=== PATIENT | female | born 1980 | race American Indian/Alaskan Native ===

== ENCOUNTER 2018-03-25 19:23 | Emergency (ER) | payer MEDICAID ==
[2018-03-25 20:31] LABS: Basophils # (Auto) 0.1 K/mm3 (0.0-0.1); Basophils % (Auto) 1.4 % (0.0-1.8); Eosinophils # (Auto) 0.1 K/mm3 (0.0-0.4); Eosinophils % (Auto) 1.5 % (0.0-4.3); Hematocrit 28.9 % (30.3-42.9); Lymphocytes # (Auto) 1.3 K/mm3 (1.2-5.4); Lymphocytes % (Auto) 15.2 % (13.4-35.0); Mean Corpuscular HGB Conc 31 % (30-34); Monocytes # (Auto) 0.5 K/mm3 (0.0-0.8); Monocytes % (Auto) 5.2 % (0.0-7.3); Platelet Count 337 K/mm3 (140-440); Red Blood Count 4.27 M/mm3 (3.65-5.03); Red Cell Distribution Width 18.8 % (13.2-15.2)
[2018-03-25 20:43] LABS: Mean Corpuscular Hemoglobin 21 pg (28-32); Mean Corpuscular Volume 68 fl (79-97)
[2018-03-25 20:44] LABS: BUN/Creatinine Ratio 12; Blood Urea Nitrogen 11 mg/dL (7-17); Calcium 9.3 mg/dL (8.4-10.2); Hemolysis Index 0
--- NOTE | 2018-03-25 21:08 | XRay Report ---
FINAL REPORT PROCEDURE: XR CHEST ROUTINE 2V TECHNIQUE: PA and lateral chest radiographs were obtained. CPT 30001 HISTORY: Shortness of breath COMPARISON: No prior studies are available for comparison. FINDINGS: Heart: Normal. Mediastinum/Vessels: Normal. Lungs/Pleural space: Normal. Bony thorax: No acute osseous abnormality. Other: A unipolar pacemaker is noted on the left side with lead in place. IMPRESSION: No acute pulmonary process..
[2018-03-26] MEDS ORDERED: HumuLIN R IV ONE (01:59)
[2018-03-26] MEDS ORDERED: ZOFRAN IV ONE ×2 (01:59→02:20)
[2018-03-26] MEDS ORDERED: BENADRYL IV ONE (02:20)
[2018-03-26] MEDS ORDERED: SUBLIMAZE IV ONE (02:20)
[2018-03-26 02:50] LABS: Bilirubin,Urine NEG (Negative); Blood,Urine NEG (Negative); Color,Urine Yellow (Yellow); Protein,Urine <15 mg/dL mg/dL (Negative); Urobilinogen,Urine < 2.0 mg/dL (<2.0)
[2018-03-26 02:59] LABS: HCG Qualitative,Urine Negative (Negative)
--- NOTE | 2018-03-26 03:02 | Emergency Department Report ---
HPI - General Chief Complaint: Weakness Time Seen by Provider: 03/26/18 01:01 - HPI HPI: The patient is a 38-year-old female whom presents for evaluation of chest pain. The patient has a history of diabetes, CHF, gastroparesis,. The patient reports 4days of constant bilateral chest pain, 10/10 in severity, sharp in quality, exacerbated with movement, and associated with diffuse generalized myalgias and arthralgias. The patient denies some to the chest, fever, cough, syncope, hemoptysis, unilateral leg swelling, oral contraceptive use, recent immobilization, history of DVT or PE. ED Past Medical Hx - Past Medical History Hx CVA: Yes (left side) Hx Congestive Heart Failure: Yes Hx Diabetes: Yes Hx of Cancer: Yes (pituary tumor) Additional medical history: Sleep apnea, anemia, gastroperesis - Surgical History Additional Surgical History: Defib placement - Social History Smoking Status: Current Every Day Smoker Substance Use Type: Alcohol - Medications Home Medications: Home Medications Medication Instructions Recorded Confirmed Last Taken Type ALBUTEROL Inhaler [ProAir HFA 2 puff IH QID PRN #1 inhalation 03/26/18 Unknown Rx Inhaler] Ondansetron [Zofran TAB] 4 mg PO Q8HR PRN #15 tablet 03/26/18 Unknown Rx traMADol [Ultram 50 MG tab] 50 mg PO Q6HR PRN #15 tablet 03/26/18 Unknown Rx ED Review of Systems ROS: Stated complaint: GOGO,BODY PAIN Other details as noted in HPI Constitutional: denies: fever ENT: denies: throat or neck pain Respiratory: denies: cough, shortness of breath Cardiovascular: reports chest pain Endocrine: denies unexplained weight loss or gain Gastrointestinal: denies: abdominal pain, nausea Genitourinary: denies: dysuria Musculoskeletal: denies: leg swelling Skin: denies: rash Neurological: denies: headache Hematological/Lymphatic: denies: easy bleeding or easy bruising Psych: denies sadness or hopelessness Physical Exam - Physical Exam Vital Signs: Vital Signs 03/25/18 03/25/18 03/26/18 19:35 19:50 02:24 Temperature 98.3 F 98.3 F 98.7 F Pulse Rate 89 90 60 Respiratory 20 20 16 Rate Blood Pressure 100/50 100/50 Blood Pressure 147/95 [Right] O2 Sat by Pulse 96 96 99 Oximetry Physical Exam: General: well-nourished, well-developed, no acute distress Head: Normocephalic, atraumatic Eyes: normal sclera ENT: Mucous membranes are pink and moist Neck: trachea midline, neck supple, No neck stiffness, no cervical adenopathy Respiratory: Breath sounds equal bilaterally, no wheezing, rales, or rhonchi Cardio: S1 and S2 present, no murmurs, rubs, gallops, capillary refill is brisk Abdomen: Normoactive bowel sounds, soft abdomen, no tenderness Chest WALL/Back: tenderness to palpation of the bilateral chest wall is present , no CVA tenderness with percussion Musc: No pitting edema Skin: No rash Neuro: no facial drooping, normal speech Psych: Normal affect ED Course Vital Signs 03/25/18 03/25/18 03/26/18 19:35 19:50 02:24 Temperature 98.3 F 98.3 F 98.7 F Pulse Rate 89 90 60 Respiratory 20 20 16 Rate Blood Pressure 100/50 100/50 Blood Pressure 147/95 [Right] O2 Sat by Pulse 96 96 99 Oximetry ED Medical Decision Making - Lab Data Result diagrams: 03/25/18 20:10 03/25/18 20:10 - Medical Decision Making The patient was seen and examined by myself. The patient is placed on a pvc monitor and continuous pulse ox. On initial evaluation, the patient was found to be in no distress. EKG was negative for findings suggestive of acute cardiac infarct. Labs and imaging are obtained. The patient is given IV pain medicine. Chest x-ray is negative for pneumothorax, focal consolidation, pulmonary vascular congestion, pleural effusion, or other obvious acute cardiopulmonary disease process. Lab results revealed elevated glucose level of 400, and otherwise were non-concerning including levels of troponin, WBC, hemoglobin, hematocrit, electrolytes, renal function. The patient is given IV insulin for treatment of her hyperglycemia. The patient was reevaluated and reported that their symptoms were markedly improved. As the patient has a RYAN risk score less than 2, and a well's score less than 2, the patient is at low risk of ACS or pulmonary emboli etiology of their symptoms. The patient is stable for discharge with outpatient follow-up. The patient is given follow-up and return instructions. The patient expressed understanding and agreed with the plan. The patient is discharged in stable condition. Critical care attestation.: If time is entered above; I have spent that time in minutes in the direct care of this critically ill patient, excluding procedure time. ED Disposition Clinical Impression: Acute chest pain, Acute hyperglycemia, Nausea alone Dyspnea, unspecified Qualifiers: Dyspnea type: unspecified Qualified Code(s): R06.00 - Dyspnea, unspecified Disposition: TO HOME OR SELFCARE Is pt being admited?: No Does the pt Need Aspirin: No Condition: Stable Instructions: Chest Pain (ED), Costochondritis (ED), Dyspnea (ED), Diabetic Hyperglycemia (ED) Prescriptions: ALBUTEROL Inhaler [ProAir HFA Inhaler] 2 puff IH QID PRN #1 inhalation PRN Reason: Shortness Of Breath Ondansetron [Zofran TAB] 4 mg PO Q8HR PRN #15 tablet PRN Reason: Nausea traMADol [Ultram 50 MG tab] 50 mg PO Q6HR PRN #15 tablet PRN Reason: Pain Referrals: PRIMARY CARE,MD [Primary Care Provider] - 3-5 Days Time of Disposition: 03:01
--- NOTE | 2018-03-26 03:20 | XRay Report ---
FINAL REPORT EXAM: XR CHEST 1V AP HISTORY: chest pain TECHNIQUE: A portable upright view the chest was submitted. Comparison is made to the study of 03/25/2018. FINDINGS: The heart size is normal. The lungs are not congested. There are no localized infiltrates or effusions. There is a pacemaker overlying the left chest wall with the lead in the right ventricle. The skeletal structures do not show any acute changes. IMPRESSION: No active chest disease.
[2018-03-26 04:03] VITALS: BP 155/92
== END 2018-03-26 04:30 | disposition home or self-care (01) ==
LOC: ED 19:23 → MERGE 19:23 → ED 03-26 04:30
DX: E11.65 Type 2 diabetes mellitus with hyperglycemia (principal); R07.89 Other chest pain; R11.0 Nausea; R06.00 Dyspnea, unspecified; I50.9 Heart failure, unspecified; F17.200 Nicotine dependence, unspecified, uncomplicated; Z86.73 Personal history of transient ischemic attack (TIA), and cerebral infarction without residual deficits
CPT/HCPCS: 36415; 71045; 71046; 80048; 81001; 81025; 82550; 82962; 83880; 84484; 84703; 85025; 93005; 93010; 96374; 96375; 99285; J1200; J2405; J3010; J1815

== ENCOUNTER 2018-03-28 13:34 | Inpatient (IN) | payer MEDICAID ==
[2018-03-28] MEDS ORDERED: NACL 0.9% 1000 ML 1,000 ML IV ONE (14:34)
[2018-03-28] MEDS ORDERED: TYLENOL PO ONE (14:50)
[2018-03-28 14:56] LABS: Basophils # (Auto) 0.1 K/mm3 (0.0-0.1); Basophils % (Auto) 1.1 % (0.0-1.8); Eosinophils # (Auto) 0.1 K/mm3 (0.0-0.4); Eosinophils % (Auto) 1.2 % (0.0-4.3); Lymphocytes # (Auto) 1.9 K/mm3 (1.2-5.4); Lymphocytes % (Auto) 18.3 % (13.4-35.0); Mean Corpuscular HGB Conc 30 % (30-34); Monocytes # (Auto) 0.5 K/mm3 (0.0-0.8); Monocytes % (Auto) 4.8 % (0.0-7.3); Platelet Count 420 K/mm3 (140-440); Red Blood Count 5.16 M/mm3 (3.65-5.03); Red Cell Distribution Width 18.8 % (13.2-15.2)
[2018-03-28 15:01] LABS: Hematocrit 34.9 % (30.3-42.9); Hemoglobin 10.6 gm/dl (10.1-14.3); Mean Corpuscular Hemoglobin 21 pg (28-32); Mean Corpuscular Volume 68 fl (79-97)
[2018-03-28 15:15] LABS: Alanine Aminotransferase 14 units/L (7-56); Albumin 4.2 g/dL (3.9-5); BUN/Creatinine Ratio 13; Blood Urea Nitrogen 12 mg/dL (7-17); Calcium 9.3 mg/dL (8.4-10.2); Hemolysis Index 7
[2018-03-28] MEDS ORDERED: ZOFRAN IV ONE (20:58)
[2018-03-28] MEDS ORDERED: SUBLIMAZE IV ONE (21:07)
--- NOTE | 2018-03-28 21:15 | Emergency Department Report ---
HPI - General Chief Complaint: Nausea/Vomiting/Diarrhea Time Seen by Provider: 03/28/18 20:58 - HPI HPI: Room 4 The patient is a 38-year-old female presenting with a chief complaint of nausea vomiting and body aches. The patient has a history of gastroparesis and states the past 2 weeks she's had diffuse body aches in addition to nausea and vomiting. Patient states she came to the ED earlier in the week and was given medication which improved her symptoms until the next day. The following day the patient states her symptoms began returning and gradually worsening. Patient denies any history of fever at home. Patient gives her pain score a of 10/10. Location: Diffuse body, GI system Duration: 2 weeks Quality: Body aches, vomiting Severity: 10/10 Modifying factors: [see above] Context: [see above] Mode of transportation: [not driving] ED Past Medical Hx - Past Medical History Previous Medical History?: Yes Hx CVA: Yes Hx Congestive Heart Failure: Yes Additional medical history: gastroparesis - Surgical History Past Surgical History?: Yes Additional Surgical History: Pituitary tumor removal, cryosurgery for cervical CA - Family History Family history: no significant - Social History Smoking Status: Current Every Day Smoker (1/2 pack per day) Substance Use Type: None (denies illicit drug use) ED Review of Systems ROS: Stated complaint: WEAKNESS Other details as noted in HPI Constitutional: denies: fever Eyes: denies: eye pain ENT: denies: throat pain Respiratory: no symptoms reported Cardiovascular: denies: chest pain Endocrine: denies: unexplained weight loss Gastrointestinal: abdominal pain, nausea, vomiting Genitourinary: denies: dysuria Musculoskeletal: myalgia Skin: denies: change in color Neurological: denies: headache Physical Exam - Physical Exam Vital Signs: Vital Signs 03/28/18 03/28/18 14:28 20:20 Temperature 100.2 F H 98.5 F Pulse Rate 70 77 Respiratory 16 18 Rate Blood Pressure 192/101 Blood Pressure 154/93 [Left] O2 Sat by Pulse 95 100 Oximetry Physical Exam: GENERAL: The patient is well-developed well-nourished female sitting in chair not appearing to be in acute distress HEENT: Normocephalic. Atraumatic. Extraocular motions are intact. Patient has moist mucous membranes. NECK: Supple. Trachea midline CHEST/LUNGS: Clear to auscultation. There is no respiratory distress noted. HEART/CARDIOVASCULAR: Regular. There is no tachycardia. There is no gallop rub or murmur. ABDOMEN: Abdomen is soft, but diffusely tender to palpation. There is no rebound or guarding. Patient has normal bowel sounds. There is no abdominal distention. SKIN: There is no rash. There is no edema. There is no diaphoresis. NEURO: The patient is awake, alert, and oriented. The patient is cooperative. The patient has normal speech MUSCULOSKELETAL: There is no evidence of acute injury. ED Course Vital Signs 03/28/18 03/28/18 14:28 20:20 Temperature 100.2 F H 98.5 F Pulse Rate 70 77 Respiratory 16 18 Rate Blood Pressure 192/101 Blood Pressure 154/93 [Left] O2 Sat by Pulse 95 100 Oximetry - Reevaluation(s) Reevaluation #1: 03/28/18 23:57 Patient continues to complain of abdominal pain despite multiple analgesics. Will admit the patient to the hospital for pain control ED Medical Decision Making - Lab Data Result diagrams: 03/28/18 14:37 03/28/18 14:37 Laboratory Tests 03/28/18 03/28/18 03/28/18 14:37 14:37 14:37 WBC 10.1 RBC 5.16 H Hgb 10.6 Hct 34.9 MCV 68 L MCH 21 L MCHC 30 RDW 18.8 H Plt Count 420 Lymph % (Auto) 18.3 [place] % (Auto) 4.8 Eos % (Auto) 1.2 Baso % (Auto) 1.1 Lymph # 1.9 [place] # 0.5 Eos # 0.1 Baso # 0.1 Seg Neutrophils % 74.6 H Seg Neutrophils # 7.5 Sodium 138 Potassium 3.8 Chloride 93.5 L Carbon Dioxide 25 Anion Gap 23 BUN 12 Creatinine 0.9 Estimated GFR > 60 BUN/Creatinine Ratio 13 Glucose 383 H Calcium 9.3 Total Bilirubin 0.30 AST 13 ALT 14 Alkaline Phosphatase 106 Total Protein 7.3 Albumin 4.2 Albumin/Globulin Ratio 1.4 Lipase HCG, Qual Negative Urine Color Urine Turbidity Urine pH Ur Specific [place] Urine Protein Urine Glucose (UA) Urine Ketones Urine Blood Urine Nitrite Urine Bilirubin Urine Urobilinogen Ur Leukocyte Esterase Urine WBC (Auto) Urine RBC (Auto) U Epithel Cells (Auto) Urine Mucus 03/28/18 03/28/18 21:15 22:14 WBC RBC Hgb Hct MCV MCH MCHC RDW Plt Count Lymph % (Auto) [place] % (Auto) Eos % (Auto) Baso % (Auto) Lymph # [place] # Eos # Baso # Seg Neutrophils % Seg Neutrophils # Sodium Potassium Chloride Carbon Dioxide Anion Gap BUN Creatinine Estimated GFR BUN/Creatinine Ratio Glucose Calcium Total Bilirubin AST ALT Alkaline Phosphatase Total Protein Albumin Albumin/Globulin Ratio Lipase 48 HCG, Qual Urine Color Yellow Urine Turbidity Clear Urine pH 6.0 Ur Specific [place] 1.027 Urine Protein <15 mg/dl Urine Glucose (UA) >=500 Urine Ketones 80 Urine Blood Neg Urine Nitrite Neg Urine Bilirubin Neg Urine Urobilinogen < 2.0 Ur Leukocyte Esterase Tr Urine WBC (Auto) 2.0 Urine RBC (Auto) 2.0 U Epithel Cells (Auto) 2.0 Urine Mucus Few - Radiology Data Radiology results: report reviewed (CT abdomen and pelvis), image reviewed (CT abdomen and pelvis) [facility] [address] [place] [address] Cat Scan Report Signed Patient: JENNIFER BA MR#: [id number] : 1980 Acct:[id number] Age/Sex: 38 / F ADM Date: 03/28/18 Loc: ED Attending Dr: Ordering Physician: NOBLE JO MD Date of Service: 03/28/18 Procedure(s): CT abdomen pelvis w con Accession Number(s): [id number] cc: NOBLE JO MD FINAL REPORT PROCEDURE: CT ABDOMEN PELVIS W CON TECHNIQUE: Computerized axial tomography of the abdomen and pelvis was performed after the IV injection of iodinated nonionic contrast. HISTORY: abdominal pain nausea vomiting COMPARISON: No prior studies are available for comparison. FINDINGS: Visualized lower thorax: No significant abnormality. Liver: Normal size and attenuation. Spleen: Normal size and attenuation. Gallbladder and biliary system: Cholecystectomy clips. Pancreas: Normal. Adrenals: Normal. Kidneys: Normal. GI tract: Normal. Lymph nodes and mesentery: Normal. Vasculature: Normal. Bladder: Normal. Reproductive organs: Normal uterus and adnexa. Peritoneum: No free fluid. Musculoskeletal structures: No significant abnormality. Other: None. IMPRESSION: No acute intra abdominal abnormality. No mass or obstruction Transcribed By: BRP Dictated By: DARRYL ALANIS MD Electronically Authenticated By: DARRYL ALANIS MD Signed Date/Time: 03/28/182251 DD/ 51 TD/TT: 03/28/182251 - Differential Diagnosis gastroparesis, pyelonephritis, small bowel obstruction, UTI Critical care attestation.: If time is entered above; I have spent that time in minutes in the direct care of this critically ill patient, excluding procedure time. ED Disposition Clinical Impression: Nausea & vomiting, Gastroparesis, Intractable abdominal pain Disposition: OP ADMIT IP TO THIS HOSP Is pt being admited?: Yes Does the pt Need Aspirin: No Condition: Fair Referrals: PRIMARY CARE, [Primary Care Provider] - 3-5 Days Time of Disposition: 00:00 (hospitalist paged (Dr Solomon))
[2018-03-28 21:24] LABS: Bilirubin,Urine NEG (Negative); Blood,Urine NEG (Negative); Color,Urine Yellow (Yellow); Mucus,Urine FEW /HPF; Protein,Urine <15 mg/dL mg/dL (Negative); Urobilinogen,Urine < 2.0 mg/dL (<2.0)
[2018-03-28] MEDS ORDERED: MORPHINE IV ONE ×2 (21:45→23:56)
[2018-03-28] MEDS ORDERED: BENADRYL IV ONE (21:45)
--- NOTE | 2018-03-28 22:57 | Cat Scan Report ---
FINAL REPORT PROCEDURE: CT ABDOMEN PELVIS W CON TECHNIQUE: Computerized axial tomography of the abdomen and pelvis was performed after the IV injection of iodinated nonionic contrast. HISTORY: abdominal pain nausea vomiting COMPARISON: No prior studies are available for comparison. FINDINGS: Visualized lower thorax: No significant abnormality. Liver: Normal size and attenuation. Spleen: Normal size and attenuation. Gallbladder and biliary system: Cholecystectomy clips. Pancreas: Normal. Adrenals: Normal. Kidneys: Normal. GI tract: Normal. Lymph nodes and mesentery: Normal. Vasculature: Normal. Bladder: Normal. Reproductive organs: Normal uterus and adnexa. Peritoneum: No free fluid. Musculoskeletal structures: No significant abnormality. Other: None. IMPRESSION: No acute intra abdominal abnormality. No mass or obstruction
[2018-03-28] MEDS ORDERED: DILAUDID IV ONE (23:35)
[2018-03-29] MEDS ORDERED: NACL 0.9% 1000 ML 1,000 ML ONE ×2 (00:10→04:30)
[2018-03-29] MEDS ORDERED: TYLENOL PO PRN (01:18)
[2018-03-29] MEDS ORDERED: SODIUM CHLORIDE FLUSH SYRINGE 10 ML IV PRN (01:18)
[2018-03-29] MEDS ORDERED: D50W (25GM) Syringe IV PRN (01:29)
--- NOTE | 2018-03-29 02:58 | History and Physical Report ---
History of Present Illness Date of examination: 03/29/18 Date of admission: 03/29/18 Chief complaint: Nausea and vomiting History of present illness: Patient is a 38 year old -[place] female with history of diabetes mellitus who presented to the ED on account of 2 days history of nausea with vomiting. She has associated generalized body aches, lower abdomen pain, fever without chills, headaches, dizziness, left-sided chest pain and shortness of breath. No diaphoresis, palpitations, leg swelling, orthopnea or PND. No constipation, diarrhea, dysuria or frequency. No syncope or loss of consciousness. Past History Past Medical History: diabetes, other (history of CVA and CHF) Past Surgical History: tonsillectomy, Other (cryosurgery for cervical cancer, pituitary tumor removal) Social history: smoking (smokes half pack of cigarettes per day. She denies alcohol or illicit drug use) Family history: other (reviewed and noncontributory) Medications and Allergies Allergies Allergy/AdvReac Type Severity Reaction Status Date / Time No Known Allergies Allergy Verified 03/28/18 14:28 Active Meds: Active Medications Acetaminophen (Tylenol) 650 mg PO Q4H PRN PRN Reason: Pain MILD(1-3)/Fever >100.5/LOPEZ Dextrose (D50w (25gm) Syringe) 50 ml IV PRN PRN PRN Reason: Hypoglycemia Sodium Chloride (Nacl 0.9% 1000 Ml) 1,000 mls @ 100 mls/hr IV DIRECT SASHA Insulin Glargine (Lantus) 20 units SUB-Q BID SASHA Insulin Human Lispro (Humalog) 0 unit SUB-Q ACHS SASHA; Protocol Metoclopramide HCl (Reglan) 5 mg IV QID SASHA Morphine Sulfate (Morphine) 2 mg IV Q4H PRN PRN Reason: Pain, Moderate (4-6) Ondansetron HCl (Zofran) 4 mg IV Q6H PRN PRN Reason: Nausea And Vomiting Oxycodone/Acetaminophen (Percocet 5/325) 1 tab PO Q6H PRN PRN Reason: Pain, Moderate (4-6) Pantoprazole Sodium (Protonix) 40 mg IV BID SASHA Sodium Chloride (Sodium Chloride Flush Syringe 10 Ml) 10 ml IV BID SASHA Sodium Chloride (Sodium Chloride Flush Syringe 10 Ml) 10 ml IV PRN PRN PRN Reason: LINE FLUSH Sucralfate (Carafate) 1 gm PO QID SASHA Review of Systems All systems: negative (except as documented in the HPI, all other systems were reviewed and negative) Exam - Constitutional Vitals: Temp Pulse Resp BP Pulse Ox 98.5 F 75 18 189/96 100 03/28/18 20:20 03/28/18 22:31 03/29/18 00:50 03/28/18 22:31 03/28/18 22:31 General appearance: Present: no acute distress, obese - EENT Eyes: Present: PERRL, EOM intact ENT: hearing intact, clear oral mucosa - Neck Neck: Present: supple, normal ROM - Respiratory Respiratory effort: normal Respiratory: bilateral: CTA - Cardiovascular Rhythm: regular Heart Sounds: Present: S1 & S2 - Extremities Extremities: No edema Peripheral Pulses: within normal limits - Abdominal General gastrointestinal: Present: soft, tender (mild and generalized), normal bowel sounds, other (obese) - Integumentary Integumentary: Present: clear, warm, dry - Musculoskeletal Musculoskeletal: strength equal bilaterally - Neurologic Neurologic: CNII-XII intact Results - Labs CBC & Chem 7: 03/28/18 14:37 03/28/18 14:37 Labs: Laboratory Last Values WBC 10.1 K/mm3 (4.5-11.0) 03/28/18 14:37 RBC 5.16 M/mm3 (3.65-5.03) H 03/28/18 14:37 Hgb 10.6 gm/dl (10.1-14.3) 03/28/18 14:37 Hct 34.9 % (30.3-42.9) 03/28/18 14:37 MCV 68 fl (79-97) L 03/28/18 14:37 MCH 21 pg (28-32) L 03/28/18 14:37 MCHC 30 % (30-34) 03/28/18 14:37 RDW 18.8 % (13.2-15.2) H 03/28/18 14:37 Plt Count 420 K/mm3 (140-440) 03/28/18 14:37 Lymph % (Auto) 18.3 % (13.4-35.0) 03/28/18 14:37 [place] % (Auto) 4.8 % (0.0-7.3) 03/28/18 14:37 Eos % (Auto) 1.2 % (0.0-4.3) 03/28/18 14:37 Baso % (Auto) 1.1 % (0.0-1.8) 03/28/18 14:37 Lymph # 1.9 K/mm3 (1.2-5.4) 03/28/18 14:37 [place] # 0.5 K/mm3 (0.0-0.8) 03/28/18 14:37 Eos # 0.1 K/mm3 (0.0-0.4) 03/28/18 14:37 Baso # 0.1 K/mm3 (0.0-0.1) 03/28/18 14:37 Seg Neutrophils % 74.6 % (40.0-70.0) H 03/28/18 14:37 Seg Neutrophils # 7.5 K/mm3 (1.8-7.7) 03/28/18 14:37 Sodium 138 mmol/L (137-145) 03/28/18 14:37 Potassium 3.8 mmol/L (3.6-5.0) 03/28/18 14:37 Chloride 93.5 mmol/L (98-107) L 03/28/18 14:37 Carbon Dioxide 25 mmol/L (22-30) 03/28/18 14:37 Anion Gap 23 mmol/L 03/28/18 14:37 BUN 12 mg/dL (7-17) 03/28/18 14:37 Creatinine 0.9 mg/dL (0.7-1.2) 03/28/18 14:37 Estimated GFR > 60 ml/min 03/28/18 14:37 BUN/Creatinine Ratio 13 % 03/28/18 14:37 Glucose 383 mg/dL (65-100) H 03/28/18 14:37 Calcium 9.3 mg/dL (8.4-10.2) 03/28/18 14:37 Total Bilirubin 0.30 mg/dL (0.1-1.2) 03/28/18 14:37 AST 13 units/L (5-40) 03/28/18 14:37 ALT 14 units/L (7-56) 03/28/18 14:37 Alkaline Phosphatase 106 units/L (35-129) 03/28/18 14:37 Total Protein 7.3 g/dL (6.3-8.2) 03/28/18 14:37 Albumin 4.2 g/dL (3.9-5) 03/28/18 14:37 Albumin/Globulin Ratio 1.4 % 03/28/18 14:37 Lipase 48 units/L (13-60) 03/28/18 22:14 HCG, Qual Negative (Negative) 03/28/18 14:37 Urine Color Yellow (Yellow) 03/28/18 21:15 Urine Turbidity Clear (Clear) 03/28/18 21:15 Urine pH 6.0 (5.0-7.0) 03/28/18 21:15 Ur Specific [place] 1.027 (1.003-1.030) 03/28/18 21:15 Urine Protein <15 mg/dl mg/dL (Negative) 03/28/18 21:15 Urine Glucose (UA) >=500 mg/dL (Negative) 03/28/18 21:15 Urine Ketones 80 mg/dL (Negative) 03/28/18 21:15 Urine Blood Neg (Negative) 03/28/18 21:15 Urine Nitrite Neg (Negative) 03/28/18 21:15 Urine Bilirubin Neg (Negative) 03/28/18 21:15 Urine Urobilinogen < 2.0 mg/dL (<2.0) 03/28/18 21:15 Ur Leukocyte Esterase Tr (Negative) 03/28/18 21:15 Urine WBC (Auto) 2.0 /HPF (0.0-6.0) 03/28/18 21:15 Urine RBC (Auto) 2.0 /HPF (0.0-6.0) 03/28/18 21:15 U Epithel Cells (Auto) 2.0 /HPF (0-13.0) 03/28/18 21:15 Urine Mucus Few /HPF 03/28/18 21:15 Assessment and Plan Assessment and plan: Intractable nausea and vomiting, likely secondary to gastroparesis -CT abdomen/pelvis negative, lipase level wnl -Pt placed on IV Reglan -Consider GI consult if no improvement Intractable generalized abdominal pain, probably secondary to gastritis/GERD -Pt placed on IV Protonix and sucralfate Atypical chest pain, rule out ACS -Serial troponin level monitoring -Monitor on telemetry 24 hours Hypertensive emergency with SBP>190 -Placed on when necessary IV hydralazine Diabetes mellitus with hyperglycemia -Placed on both basal and prandial insulin regimen -Check hemoglobin A1c level Fever, exact cause unknown -Urinalysis negative -Follow up blood culture results Morbid obesity with BMI of 47.2 -Weight loss recommended History of Obstructive sleep apnea -cont CPAP at night Prophylaxis -DVT prophylaxis with SCD 38 minutes spent coordinating care
[2018-03-29] MEDS ORDERED: APRESOLINE IV PRN (03:11)
[2018-03-29] MEDS: MORPHINE IV PRN ×4 (04:20→20:22)
[2018-03-29] MEDS ORDERED: MORPHINE ONE (04:30)
[2018-03-29] MEDS: BENADRYL PO PRN (05:29)
[2018-03-29] MEDS: NACL 0.9% 1000 ML 1,000 ML IV SCH ×2 (05:52→14:52)
--- NOTE | 2018-03-29 08:32 | Event Note ---
Date: 03/29/18 Patient is 38 yo presented with intractable nausea and vomiting likely diabetic gastroparesis. Continue Reglan.
[2018-03-29] MEDS ORDERED: LANTUS SUB-Q SCH (10:00)
[2018-03-29 10:04] LABS: Chol/HDL Ratio 5.44 %; HDL Cholesterol 29 mg/dL (40-59); LDL Cholesterol,Direct 118 mg/dL (50-130)
[2018-03-29] MEDS: ZOFRAN IV PRN (10:34)
[2018-03-29] MEDS: REGLAN IV SCH ×4 (10:34→23:00)
[2018-03-29] MEDS: PROTONIX IV SCH ×2 (10:34→23:00)
[2018-03-29] MEDS: CARAFATE PO SCH ×4 (10:35→23:00)
[2018-03-29] MEDS ORDERED: ASPIRIN PO STA (14:00)
[2018-03-29] MEDS: HumaLOG SUB-Q SCH ×3 (14:48→23:02)
[2018-03-29] MEDS: SODIUM CHLORIDE FLUSH SYRINGE 10 ML IV SCH ×2 (14:51→23:02)
[2018-03-29] MEDS ORDERED: NITRO-BID 2% TP SCH (15:00)
[2018-03-29] MEDS: LANTUS SUB-Q SCH (23:01)
[2018-03-30] MEDS: MORPHINE IV PRN ×6 (00:23→21:36)
[2018-03-30] MEDS: NACL 0.9% 1000 ML 1,000 ML IV SCH ×3 (04:32→21:55)
[2018-03-30 07:29] LABS: BUN/Creatinine Ratio 19; Blood Urea Nitrogen 13 mg/dL (7-17); Calcium 8.4 mg/dL (8.4-10.2); Hemolysis Index 12
[2018-03-30] MEDS: HumaLOG SUB-Q SCH ×7 (08:53→21:50)
[2018-03-30] MEDS: BENADRYL PO PRN ×2 (08:58→15:24)
[2018-03-30] MEDS: ZOFRAN IV PRN (08:58)
[2018-03-30] MEDS ORDERED: ASPIRIN PO SCH (10:00)
--- NOTE | 2018-03-30 10:32 | Progress Note ---
Assessment and Plan Assessment and plan: Intractable nausea and vomiting. Change Reglan dose to 10mg iv qac and hs Gastroparesis. Continue Reglan at higher dose Diabetes mellitus type 2 uncontrolled. Continue fingerstick glucose q ac and hs Morbid obesity. Counseled on diet and exercise. Full code status History Interval history: Still having nausea and vomiting Gen body pain Hospitalist Physical - Physical exam Narrative exam: Constitutional; Not in acute distress, morbidly obese HEENT: Atraumatic, normocephalic Neck: supple, no lymphadenopathy, JVD or thyromegaly Lungs: Clear to auscultation, bilaterally, no wheeze, no crackles CVS; S1-S2 regular, no murmurs, rubs or gallop, Abdomen; soft, non-tender, non distended,bowel sounds are normal, Musculoskeletal; No edema, no clubbing, no cyanosis, OUTSOLE SPLICER: awake, alert,oriented x3, no focal neurological signs - Constitutional Vitals: Temp Pulse Resp BP Pulse Ox 97.4 F L 56 L 18 118/56 97 03/30/18 05:08 03/30/18 05:08 03/30/18 08:58 03/30/18 05:08 03/30/18 05:08 General appearance: Present: no acute distress, obese Results - Labs CBC & Chem 7: 03/28/18 14:37 03/30/18 06:26 Labs: Laboratory Last Values WBC 10.1 K/mm3 (4.5-11.0) 03/28/18 14:37 RBC 5.16 M/mm3 (3.65-5.03) H 03/28/18 14:37 Hgb 10.6 gm/dl (10.1-14.3) 03/28/18 14:37 Hct 34.9 % (30.3-42.9) 03/28/18 14:37 MCV 68 fl (79-97) L 03/28/18 14:37 MCH 21 pg (28-32) L 03/28/18 14:37 MCHC 30 % (30-34) 03/28/18 14:37 RDW 18.8 % (13.2-15.2) H 03/28/18 14:37 Plt Count 420 K/mm3 (140-440) 03/28/18 14:37 Lymph % (Auto) 18.3 % (13.4-35.0) 03/28/18 14:37 [place] % (Auto) 4.8 % (0.0-7.3) 03/28/18 14:37 Eos % (Auto) 1.2 % (0.0-4.3) 03/28/18 14:37 Baso % (Auto) 1.1 % (0.0-1.8) 03/28/18 14:37 Lymph # 1.9 K/mm3 (1.2-5.4) 03/28/18 14:37 [place] # 0.5 K/mm3 (0.0-0.8) 03/28/18 14:37 Eos # 0.1 K/mm3 (0.0-0.4) 03/28/18 14:37 Baso # 0.1 K/mm3 (0.0-0.1) 03/28/18 14:37 Seg Neutrophils % 74.6 % (40.0-70.0) H 03/28/18 14:37 Seg Neutrophils # 7.5 K/mm3 (1.8-7.7) 03/28/18 14:37 Sodium 137 mmol/L (137-145) 03/30/18 06:26 Potassium 4.0 mmol/L (3.6-5.0) 03/30/18 06:26 Chloride 101.2 mmol/L (98-107) 03/30/18 06:26 Carbon Dioxide 26 mmol/L (22-30) 03/30/18 06:26 Anion Gap 14 mmol/L 03/30/18 06:26 BUN 13 mg/dL (7-17) 03/30/18 06:26 Creatinine 0.7 mg/dL (0.7-1.2) 03/30/18 06:26 Estimated GFR > 60 ml/min 03/30/18 06:26 BUN/Creatinine Ratio 19 % 03/30/18 06:26 Glucose 314 mg/dL (65-100) H 03/30/18 06:26 POC Glucose 287 (70-105) H 03/30/18 08:10 Calcium 8.4 mg/dL (8.4-10.2) 03/30/18 06:26 Magnesium 2.20 mg/dL (1.7-2.3) 03/30/18 06:26 Total Bilirubin 0.30 mg/dL (0.1-1.2) 03/28/18 14:37 AST 13 units/L (5-40) 03/28/18 14:37 ALT 14 units/L (7-56) 03/28/18 14:37 Alkaline Phosphatase 106 units/L (35-129) 03/28/18 14:37 Troponin T < 0.010 ng/mL (0.00-0.029) 03/29/18 15:15 Total Protein 7.3 g/dL (6.3-8.2) 03/28/18 14:37 Albumin 4.2 g/dL (3.9-5) 03/28/18 14:37 Albumin/Globulin Ratio 1.4 % 03/28/18 14:37 Triglycerides 169 mg/dL (2-149) H 03/29/18 07:09 Cholesterol 158 mg/dL (50-199) 03/29/18 07:09 LDL Cholesterol Direct 118 mg/dL (50-130) 03/29/18 07:09 HDL Cholesterol 29 mg/dL (40-59) L 03/29/18 07:09 Cholesterol/HDL Ratio 5.44 % 03/29/18 07:09 Lipase 48 units/L (13-60) 03/28/18 22:14 HCG, Qual Negative (Negative) 03/28/18 14:37 Urine Color Yellow (Yellow) 03/28/18 21:15 Urine Turbidity Clear (Clear) 03/28/18 21:15 Urine pH 6.0 (5.0-7.0) 03/28/18 21:15 Ur Specific [place] 1.027 (1.003-1.030) 03/28/18 21:15 Urine Protein <15 mg/dl mg/dL (Negative) 03/28/18 21:15 Urine Glucose (UA) >=500 mg/dL (Negative) 03/28/18 21:15 Urine Ketones 80 mg/dL (Negative) 03/28/18 21:15 Urine Blood Neg (Negative) 03/28/18 21:15 Urine Nitrite Neg (Negative) 03/28/18 21:15 Urine Bilirubin Neg (Negative) 03/28/18 21:15 Urine Urobilinogen < 2.0 mg/dL (<2.0) 03/28/18 21:15 Ur Leukocyte Esterase Tr (Negative) 03/28/18 21:15 Urine WBC (Auto) 2.0 /HPF (0.0-6.0) 03/28/18 21:15 Urine RBC (Auto) 2.0 /HPF (0.0-6.0) 03/28/18 21:15 U Epithel Cells (Auto) 2.0 /HPF (0-13.0) 03/28/18 21:15 Urine Mucus Few /HPF 03/28/18 21:15
[2018-03-30] MEDS: CARAFATE PO SCH ×4 (10:42→21:35)
[2018-03-30] MEDS: REGLAN IV SCH ×2 (10:42→13:06)
[2018-03-30] MEDS: SODIUM CHLORIDE FLUSH SYRINGE 10 ML IV SCH ×2 (10:42→21:35)
[2018-03-30] MEDS: PROTONIX PO SCH ×2 (10:42→21:36)
[2018-03-30] MEDS: PERCOCET 5/325 PO PRN (10:45)
[2018-03-30] MEDS: REGLAN PO SCH ×2 (17:25→21:35)
[2018-03-30] MEDS: LANTUS SUB-Q SCH (21:50)
[2018-03-31] MEDS: PERCOCET 5/325 PO PRN (02:06)
[2018-03-31] MEDS: MORPHINE IV PRN ×2 (05:36→09:54)
--- NOTE | 2018-03-31 09:50 | Discharge Summary ---
Providers - Providers Date of Admission: 03/29/18 01:18 Date of discharge: 03/31/18 Attending physician: KRISTEN SAUL Primary care physician: LUIS FERNANDO NG MD Hospitalization Condition: Fair Disposition: DC-01 TO HOME OR SELFCARE Core Measure Documentation - Palliative Care Palliative Care/ Comfort Measures: Not Applicable - Core Measures Any of the following diagnoses?: none Exam - Constitutional Vitals: Temp Pulse Resp BP Pulse Ox 98.2 F 67 18 169/92 97 03/31/18 05:21 03/31/18 05:21 03/31/18 05:36 03/31/18 05:21 03/31/18 05:21 Plan Activity: no restrictions Diet: low fat, low cholesterol, low salt, diabetic Additional Instructions: 1.Follow up with PCP in 1 week Follow up with: PRIMARY CARE, [Primary Care Provider] - 3-5 Days Prescriptions: Metoclopramide HCl [Reglan TAB] 5 mg PO TIDAC PRN #20 tablet PRN Reason: nausea or vomiting traMADol [Ultram 50 MG tab] 50 mg PO Q6HR PRN #12 tablet PRN Reason: Pain
[2018-03-31] MEDS: REGLAN PO SCH ×2 (09:53→13:33)
[2018-03-31] MEDS: PROTONIX PO SCH (09:53)
[2018-03-31] MEDS: CARAFATE PO SCH ×2 (09:53→13:33)
[2018-03-31] MEDS: SODIUM CHLORIDE FLUSH SYRINGE 10 ML IV SCH (09:54)
[2018-03-31] MEDS: HumaLOG SUB-Q SCH ×5 (09:55→13:38)
[2018-03-31 12:36] VITALS: BP 132/66
== END 2018-03-31 14:35 | disposition home or self-care (01) | DRG 74 ==
LOC: ED 13:34 → 3A 03-29 01:18
PROVIDERS: ADMIT Internal Medicine; ATTEND Internal Medicine
PROC: 5A09357 Assistance with Respiratory Ventilation, Less than 24 Consecutive Hours, Continuous Positive Airway Pressure (ICD-10-PCS; principal; 2018-03-29)
DX: E11.43 Type 2 diabetes mellitus with diabetic autonomic (poly)neuropathy (principal); K31.84 Gastroparesis; E66.01 Morbid (severe) obesity due to excess calories; I50.9 Heart failure, unspecified; F17.210 Nicotine dependence, cigarettes, uncomplicated; R07.89 Other chest pain; I16.1 Hypertensive emergency; E11.65 Type 2 diabetes mellitus with hyperglycemia; G47.33 Obstructive sleep apnea (adult) (pediatric); Z68.42 Body mass index [BMI] 45.0-49.9, adult; Z86.73 Personal history of transient ischemic attack (TIA), and cerebral infarction without residual deficits; Z85.41 Personal history of malignant neoplasm of cervix uteri; K21.9 Gastro-esophageal reflux disease without esophagitis; K29.70 Gastritis, unspecified, without bleeding
CPT/HCPCS: 36415; 74177; 80048; 80053; 80061; 81001; 82962; 83690; 83735; 84484; 84703; 85025; 87040; 93005; 93010; 94660; 94760; C9113; J1170; J1200; J1815; J2270; J2405; J2765; J3010; J7030; Q9967

== ENCOUNTER 2018-04-08 12:58 | Emergency (ER) | payer MEDICAID ==
[2018-04-08 13:47] LABS: Basophils # (Auto) 0.1 K/mm3 (0.0-0.1); Basophils % (Auto) 0.6 % (0.0-1.8); Eosinophils # (Auto) 0.1 K/mm3 (0.0-0.4); Eosinophils % (Auto) 1.4 % (0.0-4.3); Hematocrit 31.8 % (30.3-42.9); Hemoglobin 9.9 gm/dl (10.1-14.3); Lymphocytes # (Auto) 1.8 K/mm3 (1.2-5.4); Lymphocytes % (Auto) 18.6 % (13.4-35.0); Mean Corpuscular HGB Conc 31 % (30-34); Mean Corpuscular Hemoglobin 21 pg (28-32); Mean Corpuscular Volume 66 fl (79-97); Monocytes # (Auto) 0.5 K/mm3 (0.0-0.8); Monocytes % (Auto) 5.6 % (0.0-7.3); Platelet Count 401 K/mm3 (140-440); Red Blood Count 4.79 M/mm3 (3.65-5.03); Red Cell Distribution Width 18.7 % (13.2-15.2)
[2018-04-08 13:59] LABS: BUN/Creatinine Ratio 12; Blood Urea Nitrogen 11 mg/dL (7-17); Hemolysis Index 29
--- NOTE | 2018-04-08 14:31 | XRay Report ---
ROUTINE CHEST, TWO VIEWS: HISTORY: chest pain, shortness of breath. The trachea, heart, mediastinal contour, lung desai and bony thorax are unremarkable. A single lead pacemaker device terminates in the right ventricle. No significant change since 03/26/18. IMPRESSION: Unremarkable chest x-ray.
[2018-04-08 15:02] LABS: Bilirubin,Urine NEG (Negative); Blood,Urine NEG (Negative); Color,Urine Yellow (Yellow); Protein,Urine <15 mg/dL mg/dL (Negative); Urobilinogen,Urine < 2.0 mg/dL (<2.0)
[2018-04-08] MEDS ORDERED: NACL 0.9% 1000 ML 1,000 ML IV ONE (15:52)
[2018-04-08] MEDS ORDERED: HumuLIN R IV ONE ×3 (15:52→20:42)
[2018-04-08] MEDS ORDERED: K-DUR PO ONE (15:54)
--- NOTE | 2018-04-08 16:12 | Emergency Department Report ---
- General Chief complaint: Weakness Stated complaint: WEAKNESS/PAIN/BLOODY URINE Time Seen by Provider: 04/08/18 15:36 Source: patient, EMS, old records reviewed Mode of arrival: Wheelchair Limitations: No Limitations - History of Present Illness Initial comments: 38-year-old female with a past medical history obesity, CVA with residual left- sided weakness, insulin-dependent diabetes, hypertension, cardiomyopathy with ejection fraction of 55-60%, AICD that was placed for "irregular heart rate", Sleep apnea, gastroparesis, rheumatoid arthritis, and diabetic neuropathy presents to the hospital with multiple complaints. Patient lives in [place] and arrived here to the [place] area on March 18. She has presented to the hospital on 03/26 for chest pain and body aches and then re-presented to the hospital on 03/28 and was admitted for body aches and gastroparesis. Patient had a negative CT abdomen and pelvis IV contrast patient now here complaining of generalized weakness, hyperglycemia, pain to the vaginal area, small amount of blood bowel movement this a.m. Yesterday she states she had a syncopal episode while walking to the bathroom preceded by generalized weakness and generalized body. She has aches and pains all over and bilateral foot pain related to neuropathy. Patient states that her generalized body aches feels different than her typical rheumatoid or neuropathy pain. Patient complains of a slightly productive cough, shortness of breath, and a little anterior chest pain but there is no documented fever. No leg asymmetry/unilateral edema. Patient takes Percocet daily for pain but states it is not helping with the pain since yesterday. Patient states she's been compliant with her insulin. Pt request something stronger than her percocet for pain. Pt's at bedside - Related Data Home Medications Medication Instructions Recorded Confirmed Last Taken Insulin Glargine,Hum.rec.anlog 20 units SQ QHS 03/31/18 03/31/18 2 Days Ago [Lantus] ~03/29/18 NovoLOG Flexpen 20 units SQ TIDAC 03/31/18 03/31/18 2 Days Ago ~03/29/18 Pantoprazole [Protonix TAB] 40 mg PO QDAY 03/31/18 03/31/18 2 Days Ago ~03/29/18 Previous Rx's Medication Instructions Recorded Last Taken Type Ferrous Sulfate [Feosol 325 MG tab] 325 mg PO BID #60 tablet 05/27/17 2 Days Ago Rx ~03/29/18 Oxycodone HCl/Acetaminophen 1 each PO Q6HR PRN #12 tablet 05/27/17 Unknown Rx [Percocet 10/325 mg] Promethazine [Phenergan TAB] 25 mg PO Q6HR PRN #20 tab 02/09/18 2 Days Ago Rx ~03/29/18 oxyCODONE /ACETAMINOPHEN [Percocet 1 - 2 tab PO Q6HR PRN #14 tablet 02/09/18 2 Days Ago Rx 5/325 mg] ~03/29/18 ALBUTEROL Inhaler [ProAir HFA 2 puff IH QID PRN #1 inhalation 03/26/18 2 Days Ago Rx Inhaler] ~03/29/18 Ondansetron [Zofran TAB] 4 mg PO Q8HR PRN #15 tablet 03/26/18 2 Days Ago Rx ~03/29/18 traMADol [Ultram 50 MG tab] 50 mg PO Q6HR PRN #15 tablet 03/26/18 2 Days Ago Rx ~03/29/18 50 MG Metoclopramide HCl [Reglan TAB] 5 mg PO TIDAC PRN #20 tablet 03/31/18 Unknown Rx traMADol [Ultram 50 MG tab] 50 mg PO Q6HR PRN #12 tablet 03/31/18 Unknown Rx Fluconazole [Diflucan TAB] 150 mg PO QDAY #2 tablet 04/08/18 Unknown Rx Allergies Allergy/AdvReac Type Severity Reaction Status Date / Time banana Allergy Unknown Verified 05/04/17 18:00 broccoli Allergy Unknown Verified 05/04/17 18:00 pineapple Allergy Unknown Verified 05/04/17 18:00 carrots Allergy Unknown Uncoded 05/04/17 18:00 ice cream Allergy Unknown Uncoded 05/04/17 18:00 ED Review of Systems ROS: Stated complaint: WEAKNESS/PAIN/BLOODY URINE Other details as noted in HPI Comment: All other systems reviewed and negative ED Past Medical Hx - Past Medical History Hx Hypertension: Yes Hx CVA: Yes (left-sided weakness, uses walker and cane) Hx Congestive Heart Failure: Yes Hx Diabetes: Yes Hx Asthma: No Hx COPD: No Additional medical history: gastroparesis,anemia with h/o transfusions. sleep apnea with C-PAP - Surgical History Hx Internal Defibrillator: Yes (Cardiomyopathy, EF 55-60) Additional Surgical History: Pituitary tumor removal, cryosurgery for cervical CA,. AICD - Social History Smoking Status: Current Every Day Smoker - Medications Home Medications: Home Medications Medication Instructions Recorded Confirmed Last Taken Type Ferrous Sulfate [Feosol 325 MG tab] 325 mg PO BID #60 tablet 05/27/17 03/31/18 2 Days Ago Rx ~03/29/18 Oxycodone HCl/Acetaminophen 1 each PO Q6HR PRN #12 tablet 05/27/17 Unknown Rx [Percocet 10/325 mg] Promethazine [Phenergan TAB] 25 mg PO Q6HR PRN #20 tab 02/09/18 03/31/18 2 Days Ago Rx ~03/29/18 oxyCODONE /ACETAMINOPHEN [Percocet 1 - 2 tab PO Q6HR PRN #14 tablet 02/09/18 2 Days Ago Rx 5/325 mg] ~03/29/18 ALBUTEROL Inhaler [ProAir HFA 2 puff IH QID PRN #1 inhalation 03/26/18 03/31/18 2 Days Ago Rx Inhaler] ~03/29/18 Ondansetron [Zofran TAB] 4 mg PO Q8HR PRN #15 tablet 03/26/18 03/31/18 2 Days Ago Rx ~03/29/18 traMADol [Ultram 50 MG tab] 50 mg PO Q6HR PRN #15 tablet 03/26/18 03/31/18 2 Days Ago Rx ~03/29/18 50 MG Insulin Glargine,Hum.rec.anlog 20 units SQ QHS 03/31/18 03/31/18 2 Days Ago History [Lantus] ~03/29/18 Metoclopramide HCl [Reglan TAB] 5 mg PO TIDAC PRN #20 tablet 03/31/18 Unknown Rx NovoLOG Flexpen 20 units SQ TIDAC 03/31/18 03/31/18 2 Days Ago History ~03/29/18 Pantoprazole [Protonix TAB] 40 mg PO QDAY 03/31/18 03/31/18 2 Days Ago History ~03/29/18 traMADol [Ultram 50 MG tab] 50 mg PO Q6HR PRN #12 tablet 03/31/18 Unknown Rx Fluconazole [Diflucan TAB] 150 mg PO QDAY #2 tablet 04/08/18 Unknown Rx ED Physical Exam - General Limitations: No Limitations - Other Other exam information: General: No limitations, patient is alert in no acute distress Head exam: Atraumatic, normocephalic Eyes exam: Normal appearance ENT: Moist mucous membrane, normal oropharynx Neck exam: Normal inspection, full range of motion, no meningismus nontender Respiratory exam: Clear to auscultation bilateral, no wheezes, rales, crackles Cardiovascular: Normal rate and rhythm, anterior chest wall tenderness reproducible with palpation Abdomen: Soft, nondistended, and nontender, with normal bowel sounds, no rebound, or guarding : Thick white vaginal discharge to out of vagina/labia area. Patient is not able to tolerate speculum exam or digital exam. Swabs are obtained/inserted into the vagina and sent to lab Extremity: Full range of motion normal inspection no deformity, no leg asymmetry Back: Normal Inspection, full range of motion, no tenderness Neurologic: Alert, oriented x3, cranial nerves intact, 4/5 left arm and leg we Psychiatric: normal affect, normal mood Skin: Warm, dry, intact - Assessment Assessment Interval: Baseline - Level of Consciousness 1a. Level of Consciousness: alert - LOC Questions 1b. LOC Questions: answers correctly - LOC Command 1c. LOC Commands: performs tasks correctly - Best Gaze 2. Best Gaze: normal - Visual 3. Visual: no visual loss - Facial Palsy 4. Facial Palsy: normal symmetrical movement - Motor Arm 5b. Motor Arm Right: amputation 5a. Motor Arm Left: drift - Motor Leg 6a. Motor Leg Left: drift 6b. Motor Leg Right: no drift - Limb Ataxia 7. Limb Ataxia: absent - Sensory 8. Sensory: normal - Best Language 9. Best Language: no aphasia - Dysarthria 10. Dysarthria: normal (chronic left sided weakness) - Extinction and Inattention 11. Extinction/Inattention: no abnormality ED Course Vital Signs 04/08/18 04/08/18 04/08/18 13:15 15:45 16:01 Temperature 98.8 F Pulse Rate 85 82 81 Respiratory 20 12 22 Rate Blood Pressure 145/79 117/84 117/84 Blood Pressure [Left] O2 Sat by Pulse 100 100 100 Oximetry 04/08/18 04/08/18 04/08/18 16:31 17:00 17:24 Temperature Pulse Rate 80 79 Respiratory 16 14 18 Rate Blood Pressure 117/84 131/75 Blood Pressure [Left] O2 Sat by Pulse 100 100 100 Oximetry 04/08/18 04/08/18 04/08/18 17:33 17:56 19:01 Temperature Pulse Rate Respiratory 17 14 17 Rate Blood Pressure 131/75 124/97 Blood Pressure [Left] O2 Sat by Pulse 98 100 Oximetry 04/08/18 04/08/18 04/08/18 19:15 19:31 19:45 Temperature Pulse Rate Respiratory 16 16 21 Rate Blood Pressure 124/97 118/60 103/72 Blood Pressure [Left] O2 Sat by Pulse 100 100 100 Oximetry 04/08/18 04/08/18 04/08/18 20:01 20:14 20:15 Temperature Pulse Rate Respiratory 16 20 18 Rate Blood Pressure 109/87 109/87 Blood Pressure [Left] O2 Sat by Pulse 100 100 Oximetry 04/08/18 04/08/18 04/08/18 20:30 20:44 20:45 Temperature Pulse Rate Respiratory 18 20 20 Rate Blood Pressure 127/88 127/88 Blood Pressure [Left] O2 Sat by Pulse 100 100 Oximetry 04/08/18 04/08/18 04/08/18 21:01 21:15 21:31 Temperature Pulse Rate Respiratory 17 17 12 Rate Blood Pressure 87/67 147/90 87/67 Blood Pressure [Left] O2 Sat by Pulse 100 100 Oximetry 04/08/18 04/08/18 21:45 22:00 Temperature Pulse Rate 85 Respiratory 16 20 Rate Blood Pressure 87/67 Blood Pressure 137/89 [Left] O2 Sat by Pulse 98 Oximetry - Reevaluation(s) Reevaluation #1: 04/08/18 18:16 Nurse intervened and told patient to stop drinking Pepsi while we are trying to reduce her glucose level. - Consultations Consultation #1: 04/08/18 18:[address] Reddy regarding guidance given negative wet prep findings and significant vaginal discharge, irritation, and vaginal discomfort. He agrees in a setting of hypoglycemia and white thick discharge for easily recommends Diflucan once 3 days. Outpatient follow-up will be encouraged. ED Medical Decision Making - Lab Data Result diagrams: 04/08/18 13:32 04/08/18 13:32 Lab Results 04/08/18 04/08/18 04/08/18 Range/Units 13:25 13:32 13:32 WBC 9.4 (4.5-11.0) K/mm3 RBC 4.79 (3.65-5.03) M/mm3 Hgb 9.9 L (10.1-14.3) gm/dl Hct 31.8 (30.3-42.9) % MCV 66 L (79-97) fl MCH 21 L (28-32) pg MCHC 31 (30-34) % RDW 18.7 H (13.2-15.2) % Plt Count 401 (140-440) K/mm3 Lymph % (Auto) 18.6 (13.4-35.0) % [place] % (Auto) 5.6 (0.0-7.3) % Eos % (Auto) 1.4 (0.0-4.3) % Baso % (Auto) 0.6 (0.0-1.8) % Lymph # 1.8 (1.2-5.4) K/mm3 [place] # 0.5 (0.0-0.8) K/mm3 Eos # 0.1 (0.0-0.4) K/mm3 Baso # 0.1 (0.0-0.1) K/mm3 Seg Neutrophils % 73.8 H (40.0-70.0) % Seg Neutrophils # 7.0 (1.8-7.7) K/mm3 D-Dimer (0-234) ng/mlDDU VBG pH (7.320-7.420) Sodium 136 L (137-145) mmol/L Potassium 3.4 L (3.6-5.0) mmol/L Chloride 95.2 L (98-107) mmol/L Carbon Dioxide 25 (22-30) mmol/L Anion Gap 19 mmol/L BUN 11 (7-17) mg/dL Creatinine 0.9 (0.7-1.2) mg/dL Estimated GFR > 60 ml/min BUN/Creatinine Ratio 12 % Glucose 434 H (65-100) mg/dL POC Glucose 415 H (70-105) Calcium 9.0 (8.4-10.2) mg/dL Magnesium (1.7-2.3) mg/dL Total Creatine Kinase (30-135) units/L CK-MB (CK-2) (0.0-4.0) ng/mL CK-MB (CK-2) Rel Index (0-4) Troponin T (0.00-0.029) ng/mL Urine Color (Yellow) Urine Turbidity (Clear) Urine pH (5.0-7.0) Ur Specific [place] (1.003-1.030) Urine Protein (Negative) mg/dL Urine Glucose (UA) (Negative) mg/dL Urine Ketones (Negative) mg/dL Urine Blood (Negative) Urine Nitrite (Negative) Urine Bilirubin (Negative) Urine Urobilinogen (<2.0) mg/dL Ur Leukocyte Esterase (Negative) Urine WBC (Auto) (0.0-6.0) /HPF Urine RBC (Auto) (0.0-6.0) /HPF U Epithel Cells (Auto) (0-13.0) /HPF Urine HCG, Qual (Negative) 04/08/18 04/08/18 04/08/18 Range/Units 13:32 13:37 14:37 WBC (4.5-11.0) K/mm3 RBC (3.65-5.03) M/mm3 Hgb (10.1-14.3) gm/dl Hct (30.3-42.9) % MCV (79-97) fl MCH (28-32) pg MCHC (30-34) % RDW (13.2-15.2) % Plt Count (140-440) K/mm3 Lymph % (Auto) (13.4-35.0) % [place] % (Auto) (0.0-7.3) % Eos % (Auto) (0.0-4.3) % Baso % (Auto) (0.0-1.8) % Lymph # (1.2-5.4) K/mm3 [place] # (0.0-0.8) K/mm3 Eos # (0.0-0.4) K/mm3 Baso # (0.0-0.1) K/mm3 Seg Neutrophils % (40.0-70.0) % Seg Neutrophils # (1.8-7.7) K/mm3 D-Dimer (0-234) ng/mlDDU VBG pH 7.417 (7.320-7.420) Sodium (137-145) mmol/L Potassium (3.6-5.0) mmol/L Chloride (98-107) mmol/L Carbon Dioxide (22-30) mmol/L Anion Gap mmol/L BUN (7-17) mg/dL Creatinine (0.7-1.2) mg/dL Estimated GFR ml/min BUN/Creatinine Ratio % Glucose (65-100) mg/dL POC Glucose (70-105) Calcium (8.4-10.2) mg/dL Magnesium (1.7-2.3) mg/dL Total Creatine Kinase (30-135) units/L CK-MB (CK-2) (0.0-4.0) ng/mL CK-MB (CK-2) Rel Index (0-4) Troponin T (0.00-0.029) ng/mL Urine Color Yellow (Yellow) Urine Turbidity Clear (Clear) Urine pH 6.0 (5.0-7.0) Ur Specific [place] 1.021 (1.003-1.030) Urine Protein <15 mg/dl (Negative) mg/dL Urine Glucose (UA) >=500 (Negative) mg/dL Urine Ketones Neg (Negative) mg/dL Urine Blood Neg (Negative) Urine Nitrite Neg (Negative) Urine Bilirubin Neg (Negative) Urine Urobilinogen < 2.0 (<2.0) mg/dL Ur Leukocyte Esterase Tr (Negative) Urine WBC (Auto) 3.0 (0.0-6.0) /HPF Urine RBC (Auto) 5.0 (0.0-6.0) /HPF U Epithel Cells (Auto) 4.0 (0-13.0) /HPF Urine HCG, Qual Negative (Negative) 04/08/18 04/08/18 04/08/18 Range/Units 15:49 15:49 15:51 WBC (4.5-11.0) K/mm3 RBC (3.65-5.03) M/mm3 Hgb (10.1-14.3) gm/dl Hct (30.3-42.9) % MCV (79-97) fl MCH (28-32) pg MCHC (30-34) % RDW (13.2-15.2) % Plt Count (140-440) K/mm3 Lymph % (Auto) (13.4-35.0) % [place] % (Auto) (0.0-7.3) % Eos % (Auto) (0.0-4.3) % Baso % (Auto) (0.0-1.8) % Lymph # (1.2-5.4) K/mm3 [place] # (0.0-0.8) K/mm3 Eos # (0.0-0.4) K/mm3 Baso # (0.0-0.1) K/mm3 Seg Neutrophils % (40.0-70.0) % Seg Neutrophils # (1.8-7.7) K/mm3 D-Dimer 135.00 (0-234) ng/mlDDU VBG pH (7.320-7.420) Sodium (137-145) mmol/L Potassium (3.6-5.0) mmol/L Chloride (98-107) mmol/L Carbon Dioxide (22-30) mmol/L Anion Gap mmol/L BUN (7-17) mg/dL Creatinine (0.7-1.2) mg/dL Estimated GFR ml/min BUN/Creatinine Ratio % Glucose (65-100) mg/dL POC Glucose (70-105) Calcium (8.4-10.2) mg/dL Magnesium 1.80 (1.7-2.3) mg/dL Total Creatine Kinase 178 H (30-135) units/L CK-MB (CK-2) 2.2 (0.0-4.0) ng/mL CK-MB (CK-2) Rel Index 1.2 (0-4) Troponin T < 0.010 (0.00-0.029) ng/mL Urine Color (Yellow) Urine Turbidity (Clear) Urine pH (5.0-7.0) Ur Specific [place] (1.003-1.030) Urine Protein (Negative) mg/dL Urine Glucose (UA) (Negative) mg/dL Urine Ketones (Negative) mg/dL Urine Blood (Negative) Urine Nitrite (Negative) Urine Bilirubin (Negative) Urine Urobilinogen (<2.0) mg/dL Ur Leukocyte Esterase (Negative) Urine WBC (Auto) (0.0-6.0) /HPF Urine RBC (Auto) (0.0-6.0) /HPF U Epithel Cells (Auto) (0-13.0) /HPF Urine HCG, Qual (Negative) 07/30/18 07/30/18 Range/Units 17:00 19:07 WBC (4.5-11.0) K/mm3 RBC (3.65-5.03) M/mm3 Hgb (10.1-14.3) gm/dl Hct (30.3-42.9) % MCV (79-97) fl MCH (28-32) pg MCHC (30-34) % RDW (13.2-15.2) % Plt Count (140-440) K/mm3 Lymph % (Auto) (13.4-35.0) % [place] % (Auto) (0.0-7.3) % Eos % (Auto) (0.0-4.3) % Baso % (Auto) (0.0-1.8) % Lymph # (1.2-5.4) K/mm3 [place] # (0.0-0.8) K/mm3 Eos # (0.0-0.4) K/mm3 Baso # (0.0-0.1) K/mm3 Seg Neutrophils % (40.0-70.0) % Seg Neutrophils # (1.8-7.7) K/mm3 D-Dimer (0-234) ng/mlDDU VBG pH (7.320-7.420) Sodium (137-145) mmol/L Potassium (3.6-5.0) mmol/L Chloride (98-107) mmol/L Carbon Dioxide (22-30) mmol/L Anion Gap mmol/L BUN (7-17) mg/dL Creatinine (0.7-1.2) mg/dL Estimated GFR ml/min BUN/Creatinine Ratio % Glucose (65-100) mg/dL POC Glucose 491 H 396 H (70-105) Calcium (8.4-10.2) mg/dL Magnesium (1.7-2.3) mg/dL Total Creatine Kinase (30-135) units/L CK-MB (CK-2) (0.0-4.0) ng/mL CK-MB (CK-2) Rel Index (0-4) Troponin T (0.00-0.029) ng/mL Urine Color (Yellow) Urine Turbidity (Clear) Urine pH (5.0-7.0) Ur Specific [place] (1.003-1.030) Urine Protein (Negative) mg/dL Urine Glucose (UA) (Negative) mg/dL Urine Ketones (Negative) mg/dL Urine Blood (Negative) Urine Nitrite (Negative) Urine Bilirubin (Negative) Urine Urobilinogen (<2.0) mg/dL Ur Leukocyte Esterase (Negative) Urine WBC (Auto) (0.0-6.0) /HPF Urine RBC (Auto) (0.0-6.0) /HPF U Epithel Cells (Auto) (0-13.0) /HPF Urine HCG, Qual (Negative) - EKG Data -: EKG Interpreted by Mo EKG shows normal: sinus rhythm, axis (qrs -9), QRS complexes (qrsd 101), ST-T waves (no stemi) Rate: normal (89) - EKG Data When compared to previous EKG there are: no significant change - Radiology Data Radiology results: report reviewed ROUTINE CHEST, TWO VIEWS: HISTORY: chest pain, shortness of breath. The trachea, heart, mediastinal contour, lung desai and bony thorax are unremarkable. A single lead pacemaker device terminates in the right ventricle. No significant change since 03/26/18. IMPRESSION: Unremarkable chest x-ray. - Medical Decision Making Patient has uncontrolled glucoses but does not presents with DKA. Patient was noted to be drinking a Pepsi in the waiting room as well as in the ED. Patient received insulin and normal saline in the ED. Pt glucose in 300's after recheck. Therefore additional insulin ordered and pt further instructed not eat anymore or drink soft drinks Patient has vaginal discharge. Unable to perform a complete vaginal examination given significant discomfort Case d/w [employer]. Will be covered with Diflucan and [employer] follow-up will be recommended Generalized pain. Patient has a history of presenting to the ER with either chest pain, gastroparesis, or generalized pain or a combination of these complaints. Pt is chronically on Percocet and requesting multiple doses of dilaudid in the ED. RN noticed pt pressing on BP cuff to cause false elevation in BP reading. Hypokalemia: Po KCL given Pt s/o to Dr Arnold to d/c when glucose at least in the low 200's - Differential Diagnosis DKA, hyperglycemia, UTI, NH, PE, infection Critical Care Time: No Critical care attestation.: If time is entered above; I have spent that time in minutes in the direct care of this critically ill patient, excluding procedure time. ED Disposition Clinical Impression: Uncontrolled diabetes mellitus, Vaginitis, Hypokalemia, Generalized body aches , Chest wall pain Disposition: TO HOME OR SELFCARE Is pt being admited?: No Condition: Stable Instructions: Chest Pain (ED), Hypokalemia (ED), Diabetes Mellitus Type 2 in Adults (ED), Vaginitis (ED) Additional Instructions: Take your medications as prescribed. Is very important that you eat appropriately as per diabetic diet. 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 You were given a first dose of Diflucan today. You may return restart this medication tomorrow. Prescriptions: Fluconazole [Diflucan TAB] 150 mg PO QDAY #2 tablet Referrals: PRIMARY CARE, [Primary Care Provider] - 3-5 Days RAFFAELE REDDY MD [Staff Physician] - 3-5 Days Time of Disposition: 19:54
[2018-04-08 16:23] LABS: Creatine Kinase MB 2.2 ng/mL (0.0-4.0)
[2018-04-08] MEDS ORDERED: ZOFRAN ONE (16:40)
[2018-04-08] MEDS ORDERED: DILAUDID ONE (16:40)
[2018-04-08] MEDS ORDERED: ZOFRAN IV ONE ×2 (16:45→19:53)
[2018-04-08] MEDS ORDERED: DILAUDID IV ONE ×2 (16:45→19:53)
[2018-04-08 16:48] LABS: HCG Qualitative,Urine Negative (Negative)
[2018-04-08] MEDS ORDERED: DIFLUCAN PO ONE (18:56)
[2018-04-08] MEDS ORDERED: TORADOL IV ONE (19:54)
[2018-04-08] MEDS ORDERED: BENADRYL ONE (20:48)
[2018-04-08] MEDS ORDERED: BENADRYL IV ONE (20:52)
[2018-04-08 22:26] VITALS: BP 137/89
== END 2018-04-08 22:29 | disposition home or self-care (01) ==
LOC: ED 12:58
DX: E11.43 Type 2 diabetes mellitus with diabetic autonomic (poly)neuropathy (principal); K31.84 Gastroparesis; E87.6 Hypokalemia; N76.0 Acute vaginitis; M79.1 Myalgia; R07.89 Other chest pain; I50.9 Heart failure, unspecified; D64.9 Anemia, unspecified; F17.200 Nicotine dependence, unspecified, uncomplicated; Z95.810 Presence of automatic (implantable) cardiac defibrillator; Z91.018 Allergy to other foods; Z79.4 Long term (current) use of insulin; Z86.73 Personal history of transient ischemic attack (TIA), and cerebral infarction without residual deficits
CPT/HCPCS: 36415; 71046; 80048; 81001; 81025; 82550; 82553; 82805; 82962; 83735; 84484; 85025; 85379; 87210; 87591; 93005; 93010; 96361; 96374; 96375; 96376; 99285; J1170; J1200; J1885; J2405; J7030; J1815

== ENCOUNTER 2018-06-26 22:03 | Emergency (ER) | payer SELFPAY ==
[2018-06-27] MEDS ORDERED: ZOFRAN ODT PO ONE (01:04)
[2018-06-27] MEDS ORDERED: NACL 0.9% 1000 ML 1,000 ML IV ONE (01:05)
[2018-06-27] MEDS ORDERED: TORADOL IV ONE (01:05)
[2018-06-27] MEDS ORDERED: ZOFRAN IV ONE ×2 (01:05→03:00)
[2018-06-27 01:30] LABS: Hematocrit 40.4 % (30.3-42.9); Hemoglobin 13.4 gm/dl (10.1-14.3); Mean Corpuscular HGB Conc 33 % (30-34); Mean Corpuscular Hemoglobin 28 pg (28-32); Mean Corpuscular Volume 83 fl (79-97); Platelet Count 278 K/mm3 (140-440); Red Blood Count 4.87 M/mm3 (3.65-5.03)
[2018-06-27 01:33] LABS: Red Cell Distribution Width 29.7 % (13.2-15.2)
[2018-06-27] MEDS ORDERED: MORPHINE IV ONE (01:49)
[2018-06-27 01:55] LABS: Albumin 3.9 g/dL (3.9-5); Calcium 8.8 mg/dL (8.4-10.2)
--- NOTE | 2018-06-27 01:56 | Emergency Department Report ---
ED General Adult HPI - General Chief complaint: Pain General Stated complaint: BODY ACHES Time Seen by Provider: 06/27/18 00:59 Source: patient Mode of arrival: Ambulatory Limitations: No Limitations - History of Present Illness Initial comments: This is a 38-year-old female nontoxic, well nourished in appearance, no acute signs of distress presents to the ED with c/o of nausea and vomiting 1 day. Patient describes vomiting as food content. Patient also stated has generalized body aches. Patient denies any abdominal pain, pelvic pain, chest pain, short of breath, fever, chills, headache, stiff neck, numbness or tingling. Patient denies any diarrhea or constipation. Patient denies any recent travels. Patient denies any drug allergies. -: Last night Severity scale (0 -10): 8 Quality: aching Consistency: constant Improves with: none Worsens with: none Associated Symptoms: nausea/vomiting. denies: confusion, chest pain, cough, diaphoresis, fever/chills, headaches, loss of appetite, malaise, rash, seizure, shortness of breath, syncope, weakness Treatments Prior to Arrival: none - Related Data Home Medications Medication Instructions Recorded Confirmed Last Taken Insulin Glargine,Hum.rec.anlog 20 units SQ QHS 03/31/18 03/31/18 2 Days Ago [Lantus] ~03/29/18 NovoLOG Flexpen 20 units SQ TIDAC 03/31/18 03/31/18 2 Days Ago ~03/29/18 Pantoprazole [Protonix TAB] 40 mg PO QDAY 03/31/18 03/31/18 2 Days Ago ~03/29/18 Previous Rx's Medication Instructions Recorded Last Taken Type Ferrous Sulfate [Feosol 325 MG tab] 325 mg PO BID #60 tablet 05/27/17 2 Days Ago Rx ~03/29/18 Oxycodone HCl/Acetaminophen 1 each PO Q6HR PRN #12 tablet 05/27/17 Unknown Rx [Percocet 10/325 mg] Promethazine [Phenergan TAB] 25 mg PO Q6HR PRN #20 tab 02/09/18 2 Days Ago Rx ~03/29/18 oxyCODONE /ACETAMINOPHEN [Percocet 1 - 2 tab PO Q6HR PRN #14 tablet 02/09/18 2 Days Ago Rx 5/325 mg] ~03/29/18 ALBUTEROL Inhaler (OR & NICU) 2 puff IH QID PRN #1 inhalation 03/26/18 2 Days Ago Rx [ProAir HFA Inhaler] ~03/29/18 Ondansetron [Zofran TAB] 4 mg PO Q8HR PRN #15 tablet 03/26/18 2 Days Ago Rx ~03/29/18 traMADol [Ultram 50 MG tab] 50 mg PO Q6HR PRN #15 tablet 03/26/18 2 Days Ago Rx ~03/29/18 50 MG Metoclopramide HCl [Reglan TAB] 5 mg PO TIDAC PRN #20 tablet 03/31/18 Unknown Rx traMADol [Ultram 50 MG tab] 50 mg PO Q6HR PRN #12 tablet 03/31/18 Unknown Rx Fluconazole [Diflucan TAB] 150 mg PO QDAY #2 tablet 04/08/18 Unknown Rx Ibuprofen [Motrin] 600 mg PO Q8H PRN #20 tablet 06/27/18 Unknown Rx Ondansetron [Zofran Odt] 4 mg PO Q8HR PRN #20 tab.rapdis 06/27/18 Unknown Rx Allergies Allergy/AdvReac Type Severity Reaction Status Date / Time banana Allergy Unknown Verified 05/04/17 18:00 broccoli Allergy Unknown Verified 05/04/17 18:00 pineapple Allergy Unknown Verified 05/04/17 18:00 carrots Allergy Unknown Uncoded 05/04/17 18:00 ice cream Allergy Unknown Uncoded 05/04/17 18:00 ED Review of Systems ROS: Stated complaint: BODY ACHES Other details as noted in HPI Constitutional: denies: chills, fever Eyes: denies: eye pain, eye discharge, vision change ENT: denies: ear pain, throat pain Respiratory: denies: cough, shortness of breath, wheezing Cardiovascular: denies: chest pain, palpitations Endocrine: no symptoms reported Gastrointestinal: nausea, vomiting. denies: abdominal pain, diarrhea, constipation Genitourinary: denies: urgency, dysuria, discharge Musculoskeletal: denies: back pain, joint swelling, arthralgia Skin: denies: rash, lesions Neurological: denies: headache, weakness, paresthesias Psychiatric: denies: anxiety, depression Hematological/Lymphatic: denies: easy bleeding, easy bruising ED Past Medical Hx - Past Medical History Previous Medical History?: Yes Hx Hypertension: Yes Hx CVA: Yes (left-sided weakness, uses walker and cane) Hx Congestive Heart Failure: Yes Hx Diabetes: Yes Hx Asthma: No Hx COPD: No Additional medical history: gastroparesis,anemia with h/o transfusions. sleep apnea with C-PAP - Surgical History Past Surgical History?: Yes Hx Internal Defibrillator: Yes (Cardiomyopathy, EF 55-60) Additional Surgical History: Pituitary tumor removal, cryosurgery for cervical CA,. AICD - Social History Smoking Status: Current Every Day Smoker Substance Use Type: None - Medications Home Medications: Home Medications Medication Instructions Recorded Confirmed Last Taken Type Ferrous Sulfate [Feosol 325 MG tab] 325 mg PO BID #60 tablet 05/27/17 03/31/18 2 Days Ago Rx ~03/29/18 Oxycodone HCl/Acetaminophen 1 each PO Q6HR PRN #12 tablet 05/27/17 Unknown Rx [Percocet 10/325 mg] Promethazine [Phenergan TAB] 25 mg PO Q6HR PRN #20 tab 02/09/18 03/31/18 2 Days Ago Rx ~03/29/18 oxyCODONE /ACETAMINOPHEN [Percocet 1 - 2 tab PO Q6HR PRN #14 tablet 02/09/18 2 Days Ago Rx 5/325 mg] ~03/29/18 ALBUTEROL Inhaler (OR & NICU) 2 puff IH QID PRN #1 inhalation 03/26/18 03/31/18 2 Days Ago Rx [ProAir HFA Inhaler] ~03/29/18 Ondansetron [Zofran TAB] 4 mg PO Q8HR PRN #15 tablet 03/26/18 03/31/18 2 Days Ago Rx ~03/29/18 traMADol [Ultram 50 MG tab] 50 mg PO Q6HR PRN #15 tablet 03/26/18 03/31/18 2 Days Ago Rx ~03/29/18 50 MG Insulin Glargine,Hum.rec.anlog 20 units SQ QHS 03/31/18 03/31/18 2 Days Ago History [Lantus] ~03/29/18 Metoclopramide HCl [Reglan TAB] 5 mg PO TIDAC PRN #20 tablet 03/31/18 Unknown Rx NovoLOG Flexpen 20 units SQ TIDAC 03/31/18 03/31/18 2 Days Ago History ~03/29/18 Pantoprazole [Protonix TAB] 40 mg PO QDAY 03/31/18 03/31/18 2 Days Ago History ~03/29/18 traMADol [Ultram 50 MG tab] 50 mg PO Q6HR PRN #12 tablet 03/31/18 Unknown Rx Fluconazole [Diflucan TAB] 150 mg PO QDAY #2 tablet 04/08/18 Unknown Rx Ibuprofen [Motrin] 600 mg PO Q8H PRN #20 tablet 06/27/18 Unknown Rx Ondansetron [Zofran Odt] 4 mg PO Q8HR PRN #20 tab.rapdis 06/27/18 Unknown Rx ED Physical Exam - General Limitations: No Limitations General appearance: alert, in no apparent distress - Head Head exam: Present: atraumatic, normocephalic - Eye Eye exam: Present: normal appearance Pupils: Present: normal accommodation - ENT ENT exam: Present: normal exam, mucous membranes moist - Neck Neck exam: Present: normal inspection, full ROM. Absent: tenderness, meningismus, lymphadenopathy - Respiratory Respiratory exam: Present: normal lung sounds bilaterally. Absent: respiratory distress, wheezes, rales, rhonchi, stridor, chest wall tenderness, accessory muscle use, decreased breath sounds, prolonged expiratory - Cardiovascular Cardiovascular Exam: Present: regular rate, normal rhythm, normal heart sounds. Absent: irregular rhythm, systolic murmur, diastolic murmur, rubs, gallop - GI/Abdominal GI/Abdominal exam: Present: soft, normal bowel sounds. Absent: distended, tenderness, guarding, rebound, rigid, diminished bowel sounds, hyperactive bowel sounds, hypoactive bowel sounds, mass, bruit, pulsatile mass - Rectal Rectal exam: Present: deferred - Extremities Exam Extremities exam: Present: normal inspection, full ROM, normal capillary refill. Absent: tenderness - Back Exam Back exam: Present: normal inspection, full ROM. Absent: tenderness, CVA tenderness (R), CVA tenderness (L), muscle spasm, paraspinal tenderness, vertebral tenderness, rash noted - Neurological Exam Neurological exam: Present: alert, oriented X3, normal gait - Psychiatric Psychiatric exam: Present: normal affect, normal mood - Skin Skin exam: Present: warm, dry, intact, normal color. Absent: rash ED Course Vital Signs 06/26/18 06/27/18 22:40 02:18 Temperature 97.8 F 97.3 F L Pulse Rate 95 H 96 H Respiratory 18 16 Rate Blood Pressure 98/54 Blood Pressure 111/58 [Left] O2 Sat by Pulse 97 97 Oximetry - Reevaluation(s) Reevaluation #1: 06/27/18 01:54 Patient is speaking in full sentences with no signs of distress noted. ED Medical Decision Making - Lab Data Result diagrams: 06/27/18 01:08 06/27/18 01:08 - Medical Decision Making This is a 38-year-old female that presents with nausea and vomiting. Patient is stable and was examined by me. There is no abdominal tenderness. Negative signs of symptoms of appendicitis. Labs obtained. UA obtained. KUB abdomen xray obtained and dictated by the radiologist. Patient is notified of the report with no questions noted by the patient. Vital signs are stable prior to discharge. Patient received Zofran and 1L Normal saline in the ED which patient stated symptoms has resovled and subsided. Patient also received morphine for pain which patient the symptoms as improving subsided. Patient's family member cousin is currently at bedside and stated she will draw the patient home after discharge due to possible drowsiness. A by mouth challenge has been obtained and patient tolerated well with no nausea vomiting. Patient was notified of strict precatuions of appendictis symptoms and to return to the ED if symptoms occurs as soon as possible. Patient was also instructed to Follow-up with a primary care doctor in 3-5 days or if symptoms worsen and continue return to emergency room as soon as possible. At time of discharge, the patient does not seem toxic or ill in appearance. No acute signs of distress noted. Patient agrees to discharge treatment plan of care. No further questions noted by the patient. Critical care attestation.: If time is entered above; I have spent that time in minutes in the direct care of this critically ill patient, excluding procedure time. ED Disposition Clinical Impression: Generalized body aches Nausea & vomiting Qualifiers: Vomiting type: unspecified Vomiting Intractability: non-intractable Qualified Code(s): R11.2 - Nausea with vomiting, unspecified Disposition: -01 TO HOME OR SELFCARE Is pt being admited?: No Does the pt Need Aspirin: No Condition: Stable Instructions: Acute Nausea and Vomiting (ED) Additional Instructions: Follow-up with a primary care doctor in 3-5 days or if symptoms worsen and continue return to emergency room as soon as possible. Prescriptions: Ibuprofen [Motrin] 600 mg PO Q8H PRN #20 tablet PRN Reason: Pain Ondansetron [Zofran Odt] 4 mg PO Q8HR PRN #20 tab.rapdis PRN Reason: Nausea Referrals: PRIMARY CAREMD [Primary Care Provider] - 3-5 Days BUTCH ARGUETA MD [Staff Physician] - 3-5 Days [facility] [Outside] - 3-5 Days [facility] [Outside] - 3-5 Days Forms: Work/School Release Form(ED)
[2018-06-27 02:19] VITALS: BP 111/58
[2018-06-27 02:29] LABS: Anisocytosis 2+; Macrocytosis 1+; Platelet Estimate Consistent w Auto; Total Cells Counted 100
--- NOTE | 2018-06-27 02:36 | XRay Report ---
FINAL REPORT PROCEDURE: XR ABDOMEN 1V AP TECHNIQUE: Abdominal series, including supine and upright AP views. HISTORY: abd pain COMPARISON: No prior studies are available for comparison. FINDINGS: Bowel gas pattern:Nonobstructive . Masses or calcifications:None . Bony structures:No significant abnormality . Pneumoperitoneum:None . Other:No significant findings. There has been a cholecystectomy. IMPRESSION: No acute abnormality.
[2018-06-27] MEDS ORDERED: ZOFRAN ONE (03:16)
[2018-06-28 16:03] LABS: Bacteria,Urine 2+ /HPF (Negative); Bilirubin,Urine NEG (Negative); Blood,Urine NEG (Negative); Color,Urine Yellow (Yellow); Hyaline Casts,Urine 3 /LPF; Mucus,Urine FEW /HPF; Protein,Urine <15 mg/dL mg/dL (Negative); Urobilinogen,Urine < 2.0 mg/dL (<2.0)
== END 2018-06-27 03:25 | disposition home or self-care (01) ==
LOC: ED 22:03
DX: R11.2 Nausea with vomiting, unspecified (principal); M79.18 Myalgia, other site; I11.0 Hypertensive heart disease with heart failure; I50.9 Heart failure, unspecified; E11.9 Type 2 diabetes mellitus without complications; F17.200 Nicotine dependence, unspecified, uncomplicated; Z86.73 Personal history of transient ischemic attack (TIA), and cerebral infarction without residual deficits; Z91.018 Allergy to other foods; Z79.4 Long term (current) use of insulin
CPT/HCPCS: 36415; 74018; 80053; 81001; 83690; 84703; 85007; 85025; 96361; 96374; 96375; 96376; 99284; J1885; J2270; J2405; J7030

== ENCOUNTER 2018-06-28 14:04 | Emergency (ER) | payer SELFPAY ==
[2018-06-28 14:43] VITALS: BP 112/60
== END 2018-06-28 15:00 | disposition left against medical advice (07) ==
LOC: ED 14:04
DX: R11.2 Nausea with vomiting, unspecified (principal); Z53.21 Procedure and treatment not carried out due to patient leaving prior to being seen by health care provider

== ENCOUNTER 2018-10-28 08:51 | Emergency (ER) | payer MEDICAID, OTHER ==
[2018-10-28] MEDS ORDERED: ASPIRIN PO ONE (09:15)
[2018-10-28 09:37] LABS: Basophils # (Auto) 0.1 K/mm3 (0.0-0.1); Basophils % (Auto) 1.2 % (0.0-1.8); Eosinophils # (Auto) 0.3 K/mm3 (0.0-0.4); Eosinophils % (Auto) 4.3 % (0.0-4.3); Hematocrit 39.5 % (30.3-42.9); Hemoglobin 13.7 gm/dl (10.1-14.3); Lymphocytes % (Auto) 26.6 % (13.4-35.0); Mean Corpuscular HGB Conc 35 % (30-34); Mean Corpuscular Volume 89 fl (79-97); Monocytes # (Auto) 0.4 K/mm3 (0.0-0.8); Monocytes % (Auto) 5.4 % (0.0-7.3); Platelet Count 213 K/mm3 (140-440); Red Blood Count 4.42 M/mm3 (3.65-5.03); Red Cell Distribution Width 14.4 % (13.2-15.2)
[2018-10-28 10:06] LABS: Alanine Aminotransferase 9 units/L (7-56); Albumin 3.9 g/dL (3.9-5); BUN/Creatinine Ratio 14; Blood Urea Nitrogen 11 mg/dL (7-17); Calcium 9.2 mg/dL (8.4-10.2); Hemolysis Index 10
[2018-10-28] MEDS ORDERED: ZOFRAN ONE (10:07)
[2018-10-28] MEDS ORDERED: SUBLIMAZE IV ONE (10:28)
[2018-10-28] MEDS ORDERED: ZOFRAN IV ONE (10:28)
[2018-10-28] MEDS ORDERED: NITRO-BID 2% TP ONE (10:29)
--- NOTE | 2018-10-28 10:33 | Emergency Department Report ---
HPI - General Chief Complaint: Chest Pain Time Seen by Provider: 10/28/18 10:16 - HPI HPI: Room 24 The patient is a 38-year-old female presents with the chief complaint of chest pain and abdominal pain. The patient states she awakened this morning at 05:30 and noticed chest pain and abdominal pain that was burning in nature. Patient developed diffuse body aches and then pleurisy. Patient states there is shortness of breath with her chest pain as well as nausea/vomiting and diaphoresis. The patient gets her pain score 10/10. The patient states some of her symptoms consistent with her gastroparesis but not 100% Location: [See above] Duration: Onset this morning Quality: Burning Severity: 06/19 Modifying factors: [see above] Context: [see above] Mode of transportation: [not driving] ED Past Medical Hx - Past Medical History Previous Medical History?: Yes Hx Hypertension: Yes Hx CVA: Yes (left-sided weakness, uses walker and cane) Hx Congestive Heart Failure: Yes Hx Diabetes: Yes Hx GERD: Yes Additional medical history: gastroparesis,anemia with h/o transfusions. sleep apnea with C-PAP - Surgical History Past Surgical History?: Yes Hx Internal Defibrillator: Yes (Cardiomyopathy, EF 55-60) Hx Cholecystectomy: Yes Additional Surgical History: partial Pituitary tumor removal, cryosurgery for cervical CA,. AICD - Family History Family history: no significant - Social History Smoking Status: Current Every Day Smoker (1/2 pack per day) Substance Use Type: None (denies illicit drug use) - Medications Home Medications: Home Medications Medication Instructions Recorded Confirmed Last Taken Type Ferrous Sulfate [Feosol 325 MG tab] 325 mg PO BID #60 tablet 05/27/17 08/19/18 2 Days Ago Rx ~03/29/18 oxyCODONE /ACETAMINOPHEN [Percocet 1 - 2 tab PO Q6HR PRN #14 tablet 02/09/18 08/19/18 2 Days Ago Rx 5/325 mg] ~03/29/18 ALBUTEROL Inhaler (OR & NICU) 2 puff IH QID PRN #1 inhalation 03/26/18 08/19/18 2 Days Ago Rx [ProAir HFA Inhaler] ~03/29/18 NovoLOG Flexpen See Protocol SQ TIDAC 03/31/18 08/19/18 2 Days Ago History ~03/29/18 Metoclopramide [Reglan TAB] 10 mg PO ACHS PRN #30 tablet 08/21/18 Unknown Rx ED Review of Systems ROS: Stated complaint: ABD PAIN Other details as noted in HPI Constitutional: diaphoresis Eyes: denies: eye pain ENT: denies: throat pain Respiratory: shortness of breath Cardiovascular: chest pain Endocrine: no symptoms reported Gastrointestinal: abdominal pain, nausea, vomiting Genitourinary: denies: dysuria Musculoskeletal: denies: back pain Neurological: denies: headache Physical Exam - Physical Exam Vital Signs: Vital Signs 10/28/18 09:00 Temperature 97.9 F Pulse Rate 84 Respiratory 16 Rate Blood Pressure 118/81 O2 Sat by Pulse 100 Oximetry Physical Exam: GENERAL: The patient is well-developed well-nourished female lying on stretcher appearing to be in moderate discomfort. [] HEENT: Normocephalic. Atraumatic. Extraocular motions are intact. Patient has moist mucous membranes. NECK: Supple. Trachea midline CHEST/LUNGS: Clear to auscultation. There is no respiratory distress noted. HEART/CARDIOVASCULAR: Regular. There is no tachycardia. There is no gallop rub or murmur. ABDOMEN: Abdomen is soft, nontender. Patient has normal bowel sounds. There is no abdominal distention. SKIN: There is no rash. There is no edema. There is no diaphoresis. NEURO: The patient is awake, alert, and oriented. The patient is cooperative. The patient has normal speech MUSCULOSKELETAL: There is no evidence of acute injury. ED Course Vital Signs 10/28/18 09:00 Temperature 97.9 F Pulse Rate 84 Respiratory 16 Rate Blood Pressure 118/81 O2 Sat by Pulse 100 Oximetry - EJ/Peripheral Line Neck L Time Out Performed: No Indications: nurses unable to establis Skin Cleansed in Sterile Fashion: Yes Size: 20 Dressing Placed: Tegaderm Patient Tolerated Procedure: well ED Medical Decision Making - Lab Data Result diagrams: 10/28/18 09:25 10/28/18 09:25 Laboratory Tests 10/28/18 10/28/18 10/28/18 09:25 09:25 09:25 WBC 7.5 RBC 4.42 Hgb 13.7 Hct 39.5 MCV 89 MCH 31 MCHC 35 H RDW 14.4 Plt Count 213 Lymph % (Auto) 26.6 [place] % (Auto) 5.4 Eos % (Auto) 4.3 Baso % (Auto) 1.2 Lymph # 2.0 [place] # 0.4 Eos # 0.3 Baso # 0.1 Seg Neutrophils % 62.5 Seg Neutrophils # 4.7 D-Dimer Sodium 141 Potassium 4.0 Chloride 102.2 Carbon Dioxide 25 Anion Gap 18 BUN 11 Creatinine 0.8 Estimated GFR > 60 BUN/Creatinine Ratio 14 Glucose 166 H Calcium 9.2 Total Bilirubin 0.30 AST 11 ALT 9 Alkaline Phosphatase 78 Troponin T < 0.010 Total Protein 6.9 Albumin 3.9 Albumin/Globulin Ratio 1.3 HCG, Qual Negative 10/28/18 10:42 WBC RBC Hgb Hct MCV MCH MCHC RDW Plt Count Lymph % (Auto) [place] % (Auto) Eos % (Auto) Baso % (Auto) Lymph # [place] # Eos # Baso # Seg Neutrophils % Seg Neutrophils # D-Dimer < 135.00 Sodium Potassium Chloride Carbon Dioxide Anion Gap BUN Creatinine Estimated GFR BUN/Creatinine Ratio Glucose Calcium Total Bilirubin AST ALT Alkaline Phosphatase Troponin T Total Protein Albumin Albumin/Globulin Ratio HCG, Qual - EKG Data -: EKG Interpreted by Me EKG shows normal: sinus rhythm Rate: normal - EKG Data When compared to previous EKG there are: changes noted Interpretation: nonspecific ST-T wave evelina (new T-wave inversions in leads 3 and aVF. Old T-wave inversions in leads V5, V6) - Radiology Data Radiology results: image reviewed (chest x-ray) interpreted by me: Chest x-ray-no focal infiltrates, no pneumothorax - Differential Diagnosis ACS, pericarditis, gastroparesis, PE Critical care attestation.: If time is entered above; I have spent that time in minutes in the direct care of this critically ill patient, excluding procedure time. ED Disposition Clinical Impression: Chest pain, Intractable abdominal pain, Nausea & vomiting Disposition: OP ADMIT IP TO THIS HOSP Is pt being admited?: Yes Does the pt Need Aspirin: Yes Condition: Stable Instructions: Chest Pain (ED) Referrals: NUSRAT SILVA MD [Primary Care Provider] - 3-5 Days Time of Disposition: 11:38 (hospitalist paged (Dr Moroe))
[2018-10-28] MEDS ORDERED: DILAUDID IV ONE ×4 (11:33→14:46)
[2018-10-28] MEDS ORDERED: REGLAN IV ONE (11:34)
--- NOTE | 2018-10-28 11:57 | XRay Report ---
AP CHEST : 10/28/18 11:20 CLINICAL: Chest pain. COMPARISON:08/19/18 FINDINGS: Normal heart with an AICD lead in heart.Pulmonary vessels are normal. The lungs are slightly underexpanded but clear. The bones and soft tissues are unremarkable.No tubes or lines. IMPRESSION: No acute cardiopulmonary process.
[2018-10-28] MEDS ORDERED: PHENERGAN PR ONE (12:52)
[2018-10-28 16:10] VITALS: BP 155/98
== END 2018-10-28 16:10 | disposition admitted as inpatient to this hospital (09) ==
LOC: ED 08:51
DX: R07.89 Other chest pain (principal); R11.2 Nausea with vomiting, unspecified; R10.9 Unspecified abdominal pain; I11.0 Hypertensive heart disease with heart failure; E11.9 Type 2 diabetes mellitus without complications; K21.9 Gastro-esophageal reflux disease without esophagitis; G47.30 Sleep apnea, unspecified; F17.200 Nicotine dependence, unspecified, uncomplicated; Z86.2 Personal history of diseases of the blood and blood-forming organs and certain disorders involving the immune mechanism; Z91.018 Allergy to other foods
CPT/HCPCS: 36415; 36569; 71045; 80053; 84484; 84703; 85025; 85379; 93005; 93010; 96374; 96375; 96376; 99285; J1170; J2405; J2765; J3010

== ENCOUNTER 2018-11-28 19:39 | Emergency (ER) | payer MEDICAID, OTHER ==
--- NOTE | 2018-11-28 20:07 | Emergency Department Report ---
Blank Doc - Documentation Documentation: This is a 38-year-old female that presents with nausea vomiting with chest pain and abdominal pain. Stated has some SOB. This initial assessment/diagnostic orders/clinical plan/treatment(s) is/are subject to change based on patient's health status, clinical progression and re- assessment by fellow clinical providers in the ED. Further treatment and workup at subsequent clinical providers discretion. Patient/guardians urged not to elope from the ED as their condition may be serious if not clinically assessed and managed. Initial orders include: 1- Patient sent to MAIN ED for further evaluation and treatment 2- labs 3- EKG 4- CXR
[2018-11-28] MEDS ORDERED: ZOFRAN ODT PO ONE (20:44)
[2018-11-28 20:53] LABS: Basophils # (Auto) 0.1 K/mm3 (0.0-0.1); Basophils % (Auto) 1.2 % (0.0-1.8); Eosinophils # (Auto) 0.3 K/mm3 (0.0-0.4); Eosinophils % (Auto) 3.8 % (0.0-4.3); Hematocrit 39.6 % (30.3-42.9); Hemoglobin 13.7 gm/dl (10.1-14.3); Lymphocytes # (Auto) 2.5 K/mm3 (1.2-5.4); Lymphocytes % (Auto) 28.2 % (13.4-35.0); Mean Corpuscular HGB Conc 35 % (30-34); Mean Corpuscular Volume 91 fl (79-97); Monocytes # (Auto) 0.4 K/mm3 (0.0-0.8); Monocytes % (Auto) 4.6 % (0.0-7.3); Platelet Count 201 K/mm3 (140-440); Red Blood Count 4.35 M/mm3 (3.65-5.03)
[2018-11-28 21:04] LABS: INR 0.8 (0.87-1.13)
[2018-11-28 21:05] LABS: Partial Thromboplastin Time 29.6 Sec. (24.2-36.6)
[2018-11-28 21:21] LABS: Alanine Aminotransferase 13 units/L (7-56); Albumin 4.2 g/dL (3.9-5); BUN/Creatinine Ratio 13; Blood Urea Nitrogen 10 mg/dL (7-17); Calcium 9.2 mg/dL (8.4-10.2); Hemolysis Index 13
--- NOTE | 2018-11-28 21:55 | XRay Report ---
PROCEDURE: XR CHEST ROUTINE 2V TECHNIQUE: PA and lateral chest HISTORY: Chest Pain COMPARISONS: October 28 FINDINGS: Cardiac silhouette at the upper limits of normal. There is a permanent pacemaker in place. Pulmonary vasculature is within normal limits. No airspace consolidation or pleural effusions. Decreased inspiration. IMPRESSION: Stable radiograph with no evidence of acute disease. Decreased inspiration.. This document is electronically signed by Trenton Merida MD., November 28 2018 09:52:44 PM ET
[2018-11-28] MEDS ORDERED: REGLAN PO ONE (22:10)
[2018-11-28] MEDS ORDERED: CARAFATE PO ONE (22:10)
[2018-11-28] MEDS ORDERED: PEPCID PO ONE (22:10)
--- NOTE | 2018-11-28 22:11 | Emergency Department Report ---
ED General Adult HPI - General Chief complaint: Chest Pain Stated complaint: CHEST PAIN ABD PAIN VOMITTING Time Seen by Provider: 11/28/18 20:06 Source: patient, RN notes reviewed, old records reviewed Mode of arrival: Ambulatory Limitations: Physical Limitation - History of Present Illness Initial comments: This is a 38-year-old female whom I have evaluated in the past. Past medical history includes diabetes, obesity, GERD, gastroparesis, hypertensi on, AICD, sleep apnea, stroke with residual left-sided deficits, chronic pain syndrome with drug seeking behavior, and diabetic gastroparesis. Patient presents to the emergency room today with a complaint of chest pain, epigastric pain, nausea and vomiting. Symptoms present for 2 hours. The chest pain is central, and does not radiate to the back, arms and neck. She has accompanying epigastric abdominal pain, nausea and vomiting, but denies new or different shortness of breath, and diaphoresis. She denies posterior leg pain, posterior leg swelling which is new or different, denies , denies oral contraceptive use. Patient admitted to the medical service in 2017, and had a negative nuclear stress test. Patient was admitted to the internal medicine service last month for similar symptoms, and was seen by staff to be eating a meal, even though she claimed to have been vomiting and not able to keep anything down. In addition, she has a documented chronic pain syndrome, and in the past has been noted to request IV Benadryl, and IV hydromorphone. There is a strong suspicion for drug-seeking behavior in the past. -: Gradual Location: chest, abdomen Radiation: non-radiation Severity scale (0 -10): 10 Quality: burning, aching Consistency: constant Improves with: none Worsens with: none Associated Symptoms: chest pain, loss of appetite, malaise, nausea/vomiting - Related Data Home Medications Medication Instructions Recorded Confirmed Last Taken FLUoxetine [PROzac] 20 mg PO QDAY 10/28/18 10/28/18 Unknown Furosemide [Lasix] 20 mg PO QDAY 10/28/18 10/28/18 Unknown Gabapentin [Neurontin] 400 mg PO TID 10/28/18 10/28/18 Unknown Insulin Aspart [NovoLOG Flexpen] 17 units SUB-Q TIDAC 10/28/18 10/28/18 Unknown Insulin Detemir [Levemir Flextouch] 20 units SUB-Q QHS 10/28/18 10/28/18 Unknown Lisinopril [Prinivil] 5 mg PO QDAY 10/28/18 10/28/18 Unknown Metoclopramide HCl [Reglan TAB] 5 mg PO TID 10/28/18 10/28/18 Unknown Metoprolol Succinate [Toprol Xl] 25 mg PO QDAY 10/28/18 10/28/18 Unknown Montelukast [Singulair] 10 mg PO QPM 10/28/18 10/28/18 Unknown Oxycodone HCl/Acetaminophen 1 each PO Q6HR PRN 10/28/18 10/28/18 Unknown [Percocet 10/325 mg] Spironolactone [Aldactone] 50 mg PO QDAY 10/28/18 10/28/18 Unknown Trazodone HCl 150 mg PO HS 10/28/18 10/28/18 Unknown Zaleplon 5 mg PO HS 10/28/18 10/28/18 Unknown diazePAM [Diazepam] 2 mg PO QDAY 10/28/18 10/28/18 Unknown Previous Rx's Medication Instructions Recorded Last Taken Type Ondansetron [Zofran Odt] 4 mg PO Q8HR #20 tab.rapdis 10/28/18 Unknown Rx Oxycodone HCl/Acetaminophen 1 each PO Q6HR PRN #12 tablet 10/28/18 Unknown Rx [Percocet 7.5/325 mg] Promethazine HCl [Phenergan SUPPOS] 25 mg RC Q6H #12 supp.rect 10/28/18 Unknown Rx Acetaminophen [Tylenol Arthritis] 650 mg PO Q6HR PRN #30 tablet.er 11/29/18 Unknown Rx Dicyclomine [Bentyl] 10 mg PO QID PRN #20 capsule 11/29/18 Unknown Rx Famotidine [Pepcid] 20 mg PO BID #60 tablet 11/29/18 Unknown Rx Ondansetron [Zofran Odt] 4 mg PO Q8HR PRN #20 tab.rapdis 11/29/18 Unknown Rx Promethazine [Phenergan SUPPOS] 50 mg MS Q6H PRN #15 supp.rect 11/29/18 Unknown Rx Allergies Allergy/AdvReac Type Severity Reaction Status Date / Time banana Allergy Unknown Verified 06/28/18 14:43 broccoli Allergy Unknown Verified 06/28/18 14:43 pineapple Allergy Unknown Verified 06/28/18 14:43 carrots Allergy Unknown Uncoded 05/04/17 18:00 ice cream Allergy Unknown Uncoded 05/04/17 18:00 ED Review of Systems ROS: Stated complaint: CHEST PAIN ABD PAIN VOMITTING Other details as noted in HPI Constitutional: denies: fever Eyes: denies: vision change ENT: denies: epistaxis Respiratory: denies: cough Cardiovascular: chest pain Gastrointestinal: abdominal pain, nausea, vomiting Genitourinary: denies: dysuria Musculoskeletal: arthralgia Skin: denies: lesions Neurological: weakness Psychiatric: denies: auditory hallucinations, visual hallucinations, homicidal thoughts, suicidal thoughts ED Past Medical Hx - Past Medical History Previous Medical History?: Yes Hx Hypertension: Yes Hx CVA: Yes (left-sided weakness, uses walker and cane) Hx Congestive Heart Failure: Yes Hx Diabetes: Yes Hx GERD: Yes Hx Asthma: No Hx COPD: No Additional medical history: gastroparesis,anemia with h/o transfusions. sleep apnea with C-PAP - Surgical History Past Surgical History?: Yes Hx Internal Defibrillator: Yes (Cardiomyopathy, EF 55-60) Hx Cholecystectomy: Yes Additional Surgical History: partial Pituitary tumor removal, cryosurgery for cervical CA,. AICD - Social History Smoking Status: Current Every Day Smoker Substance Use Type: None - Medications Home Medications: Home Medications Medication Instructions Recorded Confirmed Last Taken Type FLUoxetine [PROzac] 20 mg PO QDAY 10/28/18 10/28/18 Unknown History Furosemide [Lasix] 20 mg PO QDAY 10/28/18 10/28/18 Unknown History Gabapentin [Neurontin] 400 mg PO TID 10/28/18 10/28/18 Unknown History Insulin Aspart [NovoLOG Flexpen] 17 units SUB-Q TIDAC 10/28/18 10/28/18 Unknown History Insulin Detemir [Levemir Flextouch] 20 units SUB-Q QHS 10/28/18 10/28/18 Unknown History Lisinopril [Prinivil] 5 mg PO QDAY 10/28/18 10/28/18 Unknown History Metoclopramide HCl [Reglan TAB] 5 mg PO TID 10/28/18 10/28/18 Unknown History Metoprolol Succinate [Toprol Xl] 25 mg PO QDAY 10/28/18 10/28/18 Unknown History Montelukast [Singulair] 10 mg PO QPM 10/28/18 10/28/18 Unknown History Ondansetron [Zofran Odt] 4 mg PO Q8HR #20 tab.rapdis 10/28/18 Unknown Rx Oxycodone HCl/Acetaminophen 1 each PO Q6HR PRN 10/28/18 10/28/18 Unknown History [Percocet 10/325 mg] Oxycodone HCl/Acetaminophen 1 each PO Q6HR PRN #12 tablet 10/28/18 Unknown Rx [Percocet 7.5/325 mg] Promethazine HCl [Phenergan SUPPOS] 25 mg RC Q6H #12 supp.rect 10/28/18 Unknown Rx Spironolactone [Aldactone] 50 mg PO QDAY 10/28/18 10/28/18 Unknown History Trazodone HCl 150 mg PO HS 10/28/18 10/28/18 Unknown History Zaleplon 5 mg PO HS 10/28/18 10/28/18 Unknown History diazePAM [Diazepam] 2 mg PO QDAY 10/28/18 10/28/18 Unknown History Acetaminophen [Tylenol Arthritis] 650 mg PO Q6HR PRN #30 tablet.er 11/29/18 Unknown Rx Dicyclomine [Bentyl] 10 mg PO QID PRN #20 capsule 11/29/18 Unknown Rx Famotidine [Pepcid] 20 mg PO BID #60 tablet 11/29/18 Unknown Rx Ondansetron [Zofran Odt] 4 mg PO Q8HR PRN #20 tab.rapdis 11/29/18 Unknown Rx Promethazine [Phenergan SUPPOS] 50 mg MS Q6H PRN #15 supp.rect 11/29/18 Unknown Rx ED Physical Exam - General Limitations: No Limitations General appearance: alert, anxious, obese - Head Head exam: Present: atraumatic, normocephalic - Eye Eye exam: Present: normal appearance, EOMI - ENT ENT exam: Present: normal exam, normal orophraynx, mucous membranes moist, normal external ear exam - Neck Neck exam: Present: normal inspection, full ROM. Absent: tenderness, meningismus - Respiratory Respiratory exam: Present: normal lung sounds bilaterally, chest wall tenderness. Absent: respiratory distress - Cardiovascular Cardiovascular Exam: Present: regular rate, normal rhythm, normal heart sounds. Absent: bradycardia, tachycardia, irregular rhythm, systolic murmur, diastolic murmur, rubs, gallop - GI/Abdominal GI/Abdominal exam: Present: soft, tenderness (there is minimal epigastric tend erness. There is no rebound, guarding or peritoneal signs. There is a negative Head sign. There is negative rubs exam.). Absent: distended, guarding, rebound, rigid, pulsatile mass - Extremities Exam Extremities exam: Present: normal inspection, full ROM, other (2+ pulses noted in the bilateral upper, lower extremities. Compartments soft. No long bony tenderness. The pelvis is stable.). Absent: pedal edema, joint swelling, calf tenderness - Back Exam Back exam: Present: normal inspection, full ROM. Absent: tenderness, CVA tenderness (R), paraspinal tenderness, vertebral tenderness - Neurological Exam Neurological exam: Present: alert, other (there is no facial droop. The tongue is midline. Extraocular movements are intact bilaterally. Moving 4 extremities spontaneously.) - Psychiatric Psychiatric exam: Present: flat affect - Skin Skin exam: Present: warm, dry, intact, normal color. 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 11/21/2018 1 11/15/2018 OXYCODONE-ACETAMINOPHEN 10-325 120.0 30 ER RONALD [id number] [place] ([id number]) 0 Medicaid [place] 11/20/2018 1 11/15/2018 ZALEPLON 5 MG CAPSULE 30.0 30 ER RONALD [id number] [facility] ([id number]) 0 [place] 11/04/2018 1 11/04/2018 OXYCODONE HCL 15 MG TABLET 12.0 3 LI BOJ [id number] [facility] ([id number]) 0 [place] 10/20/2018 1 10/18/2018 OXYCODONE-ACETAMINOPHEN 10-325 120.0 30 ER RONALD [id number] [facility] ([id number]) 0 [place] 10/18/2018 1 10/18/2018 ZALEPLON 5 MG CAPSULE 30.0 30 ER RONALD [id number] [facility] ([id number]) 0 [place] 10/12/2018 1 09/18/2018 DIAZEPAM 2 MG TABLET 30.0 30 ER RONALD [id number] [facility] ([id number]) 0 [place] 09/21/2018 1 09/18/2018 OXYCODONE-ACETAMINOPHEN 10-325 120.0 30 ER RONALD [id number] [facility] ([id number]) 0 [place] 09/04/2018 1 08/19/2018 DIAZEPAM 2 MG TABLET 30.0 30 ER RONALD [id number] [facility] ([id number]) 0 [place] 08/23/2018 1 08/19/2018 OXYCODONE-ACETAMINOPHEN 10-325 120.0 30 ER RONALD [id number] [facility] ([id number]) 0 [place] Name ID Gender Address KARISHMA PAIZ 1980 [id number] [facility] [address] [facility] [id number] Criteria First Name akrishma Last Name ramiro SUNB 1980 Reevaluation #2: 11/28/18 22:35 Differential diagnosis, including but not limited to: GERD, gastritis, hiatal hernia, gastroparesis, acute coronary syndrome, pneumonia, abdominal wall strain, costochondritis Assessment and plan: 38-year-old female, not tachycardic, not hypoxic, does not report pulmonary embolus or DVT risk factors, low risk by well's criteria, perc negative, has had multiple negative d-dimer's in the past, as recently as last month, where she was found to have a negative d-dimer on 10/28/2018, with typical recurrent complaint of abdominal pain, epigastric pain, chest pain, nausea and vomiting. Had a negative nuclear stress test in 2017, troponin negative 1, EKG abnormal, but unchanged 2, and appears unchanged from prior EKG from 10/28/2018. I find the patient to be low risk by the heart score, and at low risk for major adverse cardiac event given her history and physical. Patient was looked up on the [place] prescription monitoring program database, and her pleuritic prescriptions are reviewed and appreciated. On review of old medical records, the patient typically lives in [place], and visits the [place] area. I have a very high suspicion that the patient may be narcotic dependent. However, she is not homicidal or suicidal, she denies hallucinations, she denies access to guns or firearms, and she does not meet 1013 criteria. I have informed the patient that her symptoms we treated with nonnarcotic medication, including Zofran, Reglan, Haldol if necessary for intractable nausea and vomiting, and proton pump inhibitor, as well as offering the patient Carafate, and Bentyl. The patient refused some of the aforementioned oral medications, but she is requesting IV medications. She vomited 1 in the emergency room, and therefore we will give her IV Pepcid, and IV Reglan. Reevaluation #3: 11/29/18 00:33 Troponin negative 2. EKG unchanged 2. No active vomiting as far noted. Patient will be discharged with oral and rectal as needed and diabetic medication, nonnarcotic pain medication, instructions to follow up with outpatient primary care, gastroenterology. Reevaluation #4: 11/29/18 00:44 Change in plans. Patient vomited again. We will give IV Reglan. Reevaluation #5: 11/29/18 02:06 No active vomiting at this time. Patient sleeping. We will discharge. ED Medical Decision Making - Lab Data Result diagrams: 11/28/18 20:19 11/28/18 20:19 Vital Signs 11/28/18 11/28/18 11/28/18 20:00 20:06 22:22 Temperature 98.4 F 98.3 F Pulse Rate 89 88 82 Respiratory 16 20 22 Rate Blood Pressure 136/109 136/109 Blood Pressure 164/106 [Left] O2 Sat by Pulse 100 100 100 Oximetry Lab Results 11/28/18 11/28/18 11/28/18 Range/Units 20:19 20:19 20:19 WBC 8.8 (4.5-11.0) K/mm3 RBC 4.35 (3.65-5.03) M/mm3 Hgb 13.7 (10.1-14.3) gm/dl Hct 39.6 (30.3-42.9) % MCV 91 (79-97) fl MCH 31 (28-32) pg MCHC 35 H (30-34) % RDW 14.0 (13.2-15.2) % Plt Count 201 (140-440) K/mm3 Lymph % (Auto) 28.2 (13.4-35.0) % Amite % (Auto) 4.6 (0.0-7.3) % Eos % (Auto) 3.8 (0.0-4.3) % Baso % (Auto) 1.2 (0.0-1.8) % Lymph # 2.5 (1.2-5.4) K/mm3 Amite # 0.4 (0.0-0.8) K/mm3 Eos # 0.3 (0.0-0.4) K/mm3 Baso # 0.1 (0.0-0.1) K/mm3 Seg Neutrophils % 62.2 (40.0-70.0) % Seg Neutrophils # 5.5 (1.8-7.7) K/mm3 PT 11.6 L (12.2-14.9) Sec. INR 0.80 L (0.87-1.13) APTT 29.6 (24.2-36.6) Sec. Sodium 142 (137-145) mmol/L Potassium 3.8 (3.6-5.0) mmol/L Chloride 101.8 (98-107) mmol/L Carbon Dioxide 25 (22-30) mmol/L Anion Gap 19 mmol/L BUN 10 (7-17) mg/dL Creatinine 0.8 (0.7-1.2) mg/dL Estimated GFR > 60 ml/min BUN/Creatinine Ratio 13 % Glucose 131 H (65-100) mg/dL Calcium 9.2 (8.4-10.2) mg/dL Total Bilirubin < 0.20 (0.1-1.2) mg/dL AST 17 (5-40) units/L ALT 13 (7-56) units/L Alkaline Phosphatase 77 (35-129) units/L Troponin T < 0.010 (0.00-0.029) ng/mL Total Protein 7.1 (6.3-8.2) g/dL Albumin 4.2 (3.9-5) g/dL Albumin/Globulin Ratio 1.4 % HCG, Qual (Negative) 11/28/18 Range/Units 20:19 WBC (4.5-11.0) K/mm3 RBC (3.65-5.03) M/mm3 Hgb (10.1-14.3) gm/dl Hct (30.3-42.9) % MCV (79-97) fl MCH (28-32) pg MCHC (30-34) % RDW (13.2-15.2) % Plt Count (140-440) K/mm3 Lymph % (Auto) (13.4-35.0) % Amite % (Auto) (0.0-7.3) % Eos % (Auto) (0.0-4.3) % Baso % (Auto) (0.0-1.8) % Lymph # (1.2-5.4) K/mm3 Amite # (0.0-0.8) K/mm3 Eos # (0.0-0.4) K/mm3 Baso # (0.0-0.1) K/mm3 Seg Neutrophils % (40.0-70.0) % Seg Neutrophils # (1.8-7.7) K/mm3 PT (12.2-14.9) Sec. INR (0.87-1.13) APTT (24.2-36.6) Sec. Sodium (137-145) mmol/L Potassium (3.6-5.0) mmol/L Chloride (98-107) mmol/L Carbon Dioxide (22-30) mmol/L Anion Gap mmol/L BUN (7-17) mg/dL Creatinine (0.7-1.2) mg/dL Estimated GFR ml/min BUN/Creatinine Ratio % Glucose (65-100) mg/dL Calcium (8.4-10.2) mg/dL Total Bilirubin (0.1-1.2) mg/dL AST (5-40) units/L ALT (7-56) units/L Alkaline Phosphatase (35-129) units/L Troponin T (0.00-0.029) ng/mL Total Protein (6.3-8.2) g/dL Albumin (3.9-5) g/dL Albumin/Globulin Ratio % HCG, Qual Negative (Negative) - EKG Data -: EKG Interpreted by Me EKG shows normal: sinus rhythm Rate: normal - EKG Data 11/28/18 22:38 EKG #1 demonstrates sinus, 82 bpm, left axis deviation, borderline left ventricular hypertrophy, left anterior fascicular block, QTC prolonged, nonspecific T-wave abnormalities, abnormal EKG, not consistent with ST elevation myocardial infarction. EKG #2 is unchanged from prior EKG. Both EKGs appeared to be unchanged when compared to prior EKG from 10/28/2018 - Radiology Data Radiology results: report reviewed, image reviewed X-ray of the chest is negative for acute disease. Critical care attestation.: If time is entered above; I have spent that time in minutes in the direct care of this critically ill patient, excluding procedure time. ED Disposition Clinical Impression: Gastroparesis, Chronic pain syndrome Disposition: - TO HOME OR SELFCARE Is pt being admited?: No Does the pt Need Aspirin: No Condition: Stable Instructions: Acute Nausea and Vomiting (ED) Additional Instructions: Advance diet as tolerated. Avoid consumption of Motrin, ibuprofen, Naprosyn, Aleve, heavy, spicy foods. Patient was reviewed on the [place] prescription monitoring database, and found to have multiple sedating and habit forming prescriptions, including 120 tablets of oxycodone acetaminophen, prescribed on November 15, in [place]. Long-term consumption of narcotics such as oxycodone may cause dependence, addiction, tolerance, and may actually cause and worsening gastroparesis, and abdominal pain. This entity is called narcotic bowel syndrome. I recommend the patient closely follow up with her outpatient primary care doctor in [place], Dr. Víctor Bourne, and consider de escalation and taper, and eventual discontinuation of narcotic and sedating medications. The patient may also follow-up with a local primary care doctor or gastroen terologist. Follow-up with a heel cover softener for report of chest pain within the next 3 days. Return to the emergency room right away with you, worsened or different symptoms. Prescriptions: Dicyclomine [Bentyl] 10 mg PO QID PRN #20 capsule PRN Reason: Pain Famotidine [Pepcid] 20 mg PO BID #60 tablet Promethazine [Phenergan SUPPOS] 50 mg MS Q6H PRN #15 supp.rect PRN Reason: Nausea Acetaminophen [Tylenol Arthritis] 650 mg PO Q6HR PRN #30 tablet.er PRN Reason: Pain Ondansetron [Zofran Odt] 4 mg PO Q8HR PRN #20 tab.rapdis PRN Reason: Nausea Referrals: [facility] [Provider Group] - 3-5 Days [facility] [Provider Group] - 3-5 Days [facility] [Provider Group] - 3-5 Days Forms: Accompanied Note
[2018-11-28] MEDS ORDERED: PEPCID IV ONE (22:30)
[2018-11-28] MEDS ORDERED: REGLAN IV ONE (22:30)
[2018-11-28] MEDS ORDERED: BENTYL IM ONE (22:37)
[2018-11-28] MEDS ORDERED: HALDOL IM STA ×2 (23:15→23:16)
[2018-11-29] MEDS ORDERED: HALDOL IM STA (00:14)
[2018-11-29] MEDS ORDERED: REGLAN IV ONE (00:44)
[2018-11-29] MEDS ORDERED: TORADOL IV ONE (01:15)
[2018-11-29 01:47] VITALS: BP 160/94
== END 2018-11-29 02:40 | disposition home or self-care (01) ==
LOC: ED 19:39
DX: K31.84 Gastroparesis (principal); G89.4 Chronic pain syndrome; I10 Essential (primary) hypertension; I11.0 Hypertensive heart disease with heart failure; I50.9 Heart failure, unspecified; E11.9 Type 2 diabetes mellitus without complications; K21.9 Gastro-esophageal reflux disease without esophagitis; Z90.49 Acquired absence of other specified parts of digestive tract; F17.200 Nicotine dependence, unspecified, uncomplicated
CPT/HCPCS: 36415; 71046; 80053; 84484; 84703; 85025; 85610; 85730; 93005; 93010; 96372; 96374; 96375; 99284; J0500; J1630; J1885; J2765; Q0162

== ENCOUNTER 2020-03-30 19:13 | Emergency (ER) | payer SELFPAY ==
--- NOTE | 2020-03-30 19:52 | Event Note ---
ED Screening Note ED Screening Note: CP AND SOB STATES LEGS SWOLLEN CARDIAC HX This initial assessment/diagnostic orders/clinical plan/treatment(s) is/are subject to change based on patients health status, clinical progression and re- assessment by fellow clinical providers in the ED. Further treatment and workup at subsequent clinical providers discretion. Patient/guardian urged not to elope from the ED as their condition may be serious if not clinically assessed and managed. Initial orders include: RO ACS
[2020-03-30 20:50] LABS: Hematocrit 29.7 % (30.3-42.9); Mean Corpuscular HGB Conc 34 % (30-34); Mean Corpuscular Volume 78 fl (79-97); Platelet Count 335 K/mm3 (140-440)
[2020-03-30 20:51] LABS: Red Cell Distribution Width 21.8 % (13.2-15.2)
[2020-03-30 20:56] LABS: Alanine Aminotransferase 10 units/L (7-56); Albumin 3.7 g/dL (3.9-5); BUN/Creatinine Ratio 15; Blood Urea Nitrogen 16 mg/dL (7-17); Hemolysis Index 5
[2020-03-31] MEDS ORDERED: DICYCLOMINE 20 MG/2 ML INJ IM ONE (01:28)
[2020-03-31] MEDS ORDERED: ONDANSETRON 4 MG/2 ML INJ IM ONE (01:28)
--- NOTE | 2020-03-31 01:33 | Emergency Department Report ---
ED General Adult HPI - General Chief complaint: Chest Pain Stated complaint: CHEST PAIN, NAUSEA, & BODY PAIN Time Seen by Provider: 03/30/20 19:48 Source: patient Mode of arrival: Ambulatory Limitations: No Limitations - History of Present Illness Initial comments: Patient is 40 years old female with history of cardiomyopathy, gastroparesis and chronic pain syndrome. Patient presented to the ER complaining of chest pain epigastric pain and back pain since yesterday. Patient described her chest pain as sharp with no radiation. Patient stated that she has been having nausea and vomiting since yesterday however patient denied any fever, chills. Patient also denied any recent contact with COVID-19 patient. -: days(s) (2) - Related Data Home Medications Medication Instructions Recorded Confirmed Last Taken FLUoxetine [PROzac] 20 mg PO QDAY 10/28/18 03/20/20 2 Days Ago ~03/18/20 Furosemide [Lasix] 20 mg PO QDAY 10/28/18 03/20/20 2 Days Ago ~03/18/20 Gabapentin [Neurontin] 400 mg PO TID 10/28/18 03/20/20 2 Days Ago ~03/18/20 Insulin Aspart (Nf) [NovoLOG 17 units SUB-Q TIDAC 10/28/18 03/20/20 2 Days Ago Flexpen] ~03/18/20 Insulin Detemir (Nf) [Levemir 20 units SUB-Q QHS 10/28/18 03/20/20 2 Days Ago Flextouch] ~03/18/20 Metoclopramide HCl [Reglan TAB] 5 mg PO TID 10/28/18 03/20/20 2 Days Ago ~03/18/20 Metoprolol Succinate [Toprol Xl] 25 mg PO QDAY 10/28/18 03/20/20 2 Days Ago ~03/18/20 Montelukast [Singulair] 10 mg PO QPM 10/28/18 03/20/20 2 Days Ago ~03/18/20 Oxycodone HCl/Acetaminophen 1 each PO Q6HR PRN 10/28/18 03/20/20 3 Days Ago [Percocet 10/325 mg] ~03/17/20 Spironolactone [Aldactone] 50 mg PO QDAY 10/28/18 03/20/20 2 Days Ago ~03/18/20 Trazodone HCl 150 mg PO HS 10/28/18 03/20/20 2 Days Ago ~03/18/20 Zaleplon 5 mg PO HS 10/28/18 03/20/20 2 Days Ago ~03/18/20 diazePAM [Diazepam] 2 mg PO QDAY 10/28/18 03/20/20 Unknown lisinopriL [Prinivil] 5 mg PO QDAY 10/28/18 03/20/20 2 Days Ago ~03/18/20 Previous Rx's Medication Instructions Recorded Last Taken Type Ondansetron [Zofran Odt] 4 mg PO Q8HR #20 tab.rapdis 10/28/18 3 Days Ago Rx ~03/17/20 Oxycodone HCl/Acetaminophen 1 each PO Q6HR PRN #12 tablet 10/28/18 3 Days Ago Rx [Percocet 7.5/325 mg] ~03/17/20 Promethazine HCl [Phenergan SUPPOS] 25 mg RC Q6H #12 supp.rect 10/28/18 Unknown Rx Acetaminophen [Tylenol Arthritis] 650 mg PO Q6HR PRN #30 tablet.er 11/29/18 2 Days Ago Rx ~03/18/20 Dicyclomine [Bentyl] 10 mg PO QID PRN #20 capsule 11/29/18 2 Days Ago Rx ~03/18/20 Famotidine [Pepcid] 20 mg PO BID #60 tablet 11/29/18 2 Days Ago Rx ~03/18/20 Ondansetron [Zofran Odt] 4 mg PO Q8HR PRN #20 tab.rapdis 11/29/18 3 Days Ago Rx ~03/17/20 Promethazine [Phenergan SUPPOS] 50 mg [place] Q6H PRN #15 supp.rect 11/29/18 2 Days Ago Rx ~03/18/20 Allergies Allergy/AdvReac Type Severity Reaction Status Date / Time banana Allergy Unknown Verified 06/28/18 14:43 broccoli Allergy Unknown Verified 06/28/18 14:43 pineapple Allergy Unknown Verified 06/28/18 14:43 carrots Allergy Unknown Uncoded 05/04/17 18:00 ice cream Allergy Unknown Uncoded 05/04/17 18:00 ED Review of Systems ROS: Stated complaint: CHEST PAIN, NAUSEA, & BODY PAIN Other details as noted in HPI Comment: All other systems reviewed and negative Constitutional: denies: chills, fever Respiratory: denies: cough, orthopnea, shortness of breath, SOB with exertion, SOB at rest, wheezing Cardiovascular: chest pain. denies: palpitations, dyspnea on exertion, orthopnea Gastrointestinal: denies: abdominal pain, nausea, vomiting, diarrhea, constipation, hematemesis, melena, hematochezia Musculoskeletal: denies: back pain Neurological: denies: headache, weakness, numbness, paresthesias, confusion ED Past Medical Hx - Past Medical History Hx Hypertension: Yes Hx CVA: Yes (left-sided weakness, uses walker and cane) Hx Congestive Heart Failure: Yes Hx Diabetes: Yes Hx GERD: Yes Hx Asthma: No Hx COPD: No Additional medical history: gastroparesis,anemia with h/o transfusions. sleep apnea with C-PAP - Surgical History Past Surgical History?: Yes Hx Internal Defibrillator: Yes (Cardiomyopathy, EF 55-60) Hx Cholecystectomy: Yes Additional Surgical History: partial Pituitary tumor removal, cryosurgery for cervical CA,. AICD - Social History Smoking Status: Current Every Day Smoker Substance Use Type: Alcohol - Medications Home Medications: Home Medications Medication Instructions Recorded Confirmed Last Taken Type FLUoxetine [PROzac] 20 mg PO QDAY 10/28/18 03/20/20 2 Days Ago History ~03/18/20 Furosemide [Lasix] 20 mg PO QDAY 10/28/18 03/20/20 2 Days Ago History ~03/18/20 Gabapentin [Neurontin] 400 mg PO TID 10/28/18 03/20/20 2 Days Ago History ~03/18/20 Insulin Aspart (Nf) [NovoLOG 17 units SUB-Q TIDAC 10/28/18 03/20/20 2 Days Ago History Flexpen] ~03/18/20 Insulin Detemir (Nf) [Levemir 20 units SUB-Q QHS 10/28/18 03/20/20 2 Days Ago History Flextouch] ~03/18/20 Metoclopramide HCl [Reglan TAB] 5 mg PO TID 10/28/18 03/20/20 2 Days Ago History ~03/18/20 Metoprolol Succinate [Toprol Xl] 25 mg PO QDAY 10/28/18 03/20/20 2 Days Ago History ~03/18/20 Montelukast [Singulair] 10 mg PO QPM 10/28/18 03/20/20 2 Days Ago History ~03/18/20 Ondansetron [Zofran Odt] 4 mg PO Q8HR #20 tab.rapdis 10/28/18 03/20/20 3 Days Ago Rx ~03/17/20 Oxycodone HCl/Acetaminophen 1 each PO Q6HR PRN 10/28/18 03/20/20 3 Days Ago History [Percocet 10/325 mg] ~03/17/20 Oxycodone HCl/Acetaminophen 1 each PO Q6HR PRN #12 tablet 10/28/18 03/20/20 3 Days Ago Rx [Percocet 7.5/325 mg] ~03/17/20 Promethazine HCl [Phenergan SUPPOS] 25 mg RC Q6H #12 supp.rect 10/28/18 03/20/20 Unknown Rx Spironolactone [Aldactone] 50 mg PO QDAY 10/28/18 03/20/20 2 Days Ago History ~03/18/20 Trazodone HCl 150 mg PO HS 10/28/18 03/20/20 2 Days Ago History ~03/18/20 Zaleplon 5 mg PO HS 10/28/18 03/20/20 2 Days Ago History ~03/18/20 diazePAM [Diazepam] 2 mg PO QDAY 10/28/18 03/20/20 Unknown History lisinopriL [Prinivil] 5 mg PO QDAY 10/28/18 03/20/20 2 Days Ago History ~03/18/20 Acetaminophen [Tylenol Arthritis] 650 mg PO Q6HR PRN #30 tablet.er 11/29/18 2 Days Ago Rx ~03/18/20 Dicyclomine [Bentyl] 10 mg PO QID PRN #20 capsule 11/29/18 03/20/20 2 Days Ago Rx ~03/18/20 Famotidine [Pepcid] 20 mg PO BID #60 tablet 11/29/18 03/20/20 2 Days Ago Rx ~03/18/20 Ondansetron [Zofran Odt] 4 mg PO Q8HR PRN #20 tab.rapdis 11/29/18 03/20/20 3 Days Ago Rx ~03/17/20 Promethazine [Phenergan SUPPOS] 50 mg [place] Q6H PRN #15 supp.rect 11/29/18 03/20/20 2 Days Ago Rx ~03/18/20 ED Physical Exam - General Limitations: No Limitations General appearance: alert, in no apparent distress - Head Head exam: Present: atraumatic, normocephalic, normal inspection - Eye Eye exam: Present: normal appearance - ENT ENT exam: Present: normal exam, normal orophraynx, mucous membranes moist - Neck Neck exam: Present: normal inspection, full ROM. Absent: tenderness, meningismus, lymphadenopathy, thyromegaly - Respiratory Respiratory exam: Present: normal lung sounds bilaterally - Cardiovascular Cardiovascular Exam: Present: regular rate, normal rhythm, normal heart sounds - GI/Abdominal GI/Abdominal exam: Present: soft, normal bowel sounds. Absent: distended, tend erness, rebound, rigid, mass, bruit, pulsatile mass, hernia - Extremities Exam Extremities exam: Present: normal inspection, full ROM, normal capillary refill. Absent: pedal edema, calf tenderness - Back Exam Back exam: Present: normal inspection, full ROM. Absent: CVA tenderness (R), CVA tenderness (L) - Neurological Exam Neurological exam: Present: alert, oriented X3, CN II-XII intact, normal gait, reflexes normal - Psychiatric Psychiatric exam: Present: normal mood - Skin Skin exam: Present: warm, intact, normal color ED Course Vital Signs 03/30/20 03/31/20 03/31/20 19:45 01:11 01:15 Temperature 97.7 F Pulse Rate 86 71 76 Respiratory 18 15 14 Rate Blood Pressure 138/71 109/67 O2 Sat by Pulse 99 100 100 Oximetry 03/31/20 01:31 Temperature Pulse Rate 80 Respiratory 20 Rate Blood Pressure 109/67 O2 Sat by Pulse 100 Oximetry ED Medical Decision Making - Lab Data Result diagrams: 03/30/20 19:54 03/30/20 19:54 - EKG Data -: EKG Interpreted by [facility] EKG shows normal: sinus rhythm Rate: normal - EKG Data Interpretation: no acute changes - Radiology Data Radiology results: report reviewed - Medical Decision Making Patient is 40 years old female with history of cardiomyopathy, gastroparesis and chronic pain syndrome. Patient presented to the ER complaining of chest pain epigastric pain and back pain since yesterday. Patient described her chest pain as sharp with no radiation. Patient stated that she has been having nausea and vomiting since yesterday however patient denied any fever, chills. Patient also denied any recent contact with COVID-19 patient. Patient labs reviewed and is unremarkable. Chest x-ray is negative for acute finding. Patient remained stable in the emergency room with stable vital signs and oxygen saturation of 100% on room air. Patient kept asking for Dilaudid. Patient stated that this is the only medicine that works for her pain. I reviewed previous patient record and documented by previous provider that this patient has narcotic seeking behavior. Patient given BENTYL and Zofran. I co ncur that this patient is having a narcotic seeking behavior. I advised the patient to follow-up with drug rehab and I gave her local resources to follow- up. Critical care attestation.: If time is entered above; I have spent that time in minutes in the direct care of this critically ill patient, excluding procedure time. ED Disposition Clinical Impression: Atypical chest pain, Chronic pain, Nausea & vomiting, Drug-seeking behavior Disposition: DC-01 TO HOME OR SELFCARE Is pt being admited?: No Condition: Stable Instructions: Chest Pain (ED), Narcotic Pain Management (ED) Referrals: [facility] [Provider Group] - 3-5 Days
--- NOTE | 2020-03-31 01:37 | XRay Report ---
CHEST 1 VIEW INDICATION / CLINICAL INFORMATION: CP. Chest pain COMPARISON: None available. FINDINGS: SUPPORT DEVICES: None. HEART / MEDIASTINUM: No significant abnormality. LUNGS / PLEURA: No significant pulmonary or pleural abnormality. No pneumothorax. ADDITIONAL FINDINGS: No significant additional findings. IMPRESSION: 1. No acute findings. Signer Name: Edmundo Montiel MD Signed: 03/31/2020 1:32 AM Workstation Name: [id number]
[2020-03-31 01:56] VITALS: BP 109/67
== END 2020-03-31 02:40 | disposition home or self-care (01) ==
LOC: ED 19:13
DX: R07.89 Other chest pain (principal); R11.2 Nausea with vomiting, unspecified; G89.29 Other chronic pain; I11.0 Hypertensive heart disease with heart failure; I50.9 Heart failure, unspecified; E11.9 Type 2 diabetes mellitus without complications; K21.9 Gastro-esophageal reflux disease without esophagitis; F17.200 Nicotine dependence, unspecified, uncomplicated; Z76.5 Malingerer [conscious simulation]; Z90.49 Acquired absence of other specified parts of digestive tract; Z98.890 Other specified postprocedural states; Z86.73 Personal history of transient ischemic attack (TIA), and cerebral infarction without residual deficits; Z79.4 Long term (current) use of insulin; Z79.899 Other long term (current) drug therapy; Z91.018 Allergy to other foods
CPT/HCPCS: 36415; 71045; 80053; 83880; 84484; 84703; 85025; 93005; 99284; J0500; J2405

== ENCOUNTER 2020-12-23 17:43 | Emergency (ER) | payer SELFPAY ==
--- NOTE | 2020-12-23 19:43 | Event Note ---
ED Screening Note ED Screening Note: bilateral upper abd pain that radiates to the back that began 2 days ago +n/v +black stools hx of GI bleed and anemia had a laser procedure performed 4 weeks ago on her stomach had a RBC transfusion two weeks ago multiple medical problems This initial assessment/diagnostic orders/clinical plan/treatment(s) is/are subject to change based on patients health status, clinical progression and re- assessment by fellow clinical providers in the ED. Further treatment and workup at subsequent clinical providers discretion. Patient/guardian urged not to elope from the ED as their condition may be serious if not clinically assessed and managed. Initial orders include: labs, UA
[2020-12-23 20:16] LABS: Basophils # (Auto) 0.2 K/mm3 (0.0-0.1); Basophils % (Auto) 1.1 % (0.0-1.8); Eosinophils # (Auto) 0.6 K/mm3 (0.0-0.4); Eosinophils % (Auto) 4.3 % (0.0-4.3); Hematocrit 32.1 % (30.3-42.9); Hemoglobin 10.5 gm/dl (10.1-14.3); Lymphocytes # (Auto) 2.1 K/mm3 (1.2-5.4); Mean Corpuscular HGB Conc 33 % (30-34); Mean Corpuscular Volume 80 fl (79-97); Monocytes # (Auto) 0.8 K/mm3 (0.0-0.8); Monocytes % (Auto) 5.8 % (0.0-7.3); Platelet Count 341 K/mm3 (140-440); Red Blood Count 4.01 M/mm3 (3.65-5.03)
[2020-12-23 20:19] LABS: Red Cell Distribution Width 21.6 % (13.2-15.2)
[2020-12-23 20:29] LABS: INR 0.96 (0.87-1.13); Partial Thromboplastin Time 24.4 Sec. (24.2-36.6)
[2020-12-23 20:33] LABS: Albumin 4.1 g/dL (3.9-5)
[2020-12-23] MEDS ORDERED: SODIUM CHLORIDE 0.9% 1000 ML 1,000 ML IV ONE (21:50)
[2020-12-23] MEDS ORDERED: ONDANSETRON 4 MG/2 ML INJ IV ONE (21:50)
[2020-12-23] MEDS ORDERED: MORPHINE 4 MG/1 ML INJ IV ONE (21:51)
--- NOTE | 2020-12-23 21:59 | Emergency Department Report ---
ED Abdominal Pain HPI - General Chief Complaint: Nausea/Vomiting/Diarrhea Stated Complaint: N/V PUI?: No Time Seen by Provider: 12/23/20 19:40 Source: patient Mode of arrival: Ambulatory Limitations: No Limitations - History of Present Illness Initial Comments: Chief complaint: "I have been throwing up for the past 2-1/2 days." HPI: This is a 40-year-old female with history of hypertension, depression, TIA, fibromyalgia, GERD, cardiomyopathy, diabetes mellitus, diabetic gastroparesis who presents with abdominal pain nausea vomiting for the past 2-1/2 days. Patient has had diffuse abdominal crampy pain. Has had nausea vomiting. She denies any hematemesis or bloody stools. 4 weeks ago at [facility], she underwent "laser surgery" for "bleeding in my bowels." Patient lives in [place]. She states that she is here visiting [place]. Complaint: abdominal pain -: Gradual, days(s) (2.5 days) Location: diffuse Severity scale (0 -10): 10 Quality: cramping, aching Consistency: constant Improves With: nothing Worsens With: nothing Associated Symptoms: nausea, vomiting - Related Data Home Medications Medication Instructions Recorded Confirmed Last Taken FLUoxetine [PROzac] 20 mg PO QDAY 10/28/18 03/20/20 2 Days Ago ~03/18/20 Furosemide [Lasix] 20 mg PO QDAY 10/28/18 03/20/20 2 Days Ago ~03/18/20 Gabapentin [Neurontin] 400 mg PO TID 10/28/18 03/20/20 2 Days Ago ~03/18/20 Insulin Aspart (Nf) [NovoLOG 17 units SUB-Q TIDAC 10/28/18 03/20/20 2 Days Ago Flexpen] ~03/18/20 Insulin Detemir (Nf) [Levemir 20 units SUB-Q QHS 10/28/18 03/20/20 2 Days Ago Flextouch] ~03/18/20 Metoclopramide HCl [Reglan TAB] 5 mg PO TID 10/28/18 03/20/20 2 Days Ago ~03/18/20 Metoprolol Succinate [Toprol Xl] 25 mg PO QDAY 10/28/18 03/20/20 2 Days Ago ~03/18/20 Montelukast [Singulair] 10 mg PO QPM 10/28/18 03/20/20 2 Days Ago ~03/18/20 Oxycodone HCl/Acetaminophen 1 each PO Q6HR PRN 10/28/18 03/20/20 3 Days Ago [Percocet 10/325 mg] ~03/17/20 Spironolactone [Aldactone] 50 mg PO QDAY 10/28/18 03/20/20 2 Days Ago ~03/18/20 Trazodone HCl 150 mg PO HS 10/28/18 03/20/20 2 Days Ago ~03/18/20 Zaleplon 5 mg PO HS 10/28/18 03/20/20 2 Days Ago ~03/18/20 diazePAM [Diazepam] 2 mg PO QDAY 10/28/18 03/20/20 Unknown lisinopriL [Prinivil] 5 mg PO QDAY 10/28/18 03/20/20 2 Days Ago ~03/18/20 Previous Rx's Medication Instructions Recorded Last Taken Type Ondansetron [Zofran Odt] 4 mg PO Q8HR #20 tab.rapdis 10/28/18 3 Days Ago Rx ~03/17/20 Oxycodone HCl/Acetaminophen 1 each PO Q6HR PRN #12 tablet 10/28/18 3 Days Ago Rx [Percocet 7.5/325 mg] ~03/17/20 Promethazine HCl [Phenergan SUPPOS] 25 mg RC Q6H #12 supp.rect 10/28/18 Unknown Rx Acetaminophen [Tylenol Arthritis] 650 mg PO Q6HR PRN #30 tablet.er 11/29/18 2 Days Ago Rx ~03/18/20 Dicyclomine [Bentyl] 10 mg PO QID PRN #20 capsule 11/29/18 2 Days Ago Rx ~03/18/20 Famotidine [Pepcid] 20 mg PO BID #60 tablet 11/29/18 2 Days Ago Rx ~03/18/20 Ondansetron [Zofran Odt] 4 mg PO Q8HR PRN #20 tab.rapdis 11/29/18 3 Days Ago Rx ~03/17/20 Promethazine [Phenergan SUPPOS] 50 mg [place] Q6H PRN #15 supp.rect 11/29/18 2 Days Ago Rx ~03/18/20 Naproxen [Naprosyn] 500 mg PO BID #14 tablet 03/31/20 Unknown Rx HYDROcodone/APAP 5-325 [[place] 1 each PO Q6HR PRN #10 tablet 12/24/20 Unknown Rx 5/325] Ondansetron [Zofran Odt] 4 mg PO Q8HR PRN #10 tab.rapdis 12/24/20 Unknown Rx Allergies Allergy/AdvReac Type Severity Reaction Status Date / Time banana Allergy Unknown Verified 06/28/18 14:43 broccoli Allergy Unknown Verified 06/28/18 14:43 pineapple Allergy Unknown Verified 06/28/18 14:43 carrots Allergy Unknown Uncoded 05/04/17 18:00 ice cream Allergy Unknown Uncoded 05/04/17 18:00 ED Review of Systems ROS: Stated complaint: N/V Other details as noted in HPI Comment: All other systems reviewed and negative Constitutional: denies: fever, malaise Cardiovascular: denies: chest pain Gastrointestinal: abdominal pain, nausea, vomiting. denies: diarrhea ED Past Medical Hx - Past Medical History Previous Medical History?: Yes Hx Hypertension: Yes Hx CVA: Yes (left-sided weakness, uses walker and cane) Hx Congestive Heart Failure: Yes Hx Diabetes: Yes Hx GERD: Yes Hx Asthma: No Hx COPD: No Additional medical history: gastroparesis,anemia with h/o transfusions. sleep apnea with C-PAP - Surgical History Past Surgical History?: Yes Hx Internal Defibrillator: Yes (Cardiomyopathy, EF 55-60) Hx Cholecystectomy: Yes Additional Surgical History: partial Pituitary tumor removal, cryosurgery for cervical CA,. AICD - Social History Smoking Status: Current Every Day Smoker Substance Use Type: Alcohol - Medications Home Medications: Home Medications Medication Instructions Recorded Confirmed Last Taken Type FLUoxetine [PROzac] 20 mg PO QDAY 10/28/18 03/20/20 2 Days Ago History ~03/18/20 Furosemide [Lasix] 20 mg PO QDAY 10/28/18 03/20/20 2 Days Ago History ~03/18/20 Gabapentin [Neurontin] 400 mg PO TID 10/28/18 03/20/20 2 Days Ago History ~03/18/20 Insulin Aspart (Nf) [NovoLOG 17 units SUB-Q TIDAC 10/28/18 03/20/20 2 Days Ago History Flexpen] ~03/18/20 Insulin Detemir (Nf) [Levemir 20 units SUB-Q QHS 10/28/18 03/20/20 2 Days Ago History Flextouch] ~03/18/20 Metoclopramide HCl [Reglan TAB] 5 mg PO TID 10/28/18 03/20/20 2 Days Ago History ~03/18/20 Metoprolol Succinate [Toprol Xl] 25 mg PO QDAY 10/28/18 03/20/20 2 Days Ago History ~03/18/20 Montelukast [Singulair] 10 mg PO QPM 10/28/18 03/20/20 2 Days Ago History ~03/18/20 Ondansetron [Zofran Odt] 4 mg PO Q8HR #20 tab.rapdis 10/28/18 03/20/20 3 Days Ago Rx ~03/17/20 Oxycodone HCl/Acetaminophen 1 each PO Q6HR PRN 10/28/18 03/20/20 3 Days Ago History [Percocet 10/325 mg] ~03/17/20 Oxycodone HCl/Acetaminophen 1 each PO Q6HR PRN #12 tablet 10/28/18 03/20/20 3 Days Ago Rx [Percocet 7.5/325 mg] ~03/17/20 Promethazine HCl [Phenergan SUPPOS] 25 mg RC Q6H #12 supp.rect 10/28/18 03/20/20 Unknown Rx Spironolactone [Aldactone] 50 mg PO QDAY 10/28/18 03/20/20 2 Days Ago History ~03/18/20 Trazodone HCl 150 mg PO HS 10/28/18 03/20/20 2 Days Ago History ~03/18/20 Zaleplon 5 mg PO HS 10/28/18 03/20/20 2 Days Ago History ~03/18/20 diazePAM [Diazepam] 2 mg PO QDAY 10/28/18 03/20/20 Unknown History lisinopriL [Prinivil] 5 mg PO QDAY 10/28/18 03/20/20 2 Days Ago History ~03/18/20 Acetaminophen [Tylenol Arthritis] 650 mg PO Q6HR PRN #30 tablet.er 11/29/18 03/20/20 2 Days Ago Rx ~03/18/20 Dicyclomine [Bentyl] 10 mg PO QID PRN #20 capsule 11/29/18 03/20/20 2 Days Ago Rx ~03/18/20 Famotidine [Pepcid] 20 mg PO BID #60 tablet 11/29/18 03/20/20 2 Days Ago Rx ~03/18/20 Ondansetron [Zofran Odt] 4 mg PO Q8HR PRN #20 tab.rapdis 11/29/18 03/20/20 3 Days Ago Rx ~03/17/20 Promethazine [Phenergan SUPPOS] 50 mg [place] Q6H PRN #15 supp.rect 11/29/18 03/20/20 2 Days Ago Rx ~03/18/20 Naproxen [Naprosyn] 500 mg PO BID #14 tablet 03/31/20 Unknown Rx HYDROcodone/APAP 5-325 [[place] 1 each PO Q6HR PRN #10 tablet 12/24/20 Unknown Rx 5/325] Ondansetron [Zofran Odt] 4 mg PO Q8HR PRN #10 tab.rapdis 12/24/20 Unknown Rx ED Physical Exam - General Limitations: No Limitations General appearance: alert, in no apparent distress, other (Appears comfortable, no active vomiting,) - Head Head exam: Present: atraumatic, normocephalic - Eye Eye exam: Present: normal appearance - ENT ENT exam: Present: mucous membranes moist - Neck Neck exam: Present: normal inspection, full ROM - Respiratory Respiratory exam: Present: normal lung sounds bilaterally. Absent: respiratory distress, wheezes, rales, rhonchi - Cardiovascular Cardiovascular Exam: Present: regular rate, normal rhythm, normal heart sounds. Absent: systolic murmur, diastolic murmur, rubs, gallop - GI/Abdominal GI/Abdominal exam: Present: soft, normal bowel sounds. Absent: distended, tenderness, guarding, rebound - Extremities Exam Extremities exam: Present: normal inspection - Neurological Exam Neurological exam: Present: alert, oriented X3 - Psychiatric Psychiatric exam: Present: normal affect, normal mood - Skin Skin exam: Present: warm, dry, intact, normal color. Absent: rash ED Course Vital Signs 12/23/20 12/23/20 12/23/20 18:09 21:42 21:46 Temperature 98.2 F Pulse Rate 105 H 103 H 92 H Respiratory 20 15 Rate Blood Pressure 136/73 115/72 O2 Sat by Pulse 98 98 Oximetry 12/23/20 12/23/20 12/23/20 22:00 22:16 22:30 Temperature Pulse Rate 91 H 93 H 90 Respiratory 15 13 17 Rate Blood Pressure 115/72 119/75 119/75 O2 Sat by Pulse 100 Oximetry 12/23/20 12/23/20 12/23/20 22:46 23:00 23:16 Temperature Pulse Rate 91 H 87 87 Respiratory 14 16 15 Rate Blood Pressure 115/66 115/66 107/68 O2 Sat by Pulse 99 100 Oximetry 12/23/20 12/23/20 23:30 23:46 Temperature Pulse Rate 89 89 Respiratory 18 17 Rate Blood Pressure 107/68 114/70 O2 Sat by Pulse 94 Oximetry ED Medical Decision Making - Lab Data Result diagrams: 12/23/20 19:53 12/23/20 19:53 - Medical Decision Making Recurrent abdominal pain with history of diabetic gastroparesis. Patient does not have any tenderness or fever on exam to indicate a peritonitis. Hemoglobin hematocrit at baseline. No indication of active bleeding. With history of recent surgery I do not suspect perforation or obstruction. Patient given retu rn precautions. Prescribed Zofran and [place]. She plans to return to [place] on . Patient did not have any vomiting during 4 hours of observation. Critical care attestation.: If time is entered above; I have spent that time in minutes in the direct care of this critically ill patient, excluding procedure time. ED Disposition Clinical Impression: Diabetic gastroparesis Disposition: - TO HOME OR SELFCARE Is pt being admited?: No Does the pt Need Aspirin: No Condition: Stable Instructions: Diabetes Mellitus Type 2 in Adults (ED), Gastroparesis Prescriptions: HYDROcodone/APAP 5-325 [[place] 5/325] 1 each PO Q6HR PRN #10 tablet PRN Reason: Pain Ondansetron [Zofran Odt] 4 mg PO Q8HR PRN #10 tab.rapdis PRN Reason: Nausea Referrals: KATHY CARO MD [Staff Physician] - as needed
[2020-12-24] MEDS ORDERED: ONDANSETRON 4 MG/2 ML INJ IV ONE (00:25)
[2020-12-24] MEDS ORDERED: MORPHINE 4 MG/1 ML INJ IV ONE (00:25)
[2020-12-24 01:40] VITALS: BP 99/63
== END 2020-12-24 01:30 | disposition home or self-care (01) ==
LOC: ED 17:43
DX: E11.43 Type 2 diabetes mellitus with diabetic autonomic (poly)neuropathy (principal); K31.84 Gastroparesis; I11.0 Hypertensive heart disease with heart failure; I50.9 Heart failure, unspecified; K21.9 Gastro-esophageal reflux disease without esophagitis; F17.200 Nicotine dependence, unspecified, uncomplicated; Z79.899 Other long term (current) drug therapy; Z91.018 Allergy to other foods
CPT/HCPCS: 36415; 80053; 83690; 85025; 85610; 85730; 96361; 96374; 96375; 96376; 99283; J2270; J2405; J7030

== ENCOUNTER 2021-01-03 14:13 | Emergency (ER) | payer SELFPAY ==
[2021-01-03 15:54] VITALS: BP 130/109
[2021-01-03 17:11] LABS: Basophils # (Auto) 0.1 K/mm3 (0.0-0.1); Eosinophils # (Auto) 0.2 K/mm3 (0.0-0.4); Eosinophils % (Auto) 2.7 % (0.0-4.3); Hemoglobin 8.4 gm/dl (10.1-14.3); Lymphocytes # (Auto) 1.2 K/mm3 (1.2-5.4); Lymphocytes % (Auto) 16.1 % (13.4-35.0); Mean Corpuscular HGB Conc 31 % (30-34); Mean Corpuscular Volume 81 fl (79-97); Monocytes # (Auto) 0.3 K/mm3 (0.0-0.8); Monocytes % (Auto) 3.4 % (0.0-7.3); Platelet Count 316 K/mm3 (140-440); Red Blood Count 3.33 M/mm3 (3.65-5.03); Red Cell Distribution Width 19.8 % (13.2-15.2)
--- NOTE | 2021-01-03 17:32 | Event Note ---
ED Screening Note Date of service: 01/03/21 Time: 17:31 ED Screening Note: 40-year-old female patient with history of hypertension, TIA, cardiomyopathy, congestive heart failure, diabetes, gastroparesis, anemia requiring blood transfusion, ovarian cysts, and early stage ovarian cancer status post cryosurgery presents to the emergency department with complaints of chest pain and shortness of breath starting 2 hours ago as well as pelvic pain and vaginal bleeding for the last few days. Patient states she has bled through approximately 13 pads today. She is not currently anticoagulated. She is not currently using contraception. This is patient's second menstrual cycle within 30 days; states her periods are usually regular. General: Awake, appropriately interactive, no acute distress. Neck: Supple. Full range of motion intact. Cardiovascular: Normal peripheral perfusion. Pulmonary: No respiratory distress. Patient is speaking normally without use of accessory muscles. Abdomen: Soft, nondistended. Diffuse lower abdominal tenderness without guarding, rebound, or rigidity. Skin: No apparent rashes or lesions. Neurological: No facial asymmetry. Speech is clear. Follows commands. Patient is alert and oriented. Musculoskeletal: Moves all four extremities spontaneously with normal range of motion. Psych: Cooperative. Appropriate mood and affect. I have greeted and performed a focused rapid initial assessment of this patient. A comprehensive ED assessment and evaluation of the patient, analysis of all test results, and completion of the medical decision-making process will be conducted by additional ED providers. This initial assessment/diagnostic orders/clinical plan/treatment(s) is/are subject to change based on patients health status, clinical progression and re-assessment. Further treatment and workup at subsequent clinical provider's discretion. Patient/guardian urged not to elope from the ED as their condition may be serious if not clinically assessed and managed.
--- NOTE | 2021-01-03 18:03 | XRay Report ---
CHEST 2 VIEWS INDICATION / CLINICAL INFORMATION: chest pain. COMPARISON: One view of the chest from 03/31/2020. FINDINGS: SUPPORT DEVICES: Unchanged. HEART / MEDIASTINUM: No significant abnormality. LUNGS / PLEURA: Clear lungs. No significant pleural effusion. No pneumothorax. ADDITIONAL FINDINGS: No significant additional findings. IMPRESSION: 1. No acute abnormality of the chest. Signer Name: Kermit Chang MD Signed: 01/03/2021 5:59 PM Workstation Name: [id number]
[2021-01-03 18:36] LABS: INR 1.02 (0.87-1.13)
[2021-01-03 18:37] LABS: Partial Thromboplastin Time 31.2 Sec. (24.2-36.6)
[2021-01-03 18:41] LABS: Alanine Aminotransferase 7 units/L (7-56); Albumin 3.8 g/dL (3.9-5); BUN/Creatinine Ratio 10; Blood Urea Nitrogen 9 mg/dL (7-17); Calcium 8.5 mg/dL (8.4-10.2); Hemolysis Index 5
[2021-01-03] MEDS ORDERED: MORPHINE 4 MG/1 ML INJ IV ONE (19:33)
[2021-01-03] MEDS ORDERED: ONDANSETRON 4 MG/2 ML INJ IV ONE (19:33)
[2021-01-03] MEDS ORDERED: SODIUM CHLORIDE 0.9% 1000 ML 1,000 ML IV ONE (19:33)
--- NOTE | 2021-01-03 19:42 | Emergency Department Report ---
ED Female HPI - General Chief complaint: Vaginal Bleeding Stated complaint: VAG BLEEDING /ABD PAINS Source: EMS Mode of arrival: Ambulatory Limitations: No Limitations - History of Present Illness Initial comments: Patient is a A7 40-year-old -[place]is[place] female with a history of CHF, hypertension, GERD, fss-zhkyxyb-[id number] diabetes, CVA with resultant left- sided hemiparesis using cane to ambulate, gastroparesis and sleep apnea and uses CPAP presents to the ED with complaint of acute onset persistent diffuse low abdominal pain with heavy vaginal bleeding for the last 24 hours. Patient states that the pain and the heavy vaginal bleeding of worsened in the last 12 hours. Patient states that the symptoms are not similar to what she always experiences during her menstrual cycle because of heavy vaginal bleeding. Patient also complains of persistent nausea and vomiting, and having had up to 6 episodes of nausea and vomiting in the last 8 hours. Patient denies dizziness, syncope, lightheadedness, chest pain, shortness of breath, dysuria, urinary frequency and urgency, vaginal discharge, low back pain, fever, chills, sore throat or headache. MD Complaint: vaginal bleeding, pelvic pain, other (nausea and vomiting) -: Sudden, hour(s) (24) Location: suprapubic, other (vaginal) Radiation: suprapubic Severity: severe Severity scale (0 -10): 7 Quality: cramping, sharp Consistency: constant Improves with: none Worsens with: movement Are you Now?: No Associated Symptoms: denies other symptoms, vaginal bleeding, abdominal pain (suprapubic), nausea/vomiting. denies: vaginal discharge, fever/chills, headaches, loss of appetite, dysuria, hematuria, rash, seizure, shortness of breath, syncope, weakness, other - Related Data Sexually active: Yes : 7 Para: 0 A: 7 Home Medications Medication Instructions Recorded Confirmed Last Taken FLUoxetine [PROzac] 20 mg PO QDAY 10/28/18 03/20/20 2 Days Ago ~03/18/20 Furosemide [Lasix] 20 mg PO QDAY 10/28/18 03/20/20 2 Days Ago ~03/18/20 Gabapentin [Neurontin] 400 mg PO TID 10/28/18 03/20/20 2 Days Ago ~03/18/20 Insulin Aspart (Nf) [NovoLOG 17 units SUB-Q TIDAC 10/28/18 03/20/20 2 Days Ago Flexpen] ~03/18/20 Insulin Detemir (Nf) [Levemir 20 units SUB-Q QHS 10/28/18 03/20/20 2 Days Ago Flextouch] ~03/18/20 Metoclopramide HCl [Reglan TAB] 5 mg PO TID 10/28/18 03/20/20 2 Days Ago ~03/18/20 Metoprolol Succinate [Toprol Xl] 25 mg PO QDAY 10/28/18 03/20/20 2 Days Ago ~03/18/20 Montelukast [Singulair] 10 mg PO QPM 10/28/18 03/20/20 2 Days Ago ~03/18/20 Oxycodone HCl/Acetaminophen 1 each PO Q6HR PRN 10/28/18 03/20/20 3 Days Ago [Percocet 10/325 mg] ~03/17/20 Spironolactone [Aldactone] 50 mg PO QDAY 10/28/18 03/20/20 2 Days Ago ~03/18/20 Trazodone HCl 150 mg PO HS 10/28/18 03/20/20 2 Days Ago ~03/18/20 Zaleplon 5 mg PO HS 10/28/18 03/20/20 2 Days Ago ~03/18/20 diazePAM [Diazepam] 2 mg PO QDAY 10/28/18 03/20/20 Unknown lisinopriL [Prinivil] 5 mg PO QDAY 10/28/18 03/20/20 2 Days Ago ~03/18/20 Previous Rx's Medication Instructions Recorded Last Taken Type Ondansetron [Zofran Odt] 4 mg PO Q8HR #20 tab.rapdis 10/28/18 3 Days Ago Rx ~03/17/20 Oxycodone HCl/Acetaminophen 1 each PO Q6HR PRN #12 tablet 10/28/18 3 Days Ago Rx [Percocet 7.5/325 mg] ~03/17/20 Promethazine HCl [Phenergan SUPPOS] 25 mg RC Q6H #12 supp.rect 10/28/18 Unknown Rx Acetaminophen [Tylenol Arthritis] 650 mg PO Q6HR PRN #30 tablet.er 11/29/18 2 Days Ago Rx ~03/18/20 Dicyclomine [Bentyl] 10 mg PO QID PRN #20 capsule 11/29/18 2 Days Ago Rx ~03/18/20 Famotidine [Pepcid] 20 mg PO BID #60 tablet 11/29/18 2 Days Ago Rx ~03/18/20 Ondansetron [Zofran Odt] 4 mg PO Q8HR PRN #20 tab.rapdis 11/29/18 3 Days Ago Rx ~03/17/20 Promethazine [Phenergan SUPPOS] 50 mg [place] Q6H PRN #15 supp.rect 11/29/18 2 Days Ago Rx ~03/18/20 Naproxen [Naprosyn] 500 mg PO BID #14 tablet 03/31/20 Unknown Rx HYDROcodone/APAP 5-325 [Alicia 1 each PO Q6HR PRN #10 tablet 12/24/20 Unknown Rx 5/325] Ondansetron [Zofran Odt] 4 mg PO Q8HR PRN #10 tab.rapdis 12/24/20 Unknown Rx Acetaminophen/Codeine [Tylenol 1 - 2 tab PO Q6H PRN #12 tab 01/04/21 Unknown Rx /Codeine # 3 tab] Ibuprofen [Motrin] 800 mg PO Q8HR PRN #30 tablet 01/04/21 Unknown Rx Ondansetron [Zofran Odt] 4 mg PO Q6HR PRN #20 tab.rapdis 01/04/21 Unknown Rx Allergies Allergy/AdvReac Type Severity Reaction Status Date / Time banana Allergy Unknown Verified 06/28/18 14:43 broccoli Allergy Unknown Verified 06/28/18 14:43 pineapple Allergy Unknown Verified 06/28/18 14:43 carrots Allergy Unknown Uncoded 05/04/17 18:00 ice cream Allergy Unknown Uncoded 05/04/17 18:00 ED Review of Systems ROS: Stated complaint: VAG BLEEDING /ABD PAINS Other details as noted in HPI Constitutional: denies: chills, fever Eyes: denies: eye pain, eye discharge, vision change ENT: denies: ear pain, throat pain Respiratory: denies: cough, shortness of breath, wheezing Cardiovascular: denies: chest pain, palpitations Endocrine: no symptoms reported Gastrointestinal: abdominal pain (suprapubic), nausea, vomiting. denies: diarrhea, constipation, hematemesis, melena, hematochezia Genitourinary: hematuria, abnormal menses (Heavy vaginal bleeding). denies: urgency, dysuria, frequency, discharge Musculoskeletal: denies: back pain, joint swelling, arthralgia Skin: denies: rash, lesions Neurological: headache. denies: weakness, paresthesias Psychiatric: denies: anxiety, depression Hematological/Lymphatic: denies: easy bleeding, easy bruising ED Past Medical Hx - Past Medical History Previous Medical History?: Yes Hx Hypertension: Yes Hx CVA: Yes (left-sided weakness, uses walker and cane) Hx Congestive Heart Failure: Yes Hx Diabetes: Yes Hx GERD: Yes Hx Asthma: No Hx COPD: No Additional medical history: gastroparesis,anemia with h/o transfusions. sleep apnea with C-PAP - Surgical History Hx Internal Defibrillator: Yes (Cardiomyopathy, EF 55-60) Hx Cholecystectomy: Yes Additional Surgical History: partial Pituitary tumor removal, cryosurgery for cervical CA,. AICD - Social History Smoking Status: Current Every Day Smoker Substance Use Type: Alcohol - Medications Home Medications: Home Medications Medication Instructions Recorded Confirmed Last Taken Type FLUoxetine [PROzac] 20 mg PO QDAY 10/28/18 03/20/20 2 Days Ago History ~03/18/20 Furosemide [Lasix] 20 mg PO QDAY 10/28/18 03/20/20 2 Days Ago History ~03/18/20 Gabapentin [Neurontin] 400 mg PO TID 10/28/18 03/20/20 2 Days Ago History ~03/18/20 Insulin Aspart (Nf) [NovoLOG 17 units SUB-Q TIDAC 10/28/18 03/20/20 2 Days Ago History Flexpen] ~03/18/20 Insulin Detemir (Nf) [Levemir 20 units SUB-Q QHS 10/28/18 03/20/20 2 Days Ago History Flextouch] ~03/18/20 Metoclopramide HCl [Reglan TAB] 5 mg PO TID 10/28/18 03/20/20 2 Days Ago History ~03/18/20 Metoprolol Succinate [Toprol Xl] 25 mg PO QDAY 10/28/18 03/20/20 2 Days Ago History ~03/18/20 Montelukast [Singulair] 10 mg PO QPM 10/28/18 03/20/20 2 Days Ago History ~03/18/20 Ondansetron [Zofran Odt] 4 mg PO Q8HR #20 tab.rapdis 10/28/18 03/20/20 3 Days Ago Rx ~03/17/20 Oxycodone HCl/Acetaminophen 1 each PO Q6HR PRN 10/28/18 03/20/20 3 Days Ago History [Percocet 10/325 mg] ~03/17/20 Oxycodone HCl/Acetaminophen 1 each PO Q6HR PRN #12 tablet 10/28/18 03/20/20 3 Days Ago Rx [Percocet 7.5/325 mg] ~03/17/20 Promethazine HCl [Phenergan SUPPOS] 25 mg RC Q6H #12 supp.rect 10/28/18 03/20/20 Unknown Rx Spironolactone [Aldactone] 50 mg PO QDAY 10/28/18 03/20/20 2 Days Ago History ~03/18/20 Trazodone HCl 150 mg PO HS 10/28/18 03/20/20 2 Days Ago History ~03/18/20 Zaleplon 5 mg PO HS 10/28/18 03/20/20 2 Days Ago History ~03/18/20 diazePAM [Diazepam] 2 mg PO QDAY 10/28/18 03/20/20 Unknown History lisinopriL [Prinivil] 5 mg PO QDAY 10/28/18 03/20/20 2 Days Ago History ~03/18/20 Acetaminophen [Tylenol Arthritis] 650 mg PO Q6HR PRN #30 tablet.er 11/29/18 03/20/20 2 Days Ago Rx ~03/18/20 Dicyclomine [Bentyl] 10 mg PO QID PRN #20 capsule 11/29/18 03/20/20 2 Days Ago Rx ~03/18/20 Famotidine [Pepcid] 20 mg PO BID #60 tablet 11/29/18 03/20/20 2 Days Ago Rx ~03/18/20 Ondansetron [Zofran Odt] 4 mg PO Q8HR PRN #20 tab.rapdis 11/29/18 03/20/20 3 Days Ago Rx ~03/17/20 Promethazine [Phenergan SUPPOS] 50 mg [place] Q6H PRN #15 supp.rect 11/29/18 03/20/20 2 Days Ago Rx ~03/18/20 Naproxen [Naprosyn] 500 mg PO BID #14 tablet 03/31/20 Unknown Rx HYDROcodone/APAP 5-325 [Alicia 1 each PO Q6HR PRN #10 tablet 12/24/20 Unknown Rx 5/325] Ondansetron [Zofran Odt] 4 mg PO Q8HR PRN #10 tab.rapdis 12/24/20 Unknown Rx Acetaminophen/Codeine [Tylenol 1 - 2 tab PO Q6H PRN #12 tab 01/04/21 Unknown Rx /Codeine # 3 tab] Ibuprofen [Motrin] 800 mg PO Q8HR PRN #30 tablet 01/04/21 Unknown Rx Ondansetron [Zofran Odt] 4 mg PO Q6HR PRN #20 tab.rapdis 01/04/21 Unknown Rx ED Physical Exam - General Limitations: No Limitations General appearance: alert, in no apparent distress - Head Head exam: Present: atraumatic, normocephalic, normal inspection - Eye Eye exam: Present: normal appearance, PERRL, EOMI Pupils: Present: normal accommodation - ENT ENT exam: Present: normal exam, normal orophraynx, mucous membranes moist, TM's normal bilaterally, normal external ear exam - Neck Neck exam: Present: normal inspection, full ROM. Absent: tenderness, meningismus, lymphadenopathy, thyromegaly - Respiratory Respiratory exam: Present: normal lung sounds bilaterally. Absent: respiratory distress, wheezes, rales, rhonchi, chest wall tenderness, accessory muscle use, decreased breath sounds, prolonged expiratory - Cardiovascular Cardiovascular Exam: Present: regular rate, normal rhythm, normal heart sounds. Absent: systolic murmur, diastolic murmur, rubs, gallop - GI/Abdominal GI/Abdominal exam: Present: soft, tenderness (Palpable diffuse suprapubic reproducible tenderness, no guarding or rebound), normal bowel sounds. Absent: guarding, rebound, hyperactive bowel sounds, hypoactive bowel sounds, organomegaly - Bi-manual exam: Present: other (Pelvic exam deferred at this time) - Extremities Exam Extremities exam: Present: normal inspection, full ROM, normal capillary refill. Absent: tenderness, pedal edema, joint swelling, calf tenderness - Back Exam Back exam: Present: normal inspection, full ROM. Absent: tenderness, CVA tenderness (R), CVA tenderness (L), muscle spasm, paraspinal tenderness, vertebral tenderness - Neurological Exam Neurological exam: Present: alert, oriented X3, CN II-XII intact, normal gait, reflexes normal - Psychiatric Psychiatric exam: Present: normal affect, normal mood - Skin Skin exam: Present: warm, dry, intact, normal color. Absent: rash ED Course Vital Signs 01/03/21 15:54 Temperature 97.9 F Pulse Rate 75 Respiratory 18 Rate Blood Pressure 130/109 [Right] O2 Sat by Pulse 100 Oximetry ED Medical Decision Making - Lab Data Result diagrams: 01/03/21 16:42 01/03/21 17:50 - Radiology Data Radiology results: report reviewed, image reviewed [facility] [address] [place] [address] XRay Report Signed Patient: JENNIFER BA MR#: [id number] : 1980 Acct:[id number] Age/Sex: 40 / F ADM Date: 01/03/21 Loc: ED Attending Dr: Ordering Physician: VANNA MANE Date of Service: 01/03/21 Procedure(s): XR chest routine 2V Accession Number(s): [id number] cc: VANNA MANE Fluoro Time In Minutes: CHEST 2 VIEWS INDICATION / CLINICAL INFORMATION: chest pain. COMPARISON: One view of the chest from 03/31/2020. FINDINGS: SUPPORT DEVICES: Unchanged. HEART / MEDIASTINUM: No significant abnormality. LUNGS / PLEURA: Clear lungs. No significant pleural effusion. No pneumothorax. ADDITIONAL FINDINGS: No significant additional findings. IMPRESSION: 1. No acute abnormality of the chest. Signer Name: Kermit Chang MD Signed: 01/03/2021 5:59 PM Workstation Name: [id number] Transcribed By: KIRA Dictated By: Kermit Chang MD Electronically Authenticated By: Kermit Chang MD Signed Date/Time: 01/03/211758 DD/ 57 TD/TT: [facility] [address] [place] [address] Cat Scan Report Signed Patient: JENNIFER BA MR#: [id number] : 1980 Acct:[id number] Age/Sex: 40 / F ADM Date: 01/03/21 Loc: ED Attending Dr: Ordering Physician: VANNA CARRILLO Date of Service: 01/03/21 Procedure(s): CT abdomen pelvis w con Accession Number(s): [id number] cc: VANNA CARRILLO CT OF THE ABDOMEN AND PELVIS WITH INTRAVENOUS CONTRAST INDICATION / CLINICAL INFORMATION: Suprapubic Pelvic pain with N/V and vaginal bleeding x 1 day. TECHNIQUE: The patient received 100 cc Omnipaque [address] scans at this location are performed using CT dose reduction for ALARA by means of automated exposure control. COMPARISON: 03/19/20. FINDINGS: ABDOMEN: The gallbladder is surgically absent. There are a couple of small accessory spleens. The [place] spleen is normal. The liver, bile ducts, pancreas, adrenal glands, kidneys and bowel demonstrate no significant abnormality. No adenopathy is present. The lung bases are clear. PELVIS: The distal ureters and urinary bladder are normal. The uterus and adnexal regions are unremarkable. No abnormal mass or fluid collection is seen. A normal appendix is present and there is no evidence of diverticulitis. I do not identify a hernia. No acute osseous abnormality is present. IMPRESSION: No acute abnormality or significant change. Signer Name: Akbar Sanchez MD Signed: 01/03/2021 11:34 PM Workstation Name: [id number] Transcribed By: RT Dictated By: Akbar Sanchez MD Electronically Authenticated By: Akbar Sanchez MD Signed Date/Time: 01/03/212333 DD/ 30 TD/TT: [facility] [address] [place] [address] Ultrasound Report Signed Patient: JENNIFER BA MR#: [id number] : 1980 Acct:[id number] Age/Sex: 40 / F ADM Date: 01/03/21 Loc: ED Attending Dr: Ordering Physician: VANNA CARRILLO Date of Service: 01/03/21 Procedure(s): US pelvic complete Accession Number(s): [id number] cc: VANNA CARRILLO . ULTRASOUND PELVIS INDICATION / CLINICAL INFORMATION: Pelvic Pain, heavy vaginal bleeding. TECHNIQUE: Transabdominal. Duplex Color Doppler used: Yes. COMPARISON: CT abdomen pelvis 03/19/2020 FINDINGS: Technically difficult examination secondary to patient body habitus and lack of transvaginal technique. UTERUS: Measures 6.5 x 2.9 x 3.7 cm. Endometrium is difficult to visualize on this examination. RIGHT ADNEXA: Ovary is not well visualized. No significant adnexal abnormality. LEFT ADNEXA: Ovary is not well visualized. No significant adnexal abnormality. URINARY BLADDER: No significant abnormality. FREE FLUID: None. ADDITIONAL FINDINGS: None. IMPRESSION: 1. Technically difficult examination without evidence of acute abnormality. Consider further evaluation, as warranted. Signer Name: Akbar Rodriges MD Signed: 01/03/2021 9:36 PM Workstation Name: [id number] Transcribed By: Dictated By: AKBAR RODRIGES III Electronically Authenticated By: AKBAR RODRIGES III Signed Date/Time: 01/03/212135 DD/ 33 TD/TT: - Medical Decision Making This is a A7 40-year-old -[place] female with a history of CHF, hypertension, GERD, inv-xuxsmtj-kkymigitd diabetes, CVA with resultant left- sided hemiparesis using cane to ambulate, gastroparesis and sleep apnea and uses CPAP presents to the ED with complaint of acute onset persistent diffuse low abdominal pain with heavy vaginal bleeding for the last 24 hours. Patient states that the pain and the heavy vaginal bleeding of worsened in the last 12 hours. Patient states that the symptoms are not similar to what she always experiences during her menstrual cycle because of heavy vaginal bleeding. Patient also complains of persistent nausea and vomiting, and having had up to 6 episodes of nausea and vomiting in the last 8 hours. In the ED, patient is alert and oriented x3 and is not in any distress with stable vital signs. Lab test results were reviewed and showed H&H of 8.4 and 27 respectively. The rest of the lab test results are nonactionable. Patient was treated for pain in the ED and also given antiemetics as well as normal saline 1 L IV bolus x1. Chest x-ray showed no acute cardiopulmonary abnormalities or pneumonitis. Pelvic ultrasound was indeterminate due to the patient's body habitus. Abdomen pelvis CT scan with contrast showed no acute abnormalities. On reevaluation, patient's pain is well controlled medications. Patient symptoms are likely due to the severe dysmenorrhea based on the history and physical exam findings. Patient was discharged home on pain medications and advised to follow-up with her [facility] RN physician in 3 to 5 days for reevaluation or return to the ED immediately if symptoms get worse. - Differential Diagnosis ; ovarian cyst; UTI; Fibroids; DUB; Endometrial Cancer Critical care attestation.: If time is entered above; I have spent that time in minutes in the direct care of this critically ill patient, excluding procedure time. ED Disposition Clinical Impression: Nausea and vomiting in adult patient, Severe dysmenorrhea, Acute pain in female pelvis Disposition: TO HOME OR SELFCARE Is pt being admited?: No Does the pt Need Aspirin: No Condition: Stable Instructions: Pelvic Pain, Female, [id number], Nausea and Vomiting, Adult, Ninh-yu-Fdat, Dysmenorrhea, [id number] Additional Instructions: All lab test results were reviewed and are all nonactionable. All imaging results showed no acute abnormalities including abdomen pelvis CT scan with contrast, pelvic ultrasound and chest x-ray. Therefore your symptoms are likely due to menstrual cramps resulting in severe pain and the bleeding is due to your current menstrual cycle. Therefore take pain medication as needed, observe complete pelvic rest, follow-up with your [facility] RN physician in 3 to 5 days for reevaluation. Return to the ED immediately if symptoms get worse. Prescriptions: Ibuprofen [Motrin] 800 mg PO Q8HR PRN #30 tablet PRN Reason: Pain , Severe (7-10) Acetaminophen/Codeine [Tylenol /Codeine # 3 tab] 1 - 2 tab PO Q6H PRN #12 tab PRN Reason: Pain , Severe (7-10) Ondansetron [Zofran Odt] 4 mg PO Q6HR PRN #20 tab.rapdis PRN Reason: Nausea Referrals: [facility] [Provider Group] - 7-10 days TRICIA SANCHZE MD [Staff Physician] - 3-5 Days Time of Disposition: 01:19 Print Language: KAZAKH
[2021-01-03] MEDS ORDERED: HYDROmorphone 1 MG/1 ML INJ ONE (20:53)
[2021-01-03] MEDS ORDERED: HYDROmorphone 1 MG/1 ML INJ IV ONE (20:54)
--- NOTE | 2021-01-03 21:41 | Ultrasound Report ---
. ULTRASOUND PELVIS INDICATION / CLINICAL INFORMATION: Pelvic Pain, heavy vaginal bleeding. TECHNIQUE: Transabdominal. Duplex Color Doppler used: Yes. COMPARISON: CT abdomen pelvis 03/19/2020 FINDINGS: Technically difficult examination secondary to patient body habitus and lack of transvagina l technique. UTERUS: Measures 6.5 x 2.9 x 3.7 cm. Endometrium is difficult to visualize on this examination. RIGHT ADNEXA: Ovary is not well visualized. No significant adnexal abnormality. LEFT ADNEXA: Ovary is not well visualized. No significant adnexal abnormality. URINARY BLADDER: No significant abnormality. FREE FLUID: None. ADDITIONAL FINDINGS: None. IMPRESSION: 1. Technically difficult examination without evidence of acute abnormality. Consider further evaluati on, as warranted. Signer Name: Reid Rodriges MD Signed: 01/03/2021 9:36 PM Workstation Name: [email or web address]
--- NOTE | 2021-01-03 23:39 | Cat Scan Report ---
CT OF THE ABDOMEN AND PELVIS WITH INTRAVENOUS CONTRAST INDICATION / CLINICAL INFORMATION: Suprapubic Pelvic pain with N/V and vaginal bleeding x 1 day. TECHNIQUE: The patient received 100 cc Omnipaque [address] scans at this location are performed using CT dose reduction for ALARA by means of automated exposure control. COMPARISON: 03/19/20. FINDINGS: ABDOMEN: The gallbladder is surgically absent. There are a couple of small accessory spleens. The clarissa raissa spleen is normal. The liver, bile ducts, pancreas, adrenal glands, kidneys and bowel demonstrate no significant abnormality. No adenopathy is present. The lung bases are clear. PELVIS: The distal ureters and urinary bladder are normal. The uterus and adnexal regions are unremar kable. No abnormal mass or fluid collection is seen. A normal appendix is present and there is no jw dence of diverticulitis. I do not identify a hernia. No acute osseous abnormality is present. IMPRESSION: No acute abnormality or significant change. Signer Name: Reid Sanchez MD Signed: 01/03/2021 11:34 PM Workstation Name: [id number]
[2021-01-04 01:24] LABS: Bacteria,Urine 1+ /HPF (Negative); Bilirubin,Urine NEG (Negative); Blood,Urine LG (Negative); Color,Urine Yellow (Yellow); Mucus,Urine FEW /HPF; Urobilinogen,Urine < 2.0 mg/dL (<2.0)
[2021-01-04 01:28] LABS: RBC,Urine > 182.0 /HPF (0.0-6.0)
== END 2021-01-04 02:15 | disposition home or self-care (01) ==
LOC: ED 14:13
DX: N94.6 Dysmenorrhea, unspecified (principal); R11.2 Nausea with vomiting, unspecified; R10.2 Pelvic and perineal pain; I11.0 Hypertensive heart disease with heart failure; I50.9 Heart failure, unspecified; K21.9 Gastro-esophageal reflux disease without esophagitis; Z79.899 Other long term (current) drug therapy; F17.200 Nicotine dependence, unspecified, uncomplicated; Z90.49 Acquired absence of other specified parts of digestive tract; Z91.018 Allergy to other foods
CPT/HCPCS: 36415; 71046; 74177; 76856; 80053; 81001; 83735; 83880; 84702; 85025; 85610; 85730; 86850; 86900; 86901; 87086; 96361; 96374; 96375; 99285; J1170; J2270; J2405; J7030; Q9967

== ENCOUNTER 2021-06-28 16:50 | Emergency (ER) | payer MEDICAID ==
[2021-06-28] MEDS ORDERED: MORPHINE 4 MG/1 ML INJ IV ONE (17:07)
[2021-06-28] MEDS ORDERED: ONDANSETRON 4 MG/2 ML INJ IV ONE (17:07)
[2021-06-28] MEDS ORDERED: SODIUM CHLORIDE 0.9% 1000 ML 1,000 ML IV ONE (17:07)
--- NOTE | 2021-06-28 17:10 | Emergency Department Report ---
HPI - General Chief Complaint: Abdominal Pain Time Seen by Provider: 06/28/21 17:03 - HPI HPI: 41-year-old -[place] female presents to the emergency department via EMS from a nearby family home with complaint of acute sharp left-sided abdominal, f lank and back pain, as well as some nausea without vomiting. She says that it started about 1 hour prior to presentation while the patient was at rest. It is 10 out of 10 in intensity. No known aggravating or alleviating factors. She denies any fever, dysuria, vaginal bleeding or discharge. She has not taken anything for symptoms prior to presentation other than her normal home medications. She has a past medical history of gastroparesis, chronic pain syndrome, previous CVA without residual deficits, diabetes. The patient is visiting from [facility], but has a PCP back home. ED Past Medical Hx - Past Medical History Previous Medical History?: Yes Hx Hypertension: Yes Hx CVA: Yes (left-sided weakness, uses walker and cane) Hx Congestive Heart Failure: Yes Hx Diabetes: Yes Hx GERD: Yes Hx Asthma: No Hx COPD: No Additional medical history: gastroparesis,anemia with h/o transfusions. sleep apnea with C-PAP - Surgical History Past Surgical History?: Yes Hx Internal Defibrillator: Yes (Cardiomyopathy, EF 55-60) Hx Cholecystectomy: Yes Additional Surgical History: partial Pituitary tumor removal, cryosurgery for cervical CA,. AICD - Social History Smoking Status: Current Every Day Smoker Substance Use Type: Alcohol - Medications Home Medications: Home Medications Medication Instructions Recorded Confirmed Last Taken Type FLUoxetine [PROzac] 20 mg PO QDAY 10/28/18 03/20/20 2 Days Ago History ~03/18/20 Furosemide [Lasix] 20 mg PO QDAY 10/28/18 03/20/20 2 Days Ago History ~03/18/20 Gabapentin [Neurontin] 400 mg PO TID 10/28/18 03/20/20 2 Days Ago History ~03/18/20 Insulin Aspart (Nf) [NovoLOG 17 units SUB-Q TIDAC 10/28/18 03/20/20 2 Days Ago H istory Flexpen] ~03/18/20 Insulin Detemir (Nf) [Levemir 20 units SUB-Q QHS 10/28/18 03/20/20 2 Days Ago History Flextouch] ~03/18/20 Metoclopramide HCl [Reglan TAB] 5 mg PO TID 10/28/18 03/20/20 2 Days Ago History ~03/18/20 Metoprolol Succinate [Toprol Xl] 25 mg PO QDAY 10/28/18 03/20/20 2 Days Ago History ~03/18/20 Montelukast [Singulair] 10 mg PO QPM 10/28/18 03/20/20 2 Days Ago History ~03/18/20 Ondansetron [Zofran Odt] 4 mg PO Q8HR #20 tab.rapdis 10/28/18 03/20/20 3 Days Ago Rx ~03/17/20 Oxycodone HCl/Acetaminophen 1 each PO Q6HR PRN 10/28/18 03/20/20 3 Days Ago History [Percocet 10/325 mg] ~03/17/20 Oxycodone HCl/Acetaminophen 1 each PO Q6HR PRN #12 tablet 10/28/18 03/20/20 3 Days Ago Rx [Percocet 7.5/325 mg] ~03/17/20 Promethazine HCl [Phenergan SUPPOS] 25 mg RC Q6H #12 supp.rect 10/28/18 03/20/20 Unknown Rx Spironolactone [Aldactone] 50 mg PO QDAY 10/28/18 03/20/20 2 Days Ago History ~03/18/20 Trazodone HCl 150 mg PO HS 10/28/18 03/20/20 2 Days Ago History ~03/18/20 Zaleplon 5 mg PO HS 10/28/18 03/20/20 2 Days Ago History ~03/18/20 diazePAM [Diazepam] 2 mg PO QDAY 10/28/18 03/20/20 Unknown History lisinopriL [Prinivil] 5 mg PO QDAY 10/28/18 03/20/20 2 Days Ago History ~03/18/20 Acetaminophen [Tylenol Arthritis] 650 mg PO Q6HR PRN #30 tablet.er 11/29/18 03/20/20 2 Days Ago Rx ~03/18/20 Dicyclomine [Bentyl] 10 mg PO QID PRN #20 capsule 11/29/18 03/20/20 2 Days Ago Rx ~03/18/20 Famotidine [Pepcid] 20 mg PO BID #60 tablet 11/29/18 03/20/20 2 Days Ago Rx ~03/18/20 Ondansetron [Zofran Odt] 4 mg PO Q8HR PRN #20 tab.rapdis 11/29/18 03/20/20 3 Days Ago Rx ~03/17/20 Promethazine [Phenergan SUPPOS] 50 mg HI Q6H PRN #15 supp.rect 11/29/18 03/20/20 2 Days Ago Rx ~03/18/20 Naproxen [Naprosyn] 500 mg PO BID #14 tablet 03/31/20 Unknown Rx HYDROcodone/APAP 5-325 [[place] 1 each PO Q6HR PRN #10 tablet 12/24/20 Unknown Rx 5/325] Ondansetron [Zofran Odt] 4 mg PO Q8HR PRN #10 tab.rapdis 12/24/20 Unknown Rx Acetaminophen/Codeine [Tylenol 1 - 2 tab PO Q6H PRN #12 tab 01/04/21 Unknown Rx /Codeine # 3 tab] Ibuprofen [Motrin] 800 mg PO Q8HR PRN #30 tablet 01/04/21 Unknown Rx Ondansetron [Zofran Odt] 4 mg PO Q6HR PRN #20 tab.rapdis 01/04/21 Unknown Rx ED Review of Systems ROS: Stated complaint: ABD PAIN Other details as noted in HPI Comment: All other systems reviewed and negative Constitutional: denies: chills, fever Eyes: denies: eye pain, vision change ENT: denies: ear pain, throat pain Respiratory: denies: cough, shortness of breath Cardiovascular: denies: chest pain, palpitations Gastrointestinal: abdominal pain, nausea Genitourinary: denies: dysuria, discharge Musculoskeletal: back pain. denies: arthralgia Skin: denies: rash, lesions Neurological: denies: headache, weakness Physical Exam - Physical Exam Vital Signs: Vital Signs 06/28/21 16:53 Temperature 98.6 F Pulse Rate 114 H Respiratory 18 Rate Blood Pressure 110/94 [Right] O2 Sat by Pulse 99 Oximetry Physical Exam: GENERAL: The patient is well-developed well-nourished. HENT: Normocephalic. Atraumatic. Patient has moist mucous membranes. EYES: Extraocular motions are intact. Mild NECK: Supple. Trachea is midline. CHEST/LUNGS: Clear to auscultation. There is no respiratory distress noted. HEART/CARDIOVASCULAR: Regular. There is no tachycardia. There is no murmur. ABDOMEN: Abdomen is soft. There is some left-sided abdominal and flank tenderness to palpation. No guarding. Patient has normal bowel sounds. Morbidly obese habitus. SKIN: Skin is warm and dry. NEURO: The patient is awake, alert, and oriented. The patient is cooperative. The patient has no focal neurologic deficits. Normal speech. MUSCULOSKELETAL: There is no tenderness or deformity. There is no limitation range of motion. BACK: No midline thoracic or lumbar tenderness to palpation. There is some left lumbar and lower thoracic tenderness to palpation. ED Course Vital Signs 06/28/21 16:53 Temperature 98.6 F Pulse Rate 114 H Respiratory 18 Rate Blood Pressure 110/94 [Right] O2 Sat by Pulse 99 Oximetry ED Medical Decision Making - Lab Data Result diagrams: 06/28/21 18:18 06/28/21 18:18 Lab Results 06/28/21 06/28/21 06/28/21 Range/Units 18:18 18:18 18:18 WBC 14.7 H (4.5-11.0) K/mm3 RBC 4.02 (3.65-5.03) M/mm3 Hgb 9.3 L (10.1-14.3) gm/dl Hct 29.6 L (30.3-42.9) % MCV 74 L (79-97) fl MCH 23 L (28-32) pg MCHC 31 (30-34) % RDW 18.0 H (13.2-15.2) % Plt Count 307 (140-440) K/mm3 Lymph % (Auto) 11.2 L (13.4-35.0) % [place] % (Auto) 4.7 (0.0-7.3) % Eos % (Auto) 1.7 (0.0-4.3) % Baso % (Auto) 1.1 (0.0-1.8) % Lymph # (Auto) 1.7 (1.2-5.4) K/mm3 [place] # (Auto) 0.7 (0.0-0.8) K/mm3 Eos # (Auto) 0.2 (0.0-0.4) K/mm3 Baso # (Auto) 0.2 H (0.0-0.1) K/mm3 Seg Neutrophils % 81.3 H (40.0-70.0) % Seg Neutrophils # 11.9 H (1.8-7.7) K/mm3 Sodium 139 (137-145) mmol/L Potassium 3.2 L (3.6-5.0) mmol/L Chloride 101.1 (98-107) mmol/L Carbon Dioxide 24 (22-30) mmol/L Anion Gap 17 mmol/L BUN 17 (7-17) mg/dL Creatinine 1.5 H (0.6-1.2) mg/dL Estimated GFR 47 ml/min BUN/Creatinine Ratio 11 % Glucose 253 H (65-100) mg/dL Calcium 8.7 (8.4-10.2) mg/dL Total Bilirubin < 0.20 (0.1-1.2) mg/dL Direct Bilirubin < 0.2 (0-0.2) mg/dL Indirect Bilirubin 0.0 mg/dL AST 14 (5-40) units/L ALT 10 (7-56) units/L Alkaline Phosphatase 93 (35-129) units/L Total Protein 7.8 (6.3-8.2) g/dL Albumin 4.1 (3.9-5) g/dL Albumin/Globulin Ratio 1.1 % Lipase 46 (13-60) units/L HCG, Qual Negative (Negative) - Radiology Data Radiology results: report reviewed CT ABDOMEN AND PELVIS WITHOUT CONTRAST HISTORY: left sided flank pain, radiation to back COMPARISON: 01/02/2021 TECHNIQUE: Axial CT images were obtained through the abdomen and pelvis without IV contrast. Sagittal and coronal reformatted images. All CT scans at this location are performed using CT dose reduction for ALARA by means of automated exposure control. FINDINGS: CT ABDOMEN: Lung Bases: Mild hypoventilatory changes. Borderline heart size. Liver: No significant abnormality. Biliary: Gallbladder is surgically absent. Spleen: No significant abnormality. Unenlarged. Pancreas: No significant abnormality. Adrenals: No significant abnormality. Kidneys: No significant abnormality. Lymphatics: No lymphadenopathy. Vasculature: No significant abnormality. Bowel/Peritoneum: No significant abnormality. No free air. No free fluid. Normal appendix. CT PELVIS: : No significant abnormality. Osseous Structures: No significant abnormality. Additional Findings: None IMPRESSION: No acute abnormality. No clear explanation for left flank pain. - Medical Decision Making This patient presents to the emergency department with complaint of acute left- sided abdominal, flank and back pain that started earlier in the day. She has a morbidly obese habitus. There is some reproducible tenderness to palpation. Labs show a mild leukocytosis of 14,000, mild hypokalemia with potassium of 3.2. She has some mild renal sufficiency with a GFR of 47 that may be secondary to some dehydration. She had a CT scan of the abdomen and pelvis that did not show any acute process or etiology of her discomfort. The patient was given 2 doses of analgesia with improvement of her symptoms. The patient did not want to remain in the emergency department for a urinalysis to be done, but denies any dysuria. She says that she has good outpatient follow-up with primary care back in [place]. She will return to the closest emergency department with any worsening of her symptoms or with any acute distress. Critical Care Time: No Critical care attestation.: If time is entered above; I have spent that time in minutes in the direct care of this critically ill patient, excluding procedure time. ED Disposition Clinical Impression: Flank pain, Hypokalemia Abdominal pain Qualifiers: Abdominal location: unspecified location Qualified Code(s): R10.9 - Unspecified abdominal pain Back pain Qualifiers: Back pain location: back pain in unspecified location Chronicity: acute Back pain laterality: left Qualified Code(s): M54.9 - Dorsalgia, unspecified Disposition: 01 HOME / SELF CARE / HOMELESS Is pt being admited?: No Condition: Stable Instructions: Abdominal Pain, Adult, Hypokalemia, Acute Back Pain, Adult, Flank Pain, Adult, Abdominal Pain (ED) Additional Instructions: Please follow-up with your primary care physician in the next few days. Return to the emergency department with any worsening of your symptoms, new or concerning symptoms not addressed during this current emergency department visit, or with any acute distress. Referrals: PRIMARY MD HERNANDEZ [Primary Care Provider] - 2-3 Days Time of Disposition: 21:09
[2021-06-28 18:41] LABS: Basophils # (Auto) 0.2 K/mm3 (0.0-0.1); Basophils % (Auto) 1.1 % (0.0-1.8); Eosinophils # (Auto) 0.2 K/mm3 (0.0-0.4); Eosinophils % (Auto) 1.7 % (0.0-4.3); Hematocrit 29.6 % (30.3-42.9); Hemoglobin 9.3 gm/dl (10.1-14.3); Lymphocytes # (Auto) 1.7 K/mm3 (1.2-5.4); Lymphocytes % (Auto) 11.2 % (13.4-35.0); Mean Corpuscular HGB Conc 31 % (30-34); Mean Corpuscular Volume 74 fl (79-97); Monocytes # (Auto) 0.7 K/mm3 (0.0-0.8); Monocytes % (Auto) 4.7 % (0.0-7.3); Platelet Count 307 K/mm3 (140-440); Red Blood Count 4.02 M/mm3 (3.65-5.03)
[2021-06-28 18:59] LABS: Alanine Aminotransferase 10 units/L (7-56); Albumin 4.1 g/dL (3.9-5); BUN/Creatinine Ratio 11; Blood Urea Nitrogen 17 mg/dL (7-17); Calcium 8.7 mg/dL (8.4-10.2); Hemolysis Index 1
[2021-06-28 19:00] LABS: Bilirubin,Direct < 0.2 mg/dL (0-0.2)
[2021-06-28] MEDS ORDERED: POTASSIUM CHLORIDE ER 10 MEQ TAB PO ONE (19:06)
--- NOTE | 2021-06-28 20:07 | Cat Scan Report ---
CT ABDOMEN AND PELVIS WITHOUT CONTRAST HISTORY: left sided flank pain, radiation to back COMPARISON: 01/02/2021 TECHNIQUE: Axial CT images were obtained through the abdomen and pelvis without IV contrast. Sagittal and coronal reformatted images. All CT scans at this location are performed using CT dose reduction for ALARA by means of automated exposure control. FINDINGS: CT ABDOMEN: Lung Bases: Mild hypoventilatory changes. Borderline heart size. Liver: No significant abnormality. Biliary: Gallbladder is surgically absent. Spleen: No significant abnormality. Unenlarged. Pancreas: No significant abnormality. Adrenals: No significant abnormality. Kidneys: No significant abnormality. Lymphatics: No lymphadenopathy. Vasculature: No significant abnormality. Bowel/Peritoneum: No significant abnormality. No free air. No free fluid. Normal appendix. CT PELVIS: : No significant abnormality. Osseous Structures: No significant abnormality. Additional Findings: None IMPRESSION: No acute abnormality. No clear explanation for left flank pain. Signer Name: Melquiades Craft Jr, MD Signed: 06/28/2021 8:03 PM Workstation Name: [id number]
[2021-06-28] MEDS ORDERED: HYDROmorphone 1 MG/1 ML INJ IV ONE (20:32)
[2021-06-28 21:20] VITALS: BP 112/67
== END 2021-06-28 21:25 | disposition home or self-care (01) ==
LOC: ED 16:50
DX: R10.9 Unspecified abdominal pain (principal); E87.6 Hypokalemia; M54.9 Dorsalgia, unspecified; I10 Essential (primary) hypertension; E11.8 Type 2 diabetes mellitus with unspecified complications; Z86.79 Personal history of other diseases of the circulatory system; Z86.73 Personal history of transient ischemic attack (TIA), and cerebral infarction without residual deficits; Z90.49 Acquired absence of other specified parts of digestive tract; F17.200 Nicotine dependence, unspecified, uncomplicated; F10.20 Alcohol dependence, uncomplicated
CPT/HCPCS: 36415; 74176; 80048; 80076; 83690; 84703; 85025; 96361; 96374; 96375; 99284; J1170; J2270; J2405; J7030

== ENCOUNTER 2021-07-04 16:44 | Emergency (ER) | payer SELFPAY ==
[2021-07-04 17:54] VITALS: BP 112/63
[2021-07-04] MEDS ORDERED: oxyCODONE /ACETAMINOPHEN 5-325MG TAB PO ONE (18:36)
[2021-07-04] MEDS ORDERED: ONDANSETRON 4 MG ODT TAB PO ONE (18:36)
--- NOTE | 2021-07-04 20:13 | Emergency Department Report ---
ED Abdominal Pain HPI - General Chief Complaint: Back Pain/Injury Stated Complaint: LOWER BACK PAIN/B/I HIP PAIN Time Seen by Provider: 07/04/21 17:42 Source: patient Mode of arrival: Ambulatory Limitations: No Limitations - History of Present Illness Initial Comments: 41-year-old female, history of gastroparesis, diabetes, pancreatitis, chronic pain syndrome, presents to ED with complaint of bilateral flank pain and back pain. Patient states this is the pain that she usually gets from her pancreatitis. Patient denies any alcohol use. States she is unsure what causes her pancreatitis. Patient was seen for same 6 days ago. She had labs and a normal CT at that time. Currently, patient reports nausea, no vomiting. MD Complaint: other -: This afternoon Location: bilateral flank Migration to: no migration Severity: moderate Severity scale (0 -10): 3 Quality: aching Consistency: constant Improves With: nothing Worsens With: nothing Associated Symptoms: nausea. denies: vomiting, diarrhea, fever - Related Data Home Medications Medication Instructions Recorded Confirmed Last Taken FLUoxetine [PROzac] 20 mg PO QDAY 10/28/18 03/20/20 2 Days Ago ~03/18/20 Furosemide [Lasix] 20 mg PO QDAY 10/28/18 03/20/20 2 Days Ago ~03/18/20 Gabapentin [Neurontin] 400 mg PO TID 10/28/18 03/20/20 2 Days Ago ~03/18/20 Insulin Aspart (Nf) [NovoLOG 17 units SUB-Q TIDAC 10/28/18 03/20/20 2 Days Ago Flexpen] ~03/18/20 Insulin Detemir (Nf) [Levemir 20 units SUB-Q QHS 10/28/18 03/20/20 2 Days Ago Flextouch] ~03/18/20 Metoclopramide HCl [Reglan TAB] 5 mg PO TID 10/28/18 03/20/20 2 Days Ago ~03/18/20 Metoprolol Succinate [Toprol Xl] 25 mg PO QDAY 10/28/18 03/20/20 2 Days Ago ~03/18/20 Montelukast [Singulair] 10 mg PO QPM 10/28/18 03/20/20 2 Days Ago ~03/18/20 Oxycodone HCl/Acetaminophen 1 each PO Q6HR PRN 10/28/18 03/20/20 3 Days Ago [Percocet 10/325 mg] ~03/17/20 Spironolactone [Aldactone] 50 mg PO QDAY 10/28/18 03/20/20 2 Days Ago ~03/18/20 Trazodone HCl 150 mg PO HS 10/28/18 03/20/20 2 Days Ago ~03/18/20 Zaleplon 5 mg PO HS 10/28/18 03/20/20 2 Days Ago ~03/18/20 diazePAM [Diazepam] 2 mg PO QDAY 10/28/18 03/20/20 Unknown lisinopriL [Prinivil] 5 mg PO QDAY 10/28/18 03/20/20 2 Days Ago ~03/18/20 Previous Rx's Medication Instructions Recorded Last Taken Type Ondansetron [Zofran Odt] 4 mg PO Q8HR #20 tab.rapdis 10/28/18 3 Days Ago Rx ~03/17/20 Oxycodone HCl/Acetaminophen 1 each PO Q6HR PRN #12 tablet 10/28/18 3 Days Ago Rx [Percocet 7.5/325 mg] ~03/17/20 Promethazine HCl [Phenergan SUPPOS] 25 mg RC Q6H #12 supp.rect 10/28/18 Unknown Rx Acetaminophen [Tylenol Arthritis] 650 mg PO Q6HR PRN #30 tablet.er 11/29/18 2 Days Ago Rx ~03/18/20 Dicyclomine [Bentyl] 10 mg PO QID PRN #20 capsule 11/29/18 2 Days Ago Rx ~03/18/20 Famotidine [Pepcid] 20 mg PO BID #60 tablet 11/29/18 2 Days Ago Rx ~03/18/20 Ondansetron [Zofran Odt] 4 mg PO Q8HR PRN #20 tab.rapdis 11/29/18 3 Days Ago Rx ~03/17/20 Promethazine [Phenergan SUPPOS] 50 mg DC Q6H PRN #15 supp.rect 11/29/18 2 Days Ago Rx ~03/18/20 Naproxen [Naprosyn] 500 mg PO BID #14 tablet 03/31/20 Unknown Rx HYDROcodone/APAP 5-325 [[place] 1 each PO Q6HR PRN #10 tablet 12/24/20 Unknown Rx 5/325] Ondansetron [Zofran Odt] 4 mg PO Q8HR PRN #10 tab.rapdis 12/24/20 Unknown Rx Acetaminophen/Codeine [Tylenol 1 - 2 tab PO Q6H PRN #12 tab 01/04/21 Unknown Rx /Codeine # 3 tab] Ibuprofen [Motrin] 800 mg PO Q8HR PRN #30 tablet 01/04/21 Unknown Rx Ondansetron [Zofran Odt] 4 mg PO Q6HR PRN #20 tab.rapdis 01/04/21 Unknown Rx Allergies Allergy/AdvReac Type Severity Reaction Status Date / Time banana Allergy Unknown Verified 06/28/18 14:43 broccoli Allergy Unknown Verified 06/28/18 14:43 pineapple Allergy Unknown Verified 06/28/18 14:43 sweet potato Allergy Unknown Verified 07/04/21 16:52 carrots Allergy Unknown Uncoded 05/04/17 18:00 ice cream Allergy Unknown Uncoded 05/04/17 18:00 ED Review of Systems ROS: Stated complaint: LOWER BACK PAIN/B/I HIP PAIN Other details as noted in HPI Comment: All other systems reviewed and negative Constitutional: denies: chills, fever Gastrointestinal: nausea, vomiting Musculoskeletal: back pain ED Past Medical Hx - Past Medical History Hx Hypertension: Yes Hx CVA: Yes (left-sided weakness, uses walker and cane) Hx Congestive Heart Failure: Yes Hx Diabetes: Yes Hx GERD: Yes Hx Asthma: No Hx COPD: No Additional medical history: gastroparesis,anemia with h/o transfusions. sleep apnea with C-PAP - Surgical History Hx Internal Defibrillator: Yes (Cardiomyopathy, EF 55-60) Hx Cholecystectomy: Yes Additional Surgical History: partial Pituitary tumor removal, cryosurgery for cervical CA,. AICD - Social History Smoking Status: Current Every Day Smoker Substance Use Type: Alcohol - Medications Home Medications: Home Medications Medication Instructions Recorded Confirmed Last Taken Type FLUoxetine [PROzac] 20 mg PO QDAY 10/28/18 03/20/20 2 Days Ago History ~03/18/20 Furosemide [Lasix] 20 mg PO QDAY 10/28/18 03/20/20 2 Days Ago History ~03/18/20 Gabapentin [Neurontin] 400 mg PO TID 10/28/18 03/20/20 2 Days Ago History ~03/18/20 Insulin Aspart (Nf) [NovoLOG 17 units SUB-Q TIDAC 10/28/18 03/20/20 2 Days Ago History Flexpen] ~03/18/20 Insulin Detemir (Nf) [Levemir 20 units SUB-Q QHS 10/28/18 03/20/20 2 Days Ago History Flextouch] ~03/18/20 Metoclopramide HCl [Reglan TAB] 5 mg PO TID 10/28/18 03/20/20 2 Days Ago History ~03/18/20 Metoprolol Succinate [Toprol Xl] 25 mg PO QDAY 10/28/18 03/20/20 2 Days Ago History ~03/18/20 Montelukast [Singulair] 10 mg PO QPM 10/28/18 03/20/20 2 Days Ago History ~03/18/20 Ondansetron [Zofran Odt] 4 mg PO Q8HR #20 tab.rapdis 10/28/18 03/20/20 3 Days Ago Rx ~03/17/20 Oxycodone HCl/Acetaminophen 1 each PO Q6HR PRN 10/28/18 03/20/20 3 Days Ago History [Percocet 10/325 mg] ~03/17/20 Oxycodone HCl/Acetaminophen 1 each PO Q6HR PRN #12 tablet 10/28/18 03/20/20 3 Days Ago Rx [Percocet 7.5/325 mg] ~03/17/20 Promethazine HCl [Phenergan SUPPOS] 25 mg RC Q6H #12 supp.rect 10/28/18 03/20/20 Unknown Rx Spironolactone [Aldactone] 50 mg PO QDAY 10/28/18 03/20/20 2 Days Ago History ~03/18/20 Trazodone HCl 150 mg PO HS 10/28/18 03/20/20 2 Days Ago History ~03/18/20 Zaleplon 5 mg PO HS 10/28/18 03/20/20 2 Days Ago History ~03/18/20 diazePAM [Diazepam] 2 mg PO QDAY 10/28/18 03/20/20 Unknown History lisinopriL [Prinivil] 5 mg PO QDAY 10/28/18 03/20/20 2 Days Ago History ~03/18/20 Acetaminophen [Tylenol Arthritis] 650 mg PO Q6HR PRN #30 tablet.er 11/29/18 03/20/20 2 Days Ago Rx ~03/18/20 Dicyclomine [Bentyl] 10 mg PO QID PRN #20 capsule 11/29/18 03/20/20 2 Days Ago Rx ~03/18/20 Famotidine [Pepcid] 20 mg PO BID #60 tablet 11/29/18 03/20/20 2 Days Ago Rx ~03/18/20 Ondansetron [Zofran Odt] 4 mg PO Q8HR PRN #20 tab.rapdis 11/29/18 03/20/20 3 Days Ago Rx ~03/17/20 Promethazine [Phenergan SUPPOS] 50 mg DC Q6H PRN #15 supp.rect 11/29/18 03/20/20 2 Days Ago Rx ~03/18/20 Naproxen [Naprosyn] 500 mg PO BID #14 tablet 03/31/20 Unknown Rx HYDROcodone/APAP 5-325 [[place] 1 each PO Q6HR PRN #10 tablet 12/24/20 Unknown Rx 5/325] Ondansetron [Zofran Odt] 4 mg PO Q8HR PRN #10 tab.rapdis 12/24/20 Unknown Rx Acetaminophen/Codeine [Tylenol 1 - 2 tab PO Q6H PRN #12 tab 01/04/21 Unknown Rx /Codeine # 3 tab] Ibuprofen [Motrin] 800 mg PO Q8HR PRN #30 tablet 01/04/21 Unknown Rx Ondansetron [Zofran Odt] 4 mg PO Q6HR PRN #20 tab.rapdis 01/04/21 Unknown Rx ED Physical Exam - General Limitations: No Limitations General appearance: alert, in no apparent distress, obese - Head Head exam: Present: atraumatic, normocephalic - Eye Eye exam: Present: normal appearance, EOMI - ENT ENT exam: Present: mucous membranes moist - Neck Neck exam: Present: normal inspection - Respiratory Respiratory exam: Present: normal lung sounds bilaterally. Absent: respiratory distress - Cardiovascular Cardiovascular Exam: Present: regular rate, normal rhythm - GI/Abdominal GI/Abdominal exam: Present: soft, tenderness (Mild epigastric). Absent: disten ded - Back Exam Back exam: Absent: CVA tenderness (R), CVA tenderness (L) - Neurological Exam Neurological exam: Present: alert, oriented X3 - Psychiatric Psychiatric exam: Present: normal affect, normal mood - Skin Skin exam: Present: warm, dry, intact, normal color ED Course Vital Signs 07/04/21 07/04/21 16:48 17:53 Temperature 98.4 F 98.2 F Pulse Rate 103 H 89 Respiratory 16 12 Rate Blood Pressure 124/84 112/63 [Left] O2 Sat by Pulse 100 98 Oximetry - Reevaluation(s) Reevaluation #1: 07/04/21 20:14 I went in to speak with patient, however she is not in her chair. Patient seems to have eloped. ED Medical Decision Making - Differential Diagnosis Pancreatitis, UTI, chronic pain Critical care attestation.: If time is entered above; I have spent that time in minutes in the direct care of this critically ill patient, excluding procedure time. ED Disposition Clinical Impression: Abdominal pain, Back pain Disposition: 07 LEFT AWOL/ELOPED Is pt being admited?: No Condition: Stable Referrals: PRIMARY CARE, [Primary Care Provider] - 3-5 Days Time of Disposition: 20:26
[2021-07-04 20:31] LABS: Bacteria,Urine 1+ /HPF (Negative); Bilirubin,Urine NEG (Negative); Blood,Urine NEG (Negative); Color,Urine Straw (Yellow); Mucus,Urine FEW /HPF; Protein,Urine <15 mg/dL mg/dL (Negative); Urobilinogen,Urine < 2.0 mg/dL (<2.0)
== END 2021-07-04 21:20 | disposition left against medical advice (07) ==
LOC: ED 16:44
DX: M54.9 Dorsalgia, unspecified (principal); R10.9 Unspecified abdominal pain; I11.0 Hypertensive heart disease with heart failure; I50.9 Heart failure, unspecified; E11.8 Type 2 diabetes mellitus with unspecified complications; Z86.73 Personal history of transient ischemic attack (TIA), and cerebral infarction without residual deficits; K21.9 Gastro-esophageal reflux disease without esophagitis; D64.9 Anemia, unspecified; G47.30 Sleep apnea, unspecified; Z98.890 Other specified postprocedural states; F17.200 Nicotine dependence, unspecified, uncomplicated; Z91.018 Allergy to other foods
CPT/HCPCS: 81001; 82962; 99283; Q0162